=== PATIENT | male | born 1955 | race Caucasian/White ===

== ENCOUNTER → 2018-09-19 08:18 | Outpatient (POV) | payer BC, SELFPAY | PROVIDERS: Visit Provider Dermatology | DX: Z00.00 Encounter for general adult medical examination without abnormal findings (principal) ==

== ENCOUNTER 2019-04-10 13:00 | Outpatient (RCR) | payer MEDICARE, SELFPAY | END 2019-04-10 13:35 | disposition home or self-care (01) | LOC: OT 13:00 | PROVIDERS: Visit Provider Internal Medicine | DX: M25.512 Pain in left shoulder (principal) | CPT/HCPCS: 97014; 97110; 97165; G0283 ==

== ENCOUNTER 2020-01-17 08:00 | Outpatient (RCR) | payer MEDICARE, BC, SELFPAY | END 2020-01-17 08:05 | disposition home or self-care (01) | LOC: PT 08:00 | PROVIDERS: Visit Provider Orthopaedic Surgery Adult Reconstructive Orthopaedic Surgery | DX: M51.36 Other intervertebral disc degeneration, lumbar region (principal) | CPT/HCPCS: 97010; 97014; 97033; 97035; 97110; 97163; 97164; G0283 ==

== ENCOUNTER → 2020-04-01 10:57 | Outpatient (POV) | payer MEDICARE, BC, SELFPAY | PROVIDERS: Visit Provider Dermatology | DX: Z00.00 Encounter for general adult medical examination without abnormal findings (principal) ==

== ENCOUNTER → 2020-10-20 14:05 | Outpatient (CLI) | payer MEDICARE, BC, SELFPAY | PROVIDERS: PCP Family Medicine; Visit Provider Family Medicine | DX: I34.0 Nonrheumatic mitral (valve) insufficiency (principal) | CPT/HCPCS: 93306 ==

== ENCOUNTER → 2020-12-08 16:53 | Outpatient (CLI) | payer MEDICARE, BC, SELFPAY ==
--- NOTE | 2020-12-08 16:58 | XR_ITS ---
PROCEDURE: XR CHEST 2V CLINICAL HISTORY: COUGH COMPARISON: No exams were available for comparison FINDINGS: The cardiomediastinal silhouette and pulmonary vascularity are within normal limits. The lung apices are clipped on the exam. Suggest that the patient return at their lesion or and at no additional charge for repeat exam to include the lung apices. The remaining lungs are clear. No acute bony abnormalities. IMPRESSION: No acute finding. Lung apices are clipped on the PA view. Suggest patient return at no additional charge for repeat PA view to include the lung apices. Dictated by: Chandan Mohr MD 12/09/2020 13:05 Chandan Mohr MD in [place] 12/09/2020 13:05
== END ==
PROVIDERS: PCP Family Medicine; Visit Provider Family Medicine
DX: R05 Cough (principal)
CPT/HCPCS: 71046

== ENCOUNTER → 2020-12-22 10:08 | Outpatient (POV) | payer MEDICARE, BC, SELFPAY ==
[2020-12-22 10:25] VITALS: BP 137/80; PULSE 70; RESP 18; O2SAT 98; BMI 27.9
--- NOTE | 2020-12-22 11:40 | HMH.PMCON ---
Assessment and Plan (1) Right low back pain Status: Chronic Category: Medical Code(s): M54.5 - Low back pain (2) Lumbar radiculopathy Status: Chronic Category: Medical Code(s): M54.16 - Radiculopathy, lumbar region - Assessment and plan all Dx Assessment and Plan for all problems:: Patient has not had any recent imaging of his lumbar spine. He has tried and failed conservative therapies of injections along with continued home stretching. He is also tried physical therapy for greater than 6 weeks with no significant relief. He has tried anti-inflammatories with no relief. He has tried taking Flexeril which is caused him to have severe drowsiness. We will place him on Skelaxin 800 mg 1 tablet p.o. twice daily. MRI of his lumbar spine and see him back in the clinic after his imaging to discuss further plan of care and review the MRI results. Patient has been instructed to contact the clinic with any concerns before the next appointment. Dr. Luna has reviewed this note and agrees with this plan of care. This note was dictated using voice recognition software and make contain errors or omissions. HPI - Data of Consult Patient: new to practice Consult date: 12/22/20 Requesting Physician: Delicia Brunner APRN Primary Care Provider: Jose Rodriguez MD - Consult Narrative Reason for consult: Right low back pain, right buttock pain, right leg pain History of present illness: Mr. Awan is a 65 year old male presents today for consultation for chronic right low back and right buttock pain. The pain is radiating into his right leg. Patient reports his pain has been ongoing for years. He says the pain is progressively gotten worse to the point he is unable to lean forward without having significant pain. He says that any work outdoors causes him to have severe pain. His pain generally improves if he stands and walks, however, worsens when rising from a sitting position and with leaning forward to tie his shoes or when doing any outdoor work. He does rate his pain a 5 out of 10. He has tried injective therapy for which he thinks were lumbar epidural steroid injections in the past for which gave him no significant relief. He has tried physical therapy for greater than 6 weeks in the past and does continue with home stretching. He does not have any recent imaging. He does use ice and heat therapies and does take Flexeril, however, it causes severe drowsiness and he has not been taking it. He is interested in injective therapy. CC: Delicia Brunner APRN [facility] History I have reviewed the patient's past medical history: Yes *Have you ever received a pneumonia vaccine?: Yes *Have you received a flu vaccine this season?: Yes Other Surgeries: Yes: No Previous Surgery Amputation: No Fractures: No - *Social History Smoking Status: Never smoker Alcohol Intake: current Alcohol Intake Frequency:: holidays/special occasions only *Occupational Status:: unemployed *Travel in the last 8 weeks: None Family Hx:: No significant family history Review of Systems - Review of Systems Review of Systems General: No recent weight changes, no fever, no sleep disturbances Respiratory: No cough, no shortness of air, no recurring pulmonary infections Cardiovascular/peripheral vascular: No chest pain, no palpitations, no edema, no shortness of breath Gastrointestinal: No new onset incontinence, normal bowel movements reported Genitourinary: No new onset incontinence Musculoskeletal: Right low back pain, right buttock pain, right leg pain worse with leaning forward Psychiatric: Normal mood/affect Neurological: [Denies weakness in extremities], [denies balance issues] Meds Home Medications Medication Instructions Recorded Confirmed Type Aspirin [Aspirin 81mg EC Tab] 81 mg PO DAILY 12/22/20 12/22/20 History Metaxalone [Skelaxin 800mg Tablet] 800 mg PO BID 30 Days #60 tab 12/22/20 Rx Allergies Aller
== END ==
PROVIDERS: PCP Family Medicine; Visit Provider Clinical Nurse Specialist Family Health
DX: M54.5 Low back pain (principal); M54.16 Radiculopathy, lumbar region
CPT/HCPCS: 99202; G0463

== ENCOUNTER → 2020-12-25 14:58 | Outpatient (CLI) | payer MEDICARE, BC, SELFPAY ==
--- NOTE | 2020-12-25 | MR_ITS ---
PROCEDURE: MR LUMBAR SPINE WO CON CLINICAL INDICATION: BACK PAIN Low back pain when bending or sitting. No injury. Symptoms [id number]. Worsening in the last few years. No prior COMPARISON: No exams were available for comparison TECHNIQUE: Standard multiplanar multiecho sequences are performed without contrast. 3-D MIP and myelographic images are also rendered and reviewed FINDINGS: There is normal alignment. Spinal cord ends at the T12-L1 level. There is mild reversal of the lumbar lordosis. T12-L1: Mild degenerative disc disease L1-L2: Degenerative disc disease with anterior osteophytes. Facet and ligamentum hypertrophic change L2-L3: Mild facet and ligamentum hypertrophy L3-L4: Facet and ligamentum hypertrophy with mild bulging disc with a small right paracentral disc herniation with minimal inferior extrusion best detected on the sagittal images.. There is bilateral lateral recess narrowing right greater than left with some impingement upon the right L4 nerve root. Bilateral foraminal narrowing is present. There is transverse canal stenosis measuring 10 mm. L4-5: Degenerative disc disease with bulging disc with moderate facet and ligamentum hypertrophic change with bilateral lateral recess narrowing and moderate to severe bilateral foraminal narrowing left greater than right. L5-S1: Degenerative disc disease with mild concentric bulging disc along with facet and ligamentum hypertrophy. There is a small right foraminal disc osteophyte complex causing right-sided foraminal narrowing and causing some impingement upon the exiting L5 nerve root. 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 IMPRESSION: 1. L3-L4: Facet and ligamentum hypertrophy with mild bulging disc with a small right paracentral disc herniation with minimal inferior extrusion best detected on the sagittal images.. There is bilateral lateral recess narrowing right greater than left with some impingement upon the right L4 nerve root. Bilateral foraminal narrowing is present. There is transverse canal stenosis measuring 10 mm. 2. L4-5: Degenerative disc disease with bulging disc with moderate facet and ligamentum hypertrophic change with bilateral lateral recess narrowing and moderate to severe bilateral foraminal narrowing left greater than right. 3. L5-S1: Degenerative disc disease with mild concentric bulging disc along with facet and ligamentum hypertrophy. There is a small right foraminal disc osteophyte complex causing right-sided foraminal narrowing and causing some impingement upon the exiting L5 nerve root Dictated by: Chandan Mohr MD 12/26/2020 08:17 Chandan Mohr MD in [place] 12/26/2020 08:17
== END ==
PROVIDERS: PCP Family Medicine; Visit Provider Clinical Nurse Specialist Family Health
DX: M54.5 Low back pain (principal)
CPT/HCPCS: 72148; 76376

== ENCOUNTER → 2021-01-01 14:44 | Outpatient (POV) | payer MEDICARE, BC, SELFPAY ==
[2021-01-01 15:15] VITALS: BP 139/78; PULSE 61; RESP 18; O2SAT 96; BMI 27.9
--- NOTE | 2021-01-02 07:46 | HMH.PAINSOAP ---
[facility] Pain Management SOAP Note Subjective:: Patient is a 65-year-old white male who presents today for follow-up. He is being seen in our clinic for chronic right low back pain and right buttock pain. He also has pain in his left low back.. He is having radicular pain into the right leg. His pain has been ongoing for many years. Is progressively gotten worse. Patient is unable to move forward without having significant pain. He does work outdoors which causes him to have severe pain. He says it improves if he stands and walks, however, upon rising from a sitting position and leaning forward to tie his shoes his pain becomes a 10 out of 10. Patient has tried physical therapy in the past for greater than 6 weeks with no significant relief. He has also tried anti-inflammatories with no relief. He does use ice and heat therapy. He did undergo lumbar epidural steroid injection in the past with no relief as well. He has tried taking Flexeril, however overall may be causing the healthcare drowsiness. He is here today to review his imaging of his lumbar spine. His pain is a 7 out of 10 with leaning forward. Review of Systems General: No recent weight changes, no fever, no sleep disturbances Respiratory: No cough, no shortness of air, no recurring pulmonary infections Cardiovascular/peripheral vascular: No chest pain, no palpitations, no edema, no shortness of breath Gastrointestinal: No new onset incontinence, normal bowel movements reported Genitourinary: No new onset incontinence Musculoskeletal: Low back pain worse with leaning forward Psychiatric: Normal mood/affect Neurological: [Denies weakness in extremities], [denies balance issues] Objective:: Physical exam General: Alert and oriented x3, no acute distress, pleasant and cooperative, [on room air] Lungs: Respirations even and unlabored, symmetrical chest expansion Eyes: PERRL Musculoskeletal: Flexion and extension of [] lumbar spine somewhat guarded secondary to pain, deep tendon reflexes normal, strength in upper and lower extremities [5/5], normal gait noted, positive Kemps test Neurological: 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 Patient does have a small herniated disc. He has tried a lumbar epidural steroid injection in the past with no relief. He would like a neurosurgical referral. He is having pain with leaning forward. He has a positive Kemps test. We will schedule him for medial branch block 0.4 joint injection at L3-L4 L4-L5 bilaterally. The pain is on bilateral low back area, however, worse on the right side and into the left leg. He is not on anticoagulation therapy. We will see him back in clinic after his injection to reevaluate his symptoms and he will also undergo referral with Dr. Nick. Risks and benefits of the procedure have been explained to the patient. Patient would like to proceed with the procedure. Possible side effects of corticosteroids have been discussed with the patient. Patient has been instructed to contact the clinic with any concerns before the next appointment. Dr. Luna has reviewed this note and agrees with this plan of care. This note was dictated using voice recognition software and make contain errors or omissions. [facility] History I have reviewed the patient's past medical history: Yes *Have you ever received a pneumonia vaccine?: Yes *Have you received a flu vaccine this season?: Yes Other Surgeries: Yes: No Previous Surgery Amputation: No Fractures: No - *Social History Smoking Status: Never smoker Alcohol Intake: current Alcohol Intake Frequency:: holidays/special occasions only *Occupational Status:: other *Travel in the last 8 weeks: None Family Hx:: No significant family history
== END ==
PROVIDERS: PCP Family Medicine; Visit Provider Clinical Nurse Specialist Family Health
DX: M51.16 Intervertebral disc disorders with radiculopathy, lumbar region (principal); M54.06 Panniculitis affecting regions of neck and back, lumbar region; M47.896 Other spondylosis, lumbar region; M51.26 Other intervertebral disc displacement, lumbar region
CPT/HCPCS: 99212; G0463

== ENCOUNTER 2021-01-09 13:50 | Day surgery (SDC) | payer MEDICARE, BC, SELFPAY ==
[2021-01-09 14:47] VITALS: BP 142/72; PULSE 72; RESP 18; TEMP 37.1; O2SAT 98; BMI 27.1
[2021-01-09 16:45] VITALS: BP 133/76; PULSE 58; RESP 18; O2SAT 98
[2021-01-09 16:47] VITALS: BP 135/80; PULSE 67; RESP 18; O2SAT 98
--- NOTE | 2021-01-09 16:55 | HMH.PMPROC ---
- Procedure Date: 01/09/21 Time: 16:55 Anesthesiologist:: Loida Mary MD Complications:: None Pre-procedure Diagnosis:: Disc disease of the lumbar spine, lumbar facet arthropathy, lumbar spondylosis Post-procedure Diagnosis:: Same Indications for Procedure:: Patient is a very pleasant 65-year-old white male who presents today with chronic low back pain related to that diagnosis. He denies any radiation of pain down his legs. He has trialed and failed conservative treatment including oral pain medication and home stretching program. Has trialed lumbar epidural steroid injection in the past with very minimal pain pain relief. The plan for today for him to undergo diagnostic lumbar L3-L4 and L4-L5 medial branch block/facet joint injections #1 Procedure Details:: Lumbar medial branch block Informed consent was obtained and the risks and benefits of the procedure was explained to the patient. The back was prepped using ChloraPrep. The skin and subcutaneous tissues were anesthetized using lidocaine. I placed 22-gauge spinal needles into the facet joint/medial branches of L3-L4, L4-L5 bilaterally. Needle placement was confirmed with dye. After this we injected 3 mL bupivacaine 0.25% and Depo-Medrol 13 mg into each facet joint/medial branch of L3-L4, L4-5 bilaterally. We used a total of 80 mg Depo-Medrol for all 2 levels bilaterally. The patient tolerated the procedure well with no complications. Plan and Disposition:: Follow-up with the patient in 2 weeks. Will reevaluate pain symptoms at the time.
[2021-01-09 17:10] VITALS: BP 144/82; PULSE 59; RESP 20; O2SAT 98
== END 2021-01-09 17:10 | disposition home or self-care (01) ==
LOC: SC.PAINP 13:53
PROVIDERS: PCP Family Medicine; Visit Provider Anesthesiology Pain Medicine
DX: M51.36 Other intervertebral disc degeneration, lumbar region (principal); M54.06 Panniculitis affecting regions of neck and back, lumbar region; M47.816 Spondylosis without myelopathy or radiculopathy, lumbar region
CPT/HCPCS: 64493; 64494; J1030; Q9966

== ENCOUNTER → 2021-02-02 10:47 | Outpatient (POV) | payer MEDICARE, BC, SELFPAY ==
[2021-02-02 10:56] VITALS: BP 106/74; PULSE 68; RESP 18; O2SAT 95; BMI 27.1
--- NOTE | 2021-02-02 11:13 | HMH.PAINSOAP ---
[facility] Pain Management SOAP Note Subjective:: Patient is a 65-year-old white male who presents today for follow-up after # medial branch block/facet joint injection at L3-L4 L4-L5 bilaterally. He has been treated for degenerative disc disease lumbar spine with lumbar facet arthropathy and lumbar spondylosis. Patient says that he got approximately 60% relief for 6 to 8 hours after the injections. Unfortunately, he says his pain was severe immediately after. He says that during the injection, he had tremendous pain at the fourth injection. He does not want to proceed with further injections at this time. He is also having intermittent numbness into his right lower extremity. He is scheduled to see Dr. Morataya at [facility] on February 13. He would like to defer on any further injective therapy until he discusses a plan of care with Dr. Morataya. He has taken Flexeril which is given him some short-term relief, however, makes him very drowsy. He has tried Zanaflex in the past which is helped him as well. 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 His pain is a 5 out of 10 today. He has tried and failed conservative therapies of anti-inflammatories, physical therapy for more than 6 weeks and continued home stretching. Review of Systems General: No recent weight changes, no fever, no sleep disturbances Respiratory: No cough, no shortness of air, no recurring pulmonary infections Cardiovascular/peripheral vascular: No chest pain, no palpitations, no edema, no shortness of breath Gastrointestinal: No new onset incontinence, normal bowel movements reported Genitourinary: No new onset incontinence Musculoskeletal: Low back pain worse with bending forward and turning and twisting at his waist Psychiatric: Normal mood/affect Neurological: [Denies weakness in extremities], [denies balance issues] Objective:: Physical exam General: Alert and oriented x3, no acute distress, pleasant and cooperative, [on room air] Lungs: Respirations even and unlabored, symmetrical chest expansion Eyes: PERRL Musculoskeletal: Flexion and extension of [] lumbar spine somewhat guarded secondary to pain, deep tendon reflexes normal, strength in upper and lower extremities [5/5], [abnormal gait noted] Neurological: Speech clear, 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 Morataya at [facility] for neurosurgical evaluation. We will order the patient Zanaflex 2 mg 1 tablet p.o. 3 times daily as needed muscle spasms. We will see him back in mid February to reevaluate his symptoms. Patient has been instructed to contact the clinic with any concerns before the next appointment. Dr. Luna has reviewed this note and agrees with this plan of care. This note was dictated using voice recognition software and make contain errors or omissions. [facility] History I have reviewed the patient's past medical history: Yes Medical History: Reports:: Valvular Heart Disease (mitrial valve prolapse) Denies:: Cancer, Diabetes Mellitus Type 1, Diabetes Mellitus Type 2, MRSA, Seizures *Have you ever received a pneumonia vaccine?: Yes *Have you received a flu vaccine this season?: Yes Other Medical History: Denies: Blood Transfusion Reaction Laterality Cases: Left: Arthroscopy Knee, Bilateral: Tonsillectomy Other Surgeries: Yes: No Previous Surgery, Hernia Repair, Other (hand surgery) Amputation: No Fractures: No - *Social History Smoking Status: Never smoker Alcohol Intake: never Alcohol Intake Frequency:: holidays/special occasions only *Occupational Status:: retired Housing: house Household Members: spouse *Travel in the last 8 weeks: None Family Hx:: No significant family history
== END ==
PROVIDERS: PCP Family Medicine; Visit Provider Clinical Nurse Specialist Family Health
DX: M51.36 Other intervertebral disc degeneration, lumbar region (principal); M47.816 Spondylosis without myelopathy or radiculopathy, lumbar region; M54.06 Panniculitis affecting regions of neck and back, lumbar region
CPT/HCPCS: 99212; G0463

== ENCOUNTER → 2021-09-04 13:43 | Outpatient (CLI) | payer MEDICARE, BC, SELFPAY | PROVIDERS: PCP Family Medicine; Visit Provider Nurse Practitioner Family | DX: G47.00 Insomnia, unspecified (principal); G47.19 Other hypersomnia; G47.33 Obstructive sleep apnea (adult) (pediatric) | CPT/HCPCS: 94762 ==

== ENCOUNTER → 2021-11-19 14:11 | Outpatient (CLI) | payer MEDICARE, BC, SELFPAY ==
--- NOTE | 2021-11-19 14:15 | CA_ITS ---
FINAL REPORT TECHNIQUE: Color Doppler, duplex Doppler and lemon scale sonography of the bilateral neck arterial vasculature was performed. Velocities were measured in the carotid arteries. Stenosis evaluation based on the validated velocity criteria. CLINICAL HISTORY: BECCA FINDINGS: The peak systolic velocity of the right common carotid artery is 94 cm/s. The peak systolic velocity of the right internal carotid artery is 126 cm/s and end diastolic velocity 39 cm/s. The ICA/CCA ratio is 2.2. A mild amount of plaque is present. The right external carotid artery is patent. The right vertebral artery is patent with antegrade flow. The peak systolic velocity of the left common carotid artery is 103 cm/s. The peak systolic velocity of the left internal carotid artery is 89 cm/s and end diastolic velocity 29 cm/s. The ICA/CCA ratio is 1.2. A mild amount of plaque is present. The left external carotid artery is patent.The left vertebral artery is patent with antegrade flow. IMPRESSION: Less than 50% bilateral carotid stenoses. Bilateral patent vertebral arteries with antegrade flow. If indicated, CTA or MRA could further evaluate. Reviewed, Interpreted and Dictated by Naveen Wylie III, MD Transcribed by Andrew Marie Authenticated by Naveen Wylie III, MD on 11/19/2021 03:10:09 PM [facility]
== END ==
PROVIDERS: PCP Family Medicine; Visit Provider Family Medicine
DX: I65.23 Occlusion and stenosis of bilateral carotid arteries (principal)
CPT/HCPCS: 93880

== ENCOUNTER 2022-04-26 12:17 | Emergency (ER) | payer MEDICARE, BC, SELFPAY ==
[2022-04-26 12:20] VITALS: BP 136/88; PULSE 68; RESP 18; TEMP 36.6; O2SAT 98; BMI 26.6
--- NOTE | 2022-04-26 13:02 | XR_ITS ---
FINAL REPORT CLINICAL HISTORY: SMASHED INDEX FINGER IN CATTLE GATE FINDINGS: 3 views of the right hand were obtained. There is no acute fracture or dislocation. There are mild degenerative changes. There is no soft tissue abnormality. IMPRESSION: No acute process. Reviewed, Interpreted and Dictated by Naveen Wylie III, MD Transcribed by Andrew Marie Authenticated and [facility]
[2022-04-26 13:13] VITALS: BP 136/88; PULSE 68; RESP 18; TEMP 36.6; O2SAT 98; BMI 26.6
--- NOTE | 2022-04-26 13:40 | EXP.UTC ---
Discharge Plan Disposition Patient Disposition: Home, Self-Care Condition: Good Prescriptions Prescriptions: New amoxicillin-pot clavulanate 500-125 mg Tablet 1 tab PO TID 7 Days Qty: 21 0RF No Action rosuvastatin 20 mg tablet 20 mg PO DAILY montelukast 10 mg tablet 10 mg PO DAILY fexofenadine 180 mg tablet 180 mg PO DAILY Breo Ellipta 100-25 mcg/dose blister with device 1 inh INHALATION DAILY coenzyme Q10 400 mg capsule 400 mg PO DAILY valacyclovir 500 mg tablet 500 mg PO PRN aspirin 81 MG tablet,delayed release (DR/EC) 81 mg PO DAILY Referrals Follow up/Referrals: Jose Rodriguez MD [Primary Care Provider] - See instructions Activity Restrictions/Add. Instructions Additional Instructions/Restrictions: Suture instructions: ?You have required stitches today. Please read the following instructions so you know how to care for them: ?1. Keep wound area dry for the first 24 hours. 2?? May clean gently with mild soap and water, after 48 hours to prevent crusting over suture knots. 3. You may shower if your provider gives permission but do not take a bath until the skin is healed.. 4. Never leave a wet dressing or Band-Aid on your stitches as this allows bacteria to reach the area and may cause infection. Band-aids can cause the wound to sweat and not recommended to wear for long periods of time Watch for signs of infection: ? Increasing redness, tenderness or warmth around the suture site ? Unusual swelling around the site ? Appearance of pus around each suture or any red streaks ? Fever If you develop any of the above signs or symptoms of infection, Follow up with Family Physician immediately 5. Suture removal in _8-10___days 6. Return to [facility] or follow up with family doctor for removal. This can be done by any medical provider dur?ing regular hours on Tuesday through Tuesday, by appointment. Clinical Impressions Clinical Impression: Laceration Instructions Patient Instructions: DI for Laceration Repair, DI for Laceration Repair -- Finger Discharge ED Provider: Tasha Martini [facility] HPI General Stated complaint: Cut RT index finger Mode of Arrival: Ambulatory Source of Information: Patient Time Seen by Provider: 04/26/22 13:40 Description of Symptoms (Recalled from Triage Doc. by RN): Laceration to R index finger. Pt reports was using a cattle head gate and his finger got smashed by a lever on the gate. 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 right index finger causing laceration Related Data Home Medications Medication Instructions Recorded Confirmed aspirin 81 mg tablet,delayed 81 mg PO DAILY preventative 12/22/20 04/14/22 release coenzyme Q10 400 mg capsule 400 mg PO DAILY 08/12/21 04/14/22 fexofenadine 180 mg tablet 180 mg PO DAILY 08/12/21 04/14/22 fluticasone furoate 100 1 inh inhalation DAILY 08/12/21 04/14/22 mcg-vilanterol 25 mcg/dose inhalation powder (Breo Ellipta) montelukast 10 mg tablet 10 mg PO DAILY 08/12/21 04/14/22 rosuvastatin 20 mg tablet 20 mg PO DAILY 08/12/21 04/14/22 valacyclovir 500 mg tablet 500 mg PO PRN 04/14/22 04/14/22 Previous Rx's Medication Instructions Recorded amoxicillin 500 mg-potassium 1 tab PO TID 7 days #21 tabs 04/26/22 clavulanate 125 mg tablet Allergies Allergy/AdvReac Type Severity Reaction Status Date / Time morphine Allergy Mild rash Verified 04/14/22 08:01 codeine, Allergy Mild rash Uncoded 08/12/21 10:11 Worker's Comp Is this a Worker's Comp case?: No [facility] Medical History (Updated 04/26/22 @ 14:01 by Tasha Martini APRN) Hi
[2022-04-26 14:34] VITALS: BP 136/88; PULSE 68; RESP 18; TEMP 36.6; O2SAT 98
== END 2022-04-26 14:45 | disposition home or self-care (01) ==
PROVIDERS: Emergency Provider Nurse Practitioner; PCP Family Medicine
DX: S61.210A Laceration without foreign body of right index finger without damage to nail, initial encounter (principal); W23.0XXA Caught, crushed, jammed, or pinched between moving objects, initial encounter; Z23 Encounter for immunization; Z79.51 Long term (current) use of inhaled steroids; Z79.82 Long term (current) use of aspirin; Z79.899 Other long term (current) drug therapy; Z88.0 Allergy status to penicillin; Z88.5 Allergy status to narcotic agent; Z82.49 Family history of ischemic heart disease and other diseases of the circulatory system; Z83.3 Family history of diabetes mellitus; Z83.438 Family history of other disorder of lipoprotein metabolism and other lipidemia; I34.1 Nonrheumatic mitral (valve) prolapse
CPT/HCPCS: 12001; 73130; 90471; 90714; 99213; G0463

== ENCOUNTER → 2022-05-05 12:31 | Outpatient (CLI) | payer MEDICARE, BC, SELFPAY ==
--- NOTE | 2022-05-05 12:49 | XR_ITS ---
FINAL REPORT CLINICAL HISTORY: elbow pain FINDINGS: RIGHT ELBOW 3 views were obtained. There is no acute fracture or dislocation. There are mild degenerative changes. There are small calcifications posterior to the olecranon in the region of the distal triceps tendon. IMPRESSION: Mild degenerative changes with no acute bony abnormality. Reviewed, Interpreted and Dictated by Naveen Wylie III, MD Transcribed by Varsha Granados Authenticated and [facility]
--- NOTE | 2022-05-05 12:49 | XR_ITS ---
FINAL REPORT CLINICAL HISTORY: right hand pain COMPARISON: 04/26/2022 FINDINGS: RIGHT HAND Three views demonstrate no acute fracture. There is no dislocation. The visualized joint spaces are normally aligned. There are mild degenerative changes. The soft tissues are unremarkable. IMPRESSION: Mild degenerative changes with no acute bony abnormality. Reviewed, Interpreted and Dictated by Naveen Wylie III, MD Transcribed by Varsha Granados Authenticated and [facility]
--- NOTE | 2022-05-05 13:56 | XR_ITS ---
FINAL REPORT CLINICAL HISTORY: wrist pain FINDINGS: RIGHT WRIST Three views demonstrate no acute fracture or dislocation. The visualized joint spaces are normally aligned. There are mild degenerative changes. The soft tissues are unremarkable. IMPRESSION: Mild degenerative change with no acute bony abnormality. Reviewed, Interpreted and Dictated by Naveen Wylie III, MD Transcribed by Varsha Granados Authenticated and [facility]
== END ==
PROVIDERS: PCP Family Medicine; Visit Provider Orthopaedic Surgery
DX: M79.641 Pain in right hand (principal); M25.531 Pain in right wrist; M25.521 Pain in right elbow
CPT/HCPCS: 73080; 73110; 73130

== ENCOUNTER → 2022-05-31 20:11 | Outpatient (CLI) | payer MEDICARE, BC, SELFPAY | PROVIDERS: PCP Family Medicine; Visit Provider Nurse Practitioner Family | DX: G47.33 Obstructive sleep apnea (adult) (pediatric) (principal); G47.10 Hypersomnia, unspecified; I34.1 Nonrheumatic mitral (valve) prolapse | CPT/HCPCS: 95811 ==

== ENCOUNTER → 2022-06-02 11:00 | Outpatient (CLI) | payer MEDICARE, BC, SELFPAY ==
--- NOTE | 2022-06-02 11:05 | XR_ITS ---
FINAL REPORT CLINICAL HISTORY: SMASHED 2ND DIGIT X 1 MNTH AGO COMPARISON: 05/05/2022 FINDINGS: RIGHT HAND Three views demonstrate no acute fracture. There is no dislocation. The visualized joint spaces are normally aligned. There is mild narrowing of the 2nd metacarpophalangeal joint. The soft tissues are unremarkable. IMPRESSION: No acute bony abnormality. Mild narrowing of the 2nd MCP joint consistent with osteoarthritis. Reviewed, Interpreted and Dictated by Tim López MD Transcribed by Varsha Granados Authenticated and . [facility]
== END ==
PROVIDERS: PCP Physician Assistant; Visit Provider Physician Assistant
DX: M25.531 Pain in right wrist (principal); S69.91XD Unspecified injury of right wrist, hand and finger(s), subsequent encounter
CPT/HCPCS: 73130

== ENCOUNTER → 2022-11-22 08:31 | Outpatient (CLI) | payer MEDICARE, BC, SELFPAY ==
[2022-11-22 09:19] LABS: Blood Urea Nitrogen 15 mg/dl (9-20); Estimated Glomerular Filt Rate 74 ml/min (>60); GFR (African American) 90 ML/MIN (>60)
== END ==
PROVIDERS: PCP Family Medicine; Visit Provider Family Medicine
DX: I65.23 Occlusion and stenosis of bilateral carotid arteries (principal)
CPT/HCPCS: 36415; 82565; 84520

== ENCOUNTER → 2022-11-24 12:35 | Outpatient (CLI) | payer MEDICARE, BC, SELFPAY ==
--- NOTE | 2022-11-24 12:40 | CT_ITS ---
FINAL REPORT CLINICAL HISTORY: EMMY CAROTID ARTERY STENOSIS, dizziness FINDINGS: CT NECK ANGIO, WITHOUT AND WITH CONTRAST TECHNIQUE: Thin section axial CT with IV contrast supplemented with 3D MIP reconstruction NASCET criteria and technique was utilized during interpretation. FINDINGS: Aortic arch: Arch shows no significant narrowing. Great vessel origins are widely patent. Right carotid: No significant stenosis is seen of the cervical common or internal carotid artery. Left carotid: No significant stenosis is seen of the cervical common or internal carotid artery. Vertebrals: Vertebral arteries are codominant. No significant stenosis is present. IMPRESSION: No significant stenosis of the cervical carotid arteries This study was performed using automated techniques to achieve radiation exposure as low as reasonably Authenticated and [facility]
== END ==
PROVIDERS: PCP Family Medicine; Visit Provider Family Medicine
DX: I65.23 Occlusion and stenosis of bilateral carotid arteries (principal)
CPT/HCPCS: 70498; Q9967

== ENCOUNTER 2023-01-26 08:29 | Day surgery (SDC) | payer MEDICARE, BC, SELFPAY ==
[2023-01-17 09:49] VITALS: BMI 26.2
[2023-01-26 08:42] VITALS: BP 142/68; PULSE 68; RESP 18; TEMP 36.4; O2SAT 94
[2023-01-26 09:07] VITALS: O2SAT 98
--- NOTE | 2023-01-26 10:19 | HMH.SCOPE ---
Procedure: Date: 01/26/23 Patient Date of :: 1955 Procedure Performed:: Colonoscopy Indications:: Surveillance colonoscopy Performing Provider:: Nas Cantrell MD Referring Provider:: Ciro Rodriguez MD Sedation:: See RN records Procedure:: After placing the patient in the left lateral decubitus position, the colonoscopy was gently inserted into the rectum and under direct visualization advanced to the cecum which was identified by transillumination in the right lower quadrant, identification of the ileocecal valve, appendiceal orifice, and cecal strap. Color, texture, mucosa, and anatomy of the colon were carefully examined with the scope. Findings:: Anal canal: normal Rectum: hemorrhoids Sigmoid colon: diverticulosis Descending colon: diverticulosis Splenic flexure: normal Transverse colon: normal without polyps or inflammatory changes Hepatic flexure: diverticulosis Ascending colon: normal without polyps or inflammatory changes Cecum: normal Terminal ileum: not visualized Impression: diverticulosis fair bowel preparation Recommendations:: Higher fiber diet Repeat colonoscopy in 5 years Complications:: None Estimated blood obtained (mL): 0 Colonoscopy Component Colonoscopy Component Was a colonoscopy performed during today's procedure?: Yes Recommended follow up colonoscopy of at least 10 years?: Yes
[2023-01-26 10:21] VITALS: BP 79/51; PULSE 74; RESP 16; TEMP 36.4; O2SAT 94
[2023-01-26 10:31] VITALS: BP 89/50; PULSE 69; RESP 16; TEMP 36.4; O2SAT 93
[2023-01-26 10:41] VITALS: BP 101/65; PULSE 65; RESP 18; TEMP 36.4; O2SAT 98
[2023-01-26 10:51] VITALS: BP 115/79; PULSE 64; RESP 18; TEMP 36.4; O2SAT 100
--- NOTE | 2023-01-26 15:51 | P.PN_ITS ---
[facility] Disclaimer: The information contained in this section may have been updated after the patient was seen, as this information can be updated by other users. Medical History History of abdominal hernia Mild mitral valve prolapse BLANCA (obstructive sleep apnea) Surgical History History of colonoscopy History of inguinal hernia repair History of repair of anterior cruciate ligament of left knee History of tonsillectomy Hx of thumb surgery Family History Other Aneurysm Coronary artery disease Diabetes Hyperlipidemia Hypertension Social History Smoking Status: Never smoker alcohol intake: current substance use type: denies use current occupational status: retired Travel in the last 8 weeks: None household members: spouse housing: house lives independently: No marital status: education level: college service: No current occupational exposures/hazards: Yes caffeine: Yes do you feel safe at home: Yes victim of physical abuse: No victim of emotional abuse: No victim of sexual abuse: No would you like helpful sources: No [facility] Anesthesia Checklist Patient Identification Patient Identification: Arm Band and Family Structural Data Admitted From: Home Planned Operative Procedure/s: colooscopy Consent for Planned Operative Procedure(s) Verified: Yes Verified Documents: Surgical Consent and History and Physical NPO Status Verified Time NPO: 00:00 Additional verifications Patient : No Anesthesia Reactions: No Hx Blood Transfusions: No Blood Transfusion Reaction: No Cephalosporin Allergy: No Previous Colonoscopy: No Airway Assessment C-Spine Mobility Assessed: Yes TMJ Mobility Assessed: Yes Anesthesia Plan Anesthesia Type: MAC
== END 2023-01-26 10:51 | disposition home or self-care (01) ==
PROVIDERS: PCP Psychiatry & Neurology Sleep Medicine; Visit Provider Internal Medicine
PROC: 0DJD8ZZ Inspection of Lower Intestinal Tract, Via Natural or Artificial Opening Endoscopic (ICD-10-PCS; CPT 45378; principal; 2023-01-26 09:30)
DX: Z12.11 Encounter for screening for malignant neoplasm of colon (principal); K64.8 Other hemorrhoids; K57.30 Diverticulosis of large intestine without perforation or abscess without bleeding
CPT/HCPCS: G0121; J2704

== ENCOUNTER 2023-07-28 10:56 | Outpatient (CLI) | payer MEDICARE, BC, SELFPAY ==
--- NOTE | 2023-07-28 11:11 | XR_ITS ---
FINAL REPORT CLINICAL HISTORY: knee pain COMPARISON: None FINDINGS: Three views of the left knee reveal no evidence of fracture or dislocation. The patient has undergone a prior anterior cruciate ligament repair with screws in the proximal tibia and distal femur. The bony alignment is normal. Mild degenerative change is present. There is no evidence of joint effusion. No localized soft tissue abnormality is seen. IMPRESSION: Prior ACL repair. Mild degenerative change. Reviewed, Interpreted and Dictated by Naveen Wylie III, MD Transcribed by Inocencia Loja Authenticated and [facility]
--- NOTE | 2023-07-28 11:11 | XR_ITS ---
FINAL REPORT CLINICAL HISTORY: knee pain COMPARISON: None FINDINGS: Three views of the right knee reveal no evidence of fracture or dislocation. The bony alignment is normal. Mild degenerative changes present. There is no evidence of joint effusion. No localized soft tissue abnormality is identified. IMPRESSION: Mild degenerative change, no acute abnormality identified. Reviewed, Interpreted and Dictated by Naveen Wylie III, MD Transcribed by Inocencia Loja Authenticated and [facility]
== END 2023-07-28 23:59 ==
LOC: RAD 10:57
PROVIDERS: PCP Family Medicine; Visit Provider Orthopaedic Surgery
DX: M25.561 Pain in right knee (principal); M25.562 Pain in left knee
CPT/HCPCS: 73562

== ENCOUNTER 2024-01-17 16:17 | Outpatient (POV) | payer MEDICARE, BC, SELFPAY | END 2024-01-17 23:59 | disposition home or self-care (01) | LOC: SC 16:18 | PROVIDERS: PCP Family Medicine; Visit Provider Dermatology | DX: Z00.00 Encounter for general adult medical examination without abnormal findings (principal) ==

== ENCOUNTER 2024-02-07 11:45 | Outpatient (CLI) | payer MEDICARE, BC, SELFPAY ==
--- NOTE | 2024-02-07 | CA_ITS ---
APPROVED REPORT Exam: Exercise Treadmill Technologist: Louisa Hubbard Ht: 5 ft 9 in Wt: 180 lbs BSA: 1.98 m2 HR: 60 bpm BP: 122/68 mmHg Rhythm: NSR Indications: Dyspnea Medical History Medications: Aspirin,,,,, Albuterol,,,,, Montelukast,,,,, BREo,,,,, ValACYCLOVIR,,,,, RoSUVASTATIN,,,,, Fexofenadine,,,,, Co Q10,,,,, Stress Test Details Test: Alexys HR Resting HR: 67 bpm Max Heart Rate (APMHR): 150 bpm Max HR Achieved: 132 bpm Target HR (85% APMHR): 128 bpm % of APMHR: 88 Recovery HR: 82 bpm HR response to stress: Normal HR response to stress BP Resting BP: 122.0/68.0 mmHg Max BP: 168.0/80.0 mmHg Recovery BP: 148.0/82.0 mmHg BP response to stress: Normal blood pressure response to stress. ECG Resting ECG: Sinus rhythm Stress EC.[address] depression Arrhythmia: PACs, PVCs Recovery ECG: Return to baseline within 3 minutes of recovery Recovery Arrhythmia: PACs PVCs Clinical Exercise duration: 05:48 min Highest Stage Achieved: Exercise capacity: 7.0 METs Overall Exercise Capacity for Age: Average Stress ECG Conclusion The patient was able to exercise for a total of 5 minutes, 48 seconds. He achieved a total of 7 METS. He has average exercise capacity compared to age and sex matched peers. Symptoms: Dyspnea Arrhythmias/Ectopy: PAC, PVCs ST-T Changes: 0.[address] depression Conclusion: Average exercise capacity. No evidence of ischemia on ECG at peak stress. Myoview images reported separately. Test Summary REST . . . . . . . Sitting REST 03:03 0.0 0.0 67 . 122/ 68 . . Stage 1 01:00 10.0 1.7 90 . . . . Stage 1 02:00 10.0 1.7 104 . 126/ 70 . . Stage 1 03:00 10.0 1.7 109 . 126/ 70 . . Stage 2 01:00 12.0 2.5 121 . . . . Stage 2 02:00 12.0 2.5 129 . 154/ 82 . . Stage 2 02:48 12.0 2.5 132 . 154/ 82 . Stop exercise at 05:48 RECOVERY 01:00 0.0 0.0 104 . 168/ 80 . . RECOVERY 02:00 0.0 0.0 88 . 168/ 80 . . RECOVERY 03:00 0.0 0.0 79 . 154/ 85 . . RECOVERY 03:48 0.0 0.0 84 . 148/ 82 . . Electronically signed by : Maki Burrell MD 02/07/2024 23:54:18
--- NOTE | 2024-02-07 11:46 | NM_ITS ---
APPROVED REPORT Exam: Nuclear Stress Test Indication: soa Patient Location: Outpatient Stress Tech: Louisa Hubbard NM Tech:Shakila Mortensen, ARRT, RT (R)(N) Ht: 5 ft 9 in Wt: 180 lbs HR: 67 bpm BP: 122/68 mmHg BSA: 1.98 m2 Rhythm: NSR TID: 1.05 BMI: 26.5 History: soa Procedure: Patient exercised on Alexys protocol 5:48 minutes and sec, resting heart rate 67 bpm, resting blood pressure 122/68 mmHg, with exercise maximum heart rate achived was 132 bpm which is 88 % of the maximum predicted heart rate and blood pressure was 168/80 mmHg. Test was stopped due to fatigue. Patient denied any complaint of chest pain. Patient has exercise capacity, achieved 7.0 METs of workload on treadmill, the blood pressure response to exercise was . Cardiac Stress and Resting SPECT Images: Cardiac Stress and Resting SPECT images were obtained using technetium 99m Myoview 31.2 mCi stress and 10.43 mCi at rest. Resting and stress imaging in supine and prone positions demonstrate a medium sized, moderate, fixed perfusion defect in the basal to mid inferior LV wall. Gated imaging demonstrates severe LV dilation. There is mild hypokinesis of the basal inferior LV wall. LVEF is calculated at 55%. Conclusion: Medium sized, moderate, fixed perfusion defect in the basal to mid inferior LV wall. Gated imaging demonstrates severe LV dilation. There is mild hypokinesis of the basal inferior LV wall. LVEF is calculated at 55%. Of note, in the setting of known severe MR, the patient's LVEF of 55% is considered to be reduced LV systolic function (i.e. LVEF < 60% in the setting of severe MR) Electronically signed by : Maki Burrell MD 02/08/2024 00:02:57
--- NOTE | 2024-02-07 12:45 | CA_ITS ---
FINAL REPORT CLINICAL HISTORY: carotid bruit- bilateral COMPARISON: 11/19/2021 FINDINGS: RIGHT CAROTID: CCA PSV -78 cm/sec ICA PSV -120 cm/sec ICA/CCA PSV ratio - 2.46. Comments: Mild plaque disease is noted. LEFTCAROTID: CCA PSV -84. cm/sec ICA PSV -92. cm/sec ICA/CCA PSV ratio -1.6. Comments: Mild plaque disease is noted. Antegrade flow is seen within the vertebral arteries. IMPRESSION: Carotid stenosis classified less than 50%, with mild plaque bilaterally. Antegrade flow in the vertebral arteries. Reviewed, Interpreted and Dictated by Jose Panda MD Transcribed by Inocencia Loja Authenticated and [facility]
--- NOTE | 2024-02-07 12:45 | CA_ITS ---
APPROVED REPORT EXAM: Comprehensive 2D, Doppler, and color-flow Echocardiogram Skatesman: Valery Herron, RT(R) Ht: 5 ft 9 in Wt: 180lbs BSA: 1.98 BP: 126/70 mmHg Indications: dyspnea, murmur, fatigue, CHOW, hyperlipidemia, BLANCA, MVP, MR 2D Dimensions Left Atrium 5.07 cm M: 3.0 - 4.0 LA Volume 80.80 mL LVOT 1.94 cm (M/F) 1.5-2.5 LA Volume Index 40.81 mL/m2 (M/F) 16-34 EF AP4 55.60 % GL Strain -20.0 % M-Mode Dimensions RVDd 2.55 cm (0.9-2.6) LVDd 5.63 cm (3.5-5.7) Ao Diam 4.04 cm (2.0-3.7) LVDs 3.67 cm (3.5-5.7) IVSd 1.61 cm (0.6-1.1) PWd 1.21 cm (0.6-1.1) EF (Teich) 63.40% FS 34.80% EDV (Teich) 155.60 mL ESV (Teich) 57.00 mL LV Diastology E Decel Time 183 (160-240 msec) E/A Ratio 1.3 MED E' 6.3 (>= 7 cm/sec) E'/MED E' Ratio 18.87 (<= 14) LAT E' 9.9 (>= 10 cm/sec) E/LAT E' Ratio 12.01 (<= 14) Aortic Valve LVOT Max 145.0 (70-110 cm/s) NEGRITO Index 0.32 cm2/m2 LVOT VTI 24.52 cm AoV Peak Toby. 488.0 (50-130 cm/s) AI PHT 455.00 ms AO Mean GR. 47.40 (<5 mmHg) AO VTI 114.3 (18-25 cm) NEGRITO (VTI) 0.63 (2.5-4.5 cm2) Mitral Valve MV E Max Toby. 119.0 (40-130 cm/s) MV A Velocity 90.0 (40-130 cm/s) E/A Ratio 1.31 MV Decel. Time 183 (160-240 ms) MV PHT 78.0 ms Left Ventricle The left ventricle is normal size. The left ventricular systolic function is normal. The left ventricular ejection fraction is within the normal range. There is increased LV wall thickness. There is normal LV segmental wall motion. Grade 2 diastolic dysfunction is present. LVEF is 65%. Right Ventricle The right ventricle is normal size. The right ventricular systolic function is normal. Atria Left atrium is moderately dilated. The right atrium size is normal. There is no Doppler evidence of interatrial shunt. Aortic Valve The aortic valve is mildly thickened. There is no aortic valvular stenosis. Mild aortic regurgitation. Mitral Valve There is prolapse of the posterior mitral valve leaflet. Flail segment is also possibly present. No evidence of mitral valve stenosis. Severe mitral regurgitation is present. The MR jet is eccentric and anteriorly directed. The mechanism of mitral regurgitation is likely William class II due to severe posterior prolapse (with or without flail). Tricuspid Valve The tricuspid valve leaflets are thin and pliable. Trace tricuspid regurgitation. There is insufficient TR jet to estimate RVSP. Pulmonic Valve The pulmonary valve is normal in structure. Mild pulmonic regurgitation. Great Vessels The aortic root is normal in size. The ascending aorta is mildly dilated, measuring 4.0 cm in diameter. IVC is normal in size and collapses >50% with inspiration. Pericardium There is no pericardial effusion. Other Information Study Quality: Fair Conclusion Normal biventricular systolic function. Moderate LA dilation. MV posterior leaflet prolapse. Flail segment is also possibly present. Severe mitral regurgitation is present. The MR jet is eccentric and anteriorly directed. Mild AI, mild PI. In the setting of severe MR (William class II due to posterior MV leaflet prolapse with/without flail segment), further evaluation with SANTIAGO is recommended to conclusively evaluate the mechanism and severity of MR. Early referral to interventional cardiology + cardiothoracic surgery is also suggested. Electronically signed by : Maki Burrell MD 02/07/2024 23:38:30
== END 2024-02-07 23:59 | disposition home or self-care (01) ==
LOC: RAD 11:46
PROVIDERS: PCP Family Medicine; Visit Provider Nurse Practitioner Family
DX: R06.09 Other forms of dyspnea (principal); R01.1 Cardiac murmur, unspecified; R09.89 Other specified symptoms and signs involving the circulatory and respiratory systems; I34.1 Nonrheumatic mitral (valve) prolapse; I77.810 Thoracic aortic ectasia; I34.0 Nonrheumatic mitral (valve) insufficiency
CPT/HCPCS: 78452; 93017; 93018; 93306; 93880; A9502

== ENCOUNTER 2024-02-09 14:07 | Outpatient (CLI) | payer MEDICARE, BC, SELFPAY ==
--- NOTE | 2024-02-09 14:08 | CT_ITS ---
FINAL REPORT TECHNIQUE: Thin section axial CT with contrast with multiplanar reconstruction This study was performed with techniques to keep radiation doses as low as reasonably achievable, (ALARA). Individualized dose reduction techniques using automated exposure control or adjustment of mA and/or kV according to the patient''s size were employed. CLINICAL HISTORY: aortic root dilation COMPARISON: None FINDINGS: Pulmonary vessels enhance in normal fashion without evidence of embolism. There is no evidence of aortic dissection. Aortic sinus is enlarged measuring 44 mm. The mid ascending aorta measures 35 mm and is normal. The descending thoracic aorta measures 28 mm and normal. No pulmonary mass or infiltrate is present. There is no significant pleural effusion. There is no significant pericardial effusion. No mediastinal or hilar adenopathy is present. 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 Reviewed, Interpreted and Dictated by Jose Panda MD Transcribed by Bridget Baker Authenticated and [facility]
--- NOTE | 2024-02-09 14:08 | US_ITS ---
FINAL REPORT CLINICAL HISTORY: abdominal bruit COMPARISON: None FINDINGS: ULTRASOUND ABDOMINAL AORTA Findings: Sagittal and transverse images with Doppler exam was performed of the aorta. There is no evidence of abdominal aortic aneurysm. Aorta measures up to 2.1 cm. Mild plaque disease is noted. Proximal iliac vessels are normal in caliber. Aorta is patent by Doppler exam without gross stenosis. IMPRESSION: No evidence of aortic aneurysm Reviewed, Interpreted and Dictated by Jose Panda MD Transcribed by Bridget Baker Authenticated and [facility]
[2024-02-09 15:33] LABS: Blood Urea Nitrogen 17 mg/dl (9-20); Estimated Glomerular Filt Rate 83 ml/min (>60); GFR (African American) 101 ML/MIN (>60)
== END 2024-02-09 23:59 | disposition home or self-care (01) ==
LOC: RAD 14:08
PROVIDERS: PCP Nurse Practitioner Family; Visit Provider Nurse Practitioner Family
DX: I77.810 Thoracic aortic ectasia (principal); R09.89 Other specified symptoms and signs involving the circulatory and respiratory systems
CPT/HCPCS: 36415; 71275; 76705; 82565; 84520; Q9967

== ENCOUNTER 2024-02-15 06:17 | Day surgery (SDC) | payer MEDICARE, BC, SELFPAY ==
[2024-02-15] VITALS (7 sets, daily range): BP systolic 103–120; BP diastolic 66–78; PULSE 61–74; RESP 16–22; TEMP 36.2–36.8; O2SAT 93–96; BMI 25.8
--- NOTE | 2024-02-15 06:30 | ECG_ITS ---
APPROVED REPORT Exam: Resting ECG HR:61 bpm ECG Measurements Heart Rate 61 AXES AR 191 P 46 QRSd 144 QRS -20 QT 436 T -9 QTc 439 Conclusion SINUS RHYTHM WITH SINUS ARRHYTHMIA RIGHT BUNDLE BRANCH BLOCK [120+ ms QRS DURATION, UPRIGHT V1, 40+ ms S IN I/aVL/V4/V5/V6] ABNORMAL ECG UNCONFIRMED REPORT Electronically signed by : Riley Miguel MD 02/15/2024 17:24:37
[2024-02-15] MEDS: LACTATED RINGERS 1000ML 1,000 ML 25 ML IV (06:44)
[2024-02-15 07:04] LABS: Basophils # 0.1 K/mm3 (0-0.2); Basophils % 1.2 % (0.1-2.0); Eosinophils # 0.3 K/mm3 (0.0-0.4); Eosinophils % 6.2 % (0.1-12.0); Hematocrit 42.2 % (42.0-52.0); Hemoglobin 13.9 g/dL (14.1-18.0); Lymphocytes % 19.2 % (10-50); Mean Corpuscular Hemoglobin 30.3 pg (27.0-31.2); Mean Corpuscular Volume 91.7 fl (80-94); Mean Platelet Volume 8.6 fl (7.4-10.4); Monocytes # 0.3 K/mm3 (0.1-1.0); Neutrophils # 3.7 K/mm3 (1.8-7.8); Neutrophils % 67.4 % (37.0-80.0); Platelet Count 168 K/mm3 (142-424); Red Cell Distribution Width 14.2 % (11.5-17.5); White Blood Count 5.4 K/mm3 (4.8-10.8)
--- NOTE | 2024-02-15 07:08 | CA_ITS ---
APPROVED REPORT EXAM: Comprehensive 2D, Doppler, and color-flow Echocardiogram Geothermal Plant Manager: Vandana Obregon RVT Ht: 5 ft 9 in Wt: 180lbs BSA: 1.98 BP: 135/72 mmHg Indications: SEVERE MR,CHOW,ABN EKG,CAD,HLD,ADN EKG Procedure After obtaining informed consent, patient underwent transesophageal echo in the [facility]. Type of Sedation : MAC Sedation was administered by Yaya ShortN.AaRffaele Sedation start time: 8:25 Case end Time: 8:45 Sedation was achieved intravenously with: Versed () Transesophageal probe was inserted and advanced into esophagus without difficulty by Dr. Brandt Burrell. The SANTIAGO was performed without complications. Throughout the procedure, the blood pressure, pulse oximetry, cardiac rhythm, and rate were monitored. The patient tolerated the procedure without adverse effects. Recovery from conscious sedation was uneventful and vital signs were stable. Left Ventricle Left ventricle is severely dilated. The left ventricular systolic function is normal. The left ventricular ejection fraction is within the normal range. Proximal septal thickening is noted. There is normal LV segmental wall motion. LVEF is 60%. Right Ventricle Right ventricle is moderately dilated. Right ventricle is mildly hypokinetic. Atria Left atrium is severely dilated. No thrombus is visualized in the left atrium or appendage. Right atrium is mildly dilated. Interatrial septum is intact without evidence of ASD or PFO. Aortic Valve The aortic valve is normal in structure. The aortic valve is trileaflet. There is no aortic valvular stenosis. Mild aortic regurgitation. 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 There is severe bileaflet MV prolapse (posterior> anterior) with presence of a large coaptation gap. There is also flail A2 segment. No evidence of mitral valve stenosis. MVA by PHT method is 5.3 cm???. Severe degenerative mitral regurgitation (DMR). The MR jet is eccentric and multidirectional. The mechanism of severe MR is likely William class II in the setting of bileaflet MV prolapse and flail anterior segment. There is also pulmonary vein systolic flow reversal present, suggestive of significant MR. EROA by PISA method is 0.80 cm???. Regurgitant volume is 80 mL. Tricuspid Valve The tricuspid valve leaflets are thin and pliable. Trace tricuspid regurgitation. There is insufficient TR jet to estimate RVSP. Pulmonic Valve The pulmonary valve is normal in structure. Mild pulmonic regurgitation. Great Vessels The aortic root is normal in size. The ascending aorta is normal in size. Pericardium There is no pericardial effusion. Other Information Study Quality: Fair Conclusion Low-normal LV systolic function (LVEF 60%) in the setting of severe MR. Biatrial dilation. 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 There is severe bileaflet MV prolapse (posterior> anterior) with presence of a large coaptation gap. There is also flail A2 segment. Severe degenerative mitral regurgitation (DMR). The MR jet is eccentric and multidirectional. The mechanism of severe MR is likely William class II in the setting of bileaflet MV prolapse and flail anterior segment. There is also pulmonary vein systolic flow reversal present, suggestive of significant MR. EROA by PISA method is 0.80 cm???. Regurgitant volume is 80 mL. MVA by PHT method is 5.3 cm???. In the setting of persistent symptoms and severe degenerative MR (William class II), early referral for cardiothoracic surgical evaluation is recommended. Electronically signed by : Maki Burrell MD 02/15/2024 12:19:31
[2024-02-15 07:13] LABS: Blood Urea Nitrogen 17 mg/dl (9-20); Calcium 8.9 mg/dl (8.4-10.2); Carbon Dioxide 26 mmol/L (22.0-30.0); Chloride 109 mmol/L (98-107); Creatinine Clearance Estimated 79 mL/min (50-200); Estimated Glomerular Filt Rate 83 ml/min (>60); GFR (African American) 101 ML/MIN (>60); Glucose 106 mg/dl (74-100); Sodium 138 mmol/L (136-145)
[2024-02-15 07:18] LABS: INR 0.96 (0.9-1.1); Prothrombin Time 10.8 seconds (10.1-12.5)
--- NOTE | 2024-02-15 07:18 | P.PNANES_ITS ---
[facility] Disclaimer: The information contained in this section may have been updated after the patient was seen, as this information can be updated by other users. Medical History Atypical angina Carotid artery stenosis Ascending aorta dilation Severe mitral regurgitation Abnormal findings on diagnostic imaging of heart and coronary circulation Abnormal electrocardiogram [ECG] [EKG] Hyperlipidemia Fatigue Mitral regurgitation Abdominal bruit Aortic root dilatation Dyspnea on exertion Carotid bruit Cardiac murmur History of abdominal hernia Mild mitral valve prolapse BLANCA (obstructive sleep apnea) Surgical History Hx of thumb surgery History of colonoscopy History of tonsillectomy History of inguinal hernia repair History of repair of anterior cruciate ligament of left knee Family History Other Aneurysm Coronary artery disease Diabetes Hyperlipidemia Hypertension Social History Smoking Status: Never smoker alcohol intake: never substance use type: denies use current occupational status: employed Travel in the last 8 weeks: None household members: spouse housing: house lives independently: No marital status: education level: college service: No current occupational exposures/hazards: Yes caffeine: Yes do you feel safe at home: Yes victim of physical abuse: No victim of emotional abuse: No victim of sexual abuse: No would you like helpful sources: No [facility] Anesthesia Checklist Patient Identification Patient Identification: Arm Band and Verbal (Name & ) Structural Data Admitted From: Home Planned Operative Procedure/s: SANTIAGO Consent for Planned Operative Procedure(s) Verified: Yes Verified Documents: Surgical Consent and History and Physical NPO Status Verified Time NPO: 00:00 Additional verifications Anesthesia Reactions: No Hx Blood Transfusions: No Blood Transfusion Reaction: No Airway Assessment Mallampati Score:: Class II C-Spine Mobility Assessed: Yes TMJ Mobility Assessed: Yes Dentition: Good Dentition Neurological Assessment Level of Consciousness: Awake Hx Seizures: No Numbness or tingling in extremities: No Anesthesia Plan Anesthesia Risk discussed: Yes Anesthesia Plan: Verified ASA Class: III Anesthesia Type: MAC
== END 2024-02-15 09:27 | disposition home or self-care (01) ==
PROVIDERS: PCP Family Medicine; Visit Provider Internal Medicine
DX: I34.0 Nonrheumatic mitral (valve) insufficiency (principal); R53.83 Other fatigue; R06.09 Other forms of dyspnea
CPT/HCPCS: 80048; 85025; 85610; 85730; 93005; 93270; 93312; 93319; J2250; J7120

== ENCOUNTER 2024-02-20 09:37 | Day surgery (SDC) | payer MEDICARE, BC, SELFPAY ==
[2024-02-20] VITALS (7 sets, daily range): BP systolic 106–145; BP diastolic 37–87; PULSE 59–82; RESP 17–18; TEMP 36.6; O2SAT 95–98; BMI 26.6
--- NOTE | 2024-02-20 07:17 | IR_ITS ---
APPROVED REPORT Patient Location: Outpatient Player Development Executive: JANNET Samaniego RT (R) PROCEDURES Left heart catheterization Left ventriculogram Selective coronary angiogram INDICATION Preoperative evaluation for mitral valve repair Informed consent was obtained prior to the procedure. COMPLICATIONS NONE Estimated Blood Loss: LESS THAN 10 ML TECHNIQUE One percent lidocaine used to anesthetize the right anterior aspect of the wrist. The right radial artery was accessed via the Seldinger technique. A 6 Yakut sheath was placed in the right radial artery. 2.5 mg of Verapamil, 800 mcg of nitroglycerin, 1mg Lidocaine and 5000 U Heparin were given through the arterial sheath. The papa catheter was also used to perform left heart catheterization, left ventriculogram and selective coronary angiogram. At the end of the procedure the sheath was removed good hemostasis was achieved using Traclet band, patient was transferred to the postop holding area in stable condition. ANGIOGRAPHIC RESULTS The left main artery Normal The left anterior descending artery Normal The circumflex artery Dominant normal The right coronary artery Normal The BENAVIDES ventriculogram reveals Normal 65% The left ventricular end-diastolic pressure 15 mmHg IMPRESSION Normal coronary arteries Normal ejection fraction Borderline LVEDP PLAN 1. Proceed with surgical mitral valve repair Electronically signed by : Yuval Krause MD 02/20/2024 15:23:08
[2024-02-20 13:58] LABS: Basophils # 0.1 K/mm3 (0-0.2); Basophils % 0.7 % (0.1-2.0); Eosinophils # 0.3 K/mm3 (0.0-0.4); Eosinophils % 3.6 % (0.1-12.0); Hematocrit 47.2 % (42.0-52.0); Hemoglobin 15.5 g/dL (14.1-18.0); Lymphocytes # 1.2 K/mm3 (0.7-4.5); Lymphocytes % 15.1 % (10-50); Mean Corpuscular HGB Conc 32.9 g/dL (31.8-35.4); Mean Corpuscular Hemoglobin 30.3 pg (27.0-31.2); Mean Corpuscular Volume 92.1 fl (80-94); Mean Platelet Volume 8.6 fl (7.4-10.4); Monocytes # 0.5 K/mm3 (0.1-1.0); Monocytes % 5.8 % (1.7-9.3); Neutrophils # 6.1 K/mm3 (1.8-7.8); Neutrophils % 74.7 % (37.0-80.0); Platelet Count 189 K/mm3 (142-424); Red Blood Count 5.13 M/mm3 (4.60-6.20); White Blood Count 8.2 K/mm3 (4.8-10.8)
[2024-02-20 14:51] LABS: Chloride 105 mmol/L (98-107); Sodium 138 mmol/L (136-145)
[2024-02-20 14:54] LABS: Blood Urea Nitrogen 13 mg/dl (9-20); Carbon Dioxide 28 mmol/L (22.0-30.0); Creatinine Clearance Estimated 79 mL/min (50-200); Estimated Glomerular Filt Rate 74 ml/min (>60); GFR (African American) 89 ML/MIN (>60)
[2024-02-20 14:55] LABS: Calcium 8.7 mg/dl (8.4-10.2); Glucose 94 mg/dl (74-100)
[2024-02-20] MEDS: HEPARIN 1,000 UNITS/ML 10ML VIAL (CATH LAB) 10000 UNIT IV (15:00)
[2024-02-20] MEDS: VERAPAMIL 2.5MG/ML 2ML VIAL 2.5 MG IV (15:00)
[2024-02-20] MEDS: diphenhydrAMINE 50MG/ML VIAL 50 MG IV (15:00)
[2024-02-20] MEDS: 0.9 % SODIUM CHLORIDE 500 ML 25 ML IV (15:01)
[2024-02-20] MEDS: HEPARIN 1,000 UNITS/500ML NS (CATH LAB) 3000 UNIT IV (15:02)
[2024-02-20] MEDS: MIDAZOLAM HCL 1MG/1ML 5ML VIAL 1 MG IV (15:03)
[2024-02-20] MEDS: NITROGLYCERIN 800MCG/8ML SYR (CATH LAB) 800 MCG IA (15:23)
[2024-02-20] MEDS: IOPAMIDOL-370 (76%);100ML BOTTLE 80 ML IV (15:58)
--- NOTE | 2024-02-20 16:09 | SUR.PHASEII ---
sitting up in bed eating sandwich and chips.
== END 2024-02-20 16:52 | disposition home or self-care (01) ==
PROVIDERS: PCP Family Medicine; Visit Provider Internal Medicine
DX: R93.1 Abnormal findings on diagnostic imaging of heart and coronary circulation (principal); R53.83 Other fatigue; R06.02 Shortness of breath; Z79.899 Other long term (current) drug therapy; I20.89 Other forms of angina pectoris; I65.23 Occlusion and stenosis of bilateral carotid arteries; E78.5 Hyperlipidemia, unspecified; I34.0 Nonrheumatic mitral (valve) insufficiency
CPT/HCPCS: 80048; 85025; 93458; 99152; C1725; C1769; J1200; J1644; J2250; Q9967

== ENCOUNTER 2024-02-23 12:18 | Outpatient (CLI) | payer MEDICARE, BC, SELFPAY ==
--- NOTE | 2024-02-23 12:37 | CT_ITS ---
FINAL REPORT TECHNIQUE: Axial images through the abdomen and pelvis were performed without contrast. This study was performed with techniques to keep radiation doses as low as reasonably achievable, (ALARA). Individualized dose reduction techniques using automated exposure control or adjustment of mA and/or kV according to the patient's size were employed. CLINICAL HISTORY: MITRAL VALVE PROLAPSE FINDINGS: ABDOMEN: The lung bases are clear. The heart size is normal. Limited images of the liver are unremarkable. The spleen is normal. No adrenal mass is identified. The aorta is normal in caliber. There is no significant free fluid or adenopathy. There is no nephrolithiasis. There is no hydronephrosis. Mild vascular calcification is identified. PELVIS: The appendix is not identified. There are scattered colonic diverticula. There are small inguinal hernias containing fat. There is a small umbilical hernia containing fat. The urinary bladder is unremarkable. There is no significant free fluid or adenopathy. IMPRESSION: No acute intra-abdominal process. Reviewed, Interpreted and Dictated by Naveen Wylie III, MD Transcribed by Nelly Boykin Authenticated and [facility]
== END 2024-02-23 23:59 | disposition home or self-care (01) ==
PROVIDERS: PCP Family Medicine; Visit Provider Thoracic Surgery (Cardiothoracic Vascular Surgery)
DX: I34.1 Nonrheumatic mitral (valve) prolapse (principal); D68.9 Coagulation defect, unspecified; R73.03 Prediabetes
CPT/HCPCS: 74176

== ENCOUNTER 2024-02-24 07:34 | Outpatient (CLI) | payer MEDICARE, BC, SELFPAY ==
[2024-02-24] MEDS: ALBUTEROL 0.083% 2.5 MG/3 ML NEB IH (08:15)
== END 2024-02-24 23:59 | disposition home or self-care (01) ==
LOC: RT 07:35
PROVIDERS: PCP Family Medicine; Visit Provider Psychiatry & Neurology Sleep Medicine
DX: I34.1 Nonrheumatic mitral (valve) prolapse (principal); R73.03 Prediabetes; D68.9 Coagulation defect, unspecified
CPT/HCPCS: 94060; 94640; 94726; 94729; J7613

== ENCOUNTER 2024-03-14 15:09 | Outpatient (CLI) | payer MEDICARE, BC, SELFPAY ==
--- NOTE | 2024-03-14 15:15 | XR_ITS ---
FINAL REPORT TECHNIQUE: Chest PA & Lateral CLINICAL HISTORY: Acute cough, recent open heart surgery. FINDINGS: 2 views of the chest were performed. There is mild cardiomegaly. Sternotomy wires are noted. There is a small to moderate right pleural effusion with overlying atelectasis. IMPRESSION: Small to moderate pleural effusion with overlying atelectasis. Reviewed, Interpreted and Dictated by Tim López MD Transcribed by Bisi Reynolds Authenticated and [facility]
== END 2024-03-14 23:59 | disposition home or self-care (01) ==
LOC: RAD 15:11
PROVIDERS: PCP Family Medicine; Visit Provider Family Medicine
DX: R05.1 Acute cough (principal)
CPT/HCPCS: 71046

== ENCOUNTER 2024-04-02 10:50 | Outpatient (CLI) | payer MEDICARE, BC, SELFPAY ==
--- NOTE | 2024-04-02 10:51 | US_ITS ---
FINAL REPORT TECHNIQUE: Real-time grayscale and color ultrasound of the soft tissues of the neck was performed. CLINICAL HISTORY: left sided parotid gland swelling COMPARISON: None FINDINGS: Limited sonographic images were obtained of the soft tissues of the bilateral neck at the area of interest. On the right is a 7 mm anechoic parotid cyst which appears to be benign. There is a 1.3 cm parotid node on the left with preserved fatty hilum which also appears benign. No suspicious mass identified. IMPRESSION: Benign appearing parotid node on the left. Benign-appearing parotid cyst on the right. Reviewed, Interpreted and Dictated by Tim López MD Transcribed by Bridget Baker Authenticated and . [facility]
== END 2024-04-02 23:59 | disposition home or self-care (01) ==
LOC: RAD 10:51
PROVIDERS: PCP Family Medicine; Visit Provider Nurse Practitioner
DX: R60.0 Localized edema (principal)
CPT/HCPCS: 76536

== ENCOUNTER 2024-04-12 12:52 | Outpatient (RCR) | payer MEDICARE, BC, SELFPAY | END 2024-04-12 23:59 | disposition home or self-care (01) | LOC: PT 12:52 | PROVIDERS: Visit Provider Thoracic Surgery (Cardiothoracic Vascular Surgery) | DX: I25.10 Atherosclerotic heart disease of native coronary artery without angina pectoris (principal); Z95.2 Presence of prosthetic heart valve | CPT/HCPCS: 93798 ==

== ENCOUNTER 2024-04-23 09:57 | Outpatient (CLI) | payer MEDICARE, BC, SELFPAY ==
--- NOTE | 2024-04-23 10:02 | CA_ITS ---
APPROVED REPORT EXAM: Comprehensive 2D, Doppler, and color-flow Echocardiogram Oenologist: Valery Herron RT(R) Ht: 5 ft 9 in Wt: 190lbs BSA: 2.02 BP: 135/72 mmHg Indications: MR repair 02/2024, reassess MV, murmur, CHOW, hyperlipidemia. 2D Dimensions Aortic Root 2.13 cm M: 3.1 - 3.7 LVEF (Gibson's) 50.50 % M: 52 - 72 Left Atrium 4.92 cm M: 3.0 - 4.0 LV Volume 115.50 mL M: 62 - 150 LV Volume Index 57.2 mL/m2 M: 34 - 74 LA Volume 95.00 mL LA Volume Index 47.03 mL/m2 (M/F) 16-34 EF AP4 50.80 % EF AP2 47.8 % EF BP 50.5 % GL Strain -15.3 % M-Mode Dimensions RVDd 2.97 cm (0.9-2.6) LVDd 4.70 cm (3.5-5.7) Ao Diam 3.27 cm (2.0-3.7) LVDs 3.53 cm (3.5-5.7) IVSd 1.20 cm (0.6-1.1) PWd 1.08 cm (0.6-1.1) EF (Teich) 49.30% FS 24.90% EDV (Teich) 102.40 mL ESV (Teich) 51.90 mL LV Diastology E Decel Time 278 (160-240 msec) E/A Ratio 0.6 MED E' 5.2 (>= 7 cm/sec) E'/MED E' Ratio 19.60 (<= 14) LAT E' 7.9 (>= 10 cm/sec) E/LAT E' Ratio 12.90 (<= 14) Aortic Valve LVOT Max 101.0 (70-110 cm/s) LVOT VTI 19.57 cm AoV Peak Toby. 127.0 (50-130 cm/s) AO Mean GR. 3.20 (<5 mmHg) AO VTI 23.8 (18-25 cm) Mitral Valve MV E Max Toby. 102.0 (40-130 cm/s) MV A Velocity 165.0 (40-130 cm/s) E/A Ratio 0.62 MV Decel. Time 278 (160-240 ms) MV PHT 89.0 ms Left Ventricle The left ventricle is normal size. The left ventricular systolic function is normal. The left ventricular ejection fraction is within the normal range. There is increased LV wall thickness. There is normal LV segmental wall motion. Diastolic function is indeterminate. LVEF is 55%. Right Ventricle The right ventricle is moderately dilated. Right ventricle is mildly hypokinetic. Atria The left atrium is severely dilated. Right atrium is mildly dilated. There is no Doppler evidence of interatrial shunt. Aortic Valve Aortic valve is mildly thickened. There is no aortic valvular stenosis. Mild aortic regurgitation. Mitral Valve s/p MV repair with annuloplasty ring. The mitral valve leaflets are mildly thickened. Mild mitral stenosis. Mean MV gradient 7 mmHg (HR 73 bpm). Peak E velocity 110 cm/s. PHT is 98 ms. Trace mitral regurgitation. Tricuspid Valve The tricuspid valve leaflets are thin and pliable. Trace tricuspid regurgitation. There is insufficient TR jet to estimate RVSP. Pulmonic Valve The pulmonary valve is normal in structure. Trace pulmonic regurgitation. Great Vessels The aortic root is normal in size. The ascending aorta is not well-visualized. IVC is normal in size and collapses >50% with inspiration. Pericardium There is no pericardial effusion. Other Information Study Quality: Fair Conclusion Normal LV systolic function. Moderate RV dilation with mild reduction in RV function. s/p MV repair with annuloplasty ring (mean MV gradient 7 mmHg (HR 73 bpm). Peak E velocity 110 cm/s. PHT is 98 ms). Mild AI. Compared to prior study from 01/2024, the MV has been repaired with annuloplasty ring placement. Severe MR is no longer present. Mean MV gradient slightly elevated at 7 mmHg (HR 73 bpm). Clinical correlation and serial TTE evaluations are recommended. Electronically signed by : Maki Burrell MD 04/25/2024 00:32:45
== END 2024-04-23 23:59 | disposition home or self-care (01) ==
LOC: RT 09:58
PROVIDERS: PCP Family Medicine; Visit Provider Thoracic Surgery (Cardiothoracic Vascular Surgery)
DX: I34.1 Nonrheumatic mitral (valve) prolapse (principal)
CPT/HCPCS: 93306

== ENCOUNTER 2024-07-24 13:24 | Outpatient (POV) | payer MEDICARE, BC, SELFPAY ==
[2024-07-24 13:56] VITALS: BP 119/77; PULSE 84; RESP 16; TEMP 36.5; O2SAT 96; BMI 26.6
[2024-07-24 13:57] LABS: Blood Urea Nitrogen 18 mg/dl (9-20); Estimated Glomerular Filt Rate 83 ml/min (>60); GFR (African American) 101 ML/MIN (>60)
--- NOTE | 2024-07-24 14:37 | A.OFFVIS_ITS ---
HPI Data of Consult Patient: known to practice within the last 3 years Consult date: 07/24/24 Requesting Physician: Elizabeth Bustillo APRN Primary Care Provider: Jose Rodriguez MD Consult Narrative Reason for consult: Low back pain, right hip pain, right upper thigh pain History of present illness: Mr. Awan is a 69 year old male who presents today as a new patient. He is a referral from Dr. Rodriguez's office. Today he rates his pain a 8 out of 10. Patient does state the pain is all in his low back and right hip/buttocks area that does go into his upper thigh. Patient does make mention that this is been going on since around the time of his open heart surgery in February of this year. Patient states that he is unsure what exactly initially started those symptoms however that it is progressed since and the symptoms are constant and are interfering with his ability to perform activities of daily living such as cooking and cleaning or even sleeping. He states that he is having to change positions frequently and that increased activity just aggravates his overall symptoms. He states that he is not getting good sleep due to the worsening pain. Patient has tried [id number]-[id number] medications along with muscle relaxers, heat and ice and topicals with minimal relief. Patient has been through recent rehab with no additional improvements. He is also continued at home stretching exercise for longer than 12 weeks with no additional changes that was physician guided. Patient states he was a prior patient of ours back in 2020 and did have injection therapy that significantly helped with the last procedure being a lumbar ablation. He does state that that procedure significantly cause pain but did overall help. He states he is interested in additional injection therapy due to this worsening pain. His Damon has been reviewed and is appropriate. CC: Elizabeth Bustillo APRN [facility] Disclaimer: The information contained in this section may have been updated after the patient was seen, as this information can be updated by other users. Medical History PAF (paroxysmal atrial fibrillation) Swelling of left parotid gland Atypical angina Carotid artery stenosis Ascending aorta dilation Severe mitral regurgitation Abnormal findings on diagnostic imaging of heart and coronary circulation Abnormal electrocardiogram [ECG] [EKG] Hyperlipidemia Fatigue Mitral regurgitation Abdominal bruit Aortic root dilatation Dyspnea on exertion Carotid bruit Cardiac murmur History of abdominal hernia Mild mitral valve prolapse BLANCA (obstructive sleep apnea) Surgical History Status post mitral valve annuloplasty S/P left atrial appendage ligation History of adenoidectomy History of open heart surgery Hx of thumb surgery History of colonoscopy History of tonsillectomy History of inguinal hernia repair History of repair of anterior cruciate ligament of left knee Family History Other Aneurysm Coronary artery disease Diabetes Hyperlipidemia Hypertension Social History Smoking Status: Never smoker alcohol intake: never substance use type: denies use current occupational status: other Travel in the last 8 weeks: None household members: spouse housing: house lives independently: No marital status: education level: college service: No current occupational exposures/hazards: Yes caffeine: Yes do you feel safe at home: Yes victim of physical abuse: No victim of emotional abuse: No victim of sexual abuse: No would you like helpful sources: No Have you lived/traveled outside US in past 30 days?: No Contact w/someone who lives/traveled outside US past 30 days?: No Exposure to someone with infectious disease in past 14 days?: No Do you have a fever (greater than 100.4 F or 38 C)?: No Have you tested positive for COVID-19: No Exposed to someone with COVID-19 in past 14 days?: No Do you have a sore throat?: No Do you have a cough?: No Do you have any weakness?: No Do you have any diarrhea?: No Are you experiencing any unusual bleeding?: No Do you have any muscle aches/pain?: No Do you have any abdominal pain?: No Are you experiencing loss of taste or smell?: No Review of Systems Review of Systems Review of systems:: pertinent systems reviewed and negative unless documented below Review of systems (narrative): Review of Systems: General: No recent weight changes, no fever, no sleep disturbances Respiratory: No cough, no shortness of air, no recurring pulmonary infections Cardiovascular/peripheral vascular: No chest pain, no palpitations, no edema, no shortness of breath Gastrointestinal: No new onset incontinence, normal bowel movements reported Genitourinary: No new onset incontinence Musculoskeletal: Low back pain, right hip pain, right buttocks pain, right upper thigh/groin pain Psychiatric: [Normal mood/affect] Neurological: [Denies weakness in extremities], [denies balance issues] Meds Home Medications and Allergies Home Medications ?Medication ?Instructions ?Recorded ?Confirmed ?Type aspirin 81 mg tablet,delayed 81 mg PO DAILY preventative 12/22/20 07/24/24 Histo ry release coenzyme Q10 400 mg capsule 400 mg PO DAILY Supplement 08/12/21 07/24/24 History fexofenadine 180 mg tablet 180 mg PO DAILY . 08/12/21 07/24/24 History montelukast 10 mg tablet 10 mg PO DAILY allergies 08/12/21 07/24/24 History rosuvastatin 20 mg tablet 20 mg PO DAILY Cholesterol 08/12/21 07/24/24 History albuterol sulfate 90 mcg/actuation 1 puff inhalation ONCE 09/01/23 07/24/24 History aerosol inhaler fluticasone furoate 100 1 inh inhalation DAILY 01/06/24 07/24/24 History mcg-vilanterol 25 mcg/dose inhalation powder (Breo Ellipta) metoprolol tartrate 25 mg tablet 12.5 mg PO BID 04/02/24 07/24/24 History New Prescriptions to Start Prescriptions: Allergies Allergy/AdvReac Type Severity Reaction Status Date / Time morphine Allergy Mild rash Verified 06/07/24 14:17 codeine, Allergy Mild rash Uncoded 06/07/24 14:17 Objective Vital signs: Temp Pulse Resp BP Pulse Ox O2 Del Method 97.7 F 84 16 119/77 96 Room Air 07/24/24 13:56 07/24/24 13:56 07/24/24 13:56 07/24/24 13:56 07/24/24 13:56 07/24/24 13:56 Narrative: Physical Exam: General: Alert and oriented x3, no acute distress, pleasant and cooperative Lungs: Respirations even and unlabored, symmetrical chest expansion Eyes: PERRL Musculoskeletal: Flexion and extension of lumbar [spine] somewhat guarded secondary to pain, [antalgic gait noted] point tenderness along right SI with positive right Khushbu's, Tyler's, Gaenslen's, compression and distraction exam Neurological: Speech clear, no gross sensory deficit Assessment and Plan *Assessment and plan (1) Sacroiliitis: Status: Acute Category: Medical Code(s): M46.1 - Sacroiliitis, not elsewhere classified Plan Patient is experiencing significant pain throughout his low back and right hip with limited range of motion. Patient did have extreme point tenderness along his right SI with a positive right Khushbu's, Tyler's, Gaenslen's, compression and distraction exam during today's visit. Patient has been experiencing this worsening pain since February. Patient has tried and failed conservative measures including oral medication, heat and ice, topicals, at home stretching exercise for longer than 12 weeks with no additional improvement. Patient has also undergone physical therapy rehab during this timeframe with no additional changes. I will order the patient a compounded cream and also send in a prescription of baclofen 10 mg at bedtime with a 14-day supply. Patient will be scheduled for a right SI injection under fluoroscopy. Patient has been instructed to contact the clinic with any concerns before the next appointment. Dr. Luna has reviewed this note and agrees with this plan of care. This note was dictated using voice recognition software and make contain errors or omissions. All injections are used with Lidocaine, Bupivacaine and Depo Medrol. Occasionally urine drug screen is needed to verify patient's compliance with our office pain contract. This is ordered based off specific treatments related to chronic pain with the potential to abuse certain medications.
== END 2024-07-24 23:59 | disposition home or self-care (01) ==
PROVIDERS: PCP Family Medicine; Visit Provider Nurse Practitioner Family
DX: M46.1 Sacroiliitis, not elsewhere classified (principal); Z73.89 Other problems related to life management difficulty; I65.23 Occlusion and stenosis of bilateral carotid arteries; R53.83 Other fatigue
CPT/HCPCS: 36415; 82565; 84520; 99202; G0463

== ENCOUNTER 2024-07-26 07:48 | Outpatient (CLI) | payer MEDICARE, BC, SELFPAY ==
--- NOTE | 2024-07-26 07:49 | CT_ITS ---
FINAL REPORT TECHNIQUE: The patient was injected with IV contrast. Axial images were obtained through the chest in a PE protocol. 3-D reconstruction images were also performed. Individualized dose reduction techniques using automated exposure control or adjustment of the MA and/or KV according to patient's size were employed. CLINICAL HISTORY: aa COMPARISON: 02/09/2024 FINDINGS: Mediastinal vasculature is adequately opacified. No pulmonary artery filling defects are identified to suggest PE. There is no aortic dissection. The current examination demonstrates an ascending aorta measuring 3.5 cm in diameter, and a descending thoracic aorta measuring 3.0 cm in diameter. There is no axillary adenopathy. There is no hilar or mediastinal adenopathy. The heart size is normal. There is no pericardial or pleural effusion. Limited images of the upper abdomen are unremarkable. No suspicious infiltrate or nodule is identified. IMPRESSION: The current examination demonstrates an ascending aorta measuring 3.5 cm in diameter, and a descending thoracic aorta measuring 3.0 cm in diameter. Reviewed, Interpreted and Dictated by Tim López MD Transcribed by Inocencia Loja Authenticated and [facility]
[2024-07-26] MEDS: 0.9 % SODIUM CHLORIDE 50 ML VIAL IV (08:25)
[2024-07-26] MEDS: IOPAMIDOL-370 (76%);100ML BOTTLE 80 ML IV (08:25)
[2024-07-26] MEDS: SODIUM CHLORIDE 0.9% 10ML SYR (RAD ONLY) 10 ML IV (08:25)
== END 2024-07-26 23:59 | disposition home or self-care (01) ==
LOC: RAD 07:49
PROVIDERS: PCP Family Medicine; Visit Provider Internal Medicine
DX: I20.89 Other forms of angina pectoris (principal); I48.0 Paroxysmal atrial fibrillation; Z98.890 Other specified postprocedural states; I65.23 Occlusion and stenosis of bilateral carotid arteries; I77.810 Thoracic aortic ectasia
CPT/HCPCS: 71275; Q9967

== ENCOUNTER 2024-07-31 07:48 | Day surgery (SDC) | payer MEDICARE, BC, SELFPAY ==
[2024-07-31 08:22] VITALS: BP 129/91; PULSE 70; RESP 16; TEMP 36.4; O2SAT 98; BMI 26.6
[2024-07-31] MEDS: LIDOCAINE 1% 5ML PF VIAL 5 ML (08:49)
[2024-07-31] MEDS: BUPIVACAINE 0.25% 10ML INJ 25 MG IJ (08:49)
[2024-07-31] MEDS: methylPREDNISolone ACETATE 80MG/ML VIAL 80 MG (08:49)
[2024-07-31 08:52] VITALS: BP 139/70; PULSE 73; RESP 18; O2SAT 97
[2024-07-31 08:56] VITALS: BP 139/70; PULSE 73; RESP 18; O2SAT 97
[2024-07-31 09:03] VITALS: BP 143/80; PULSE 67; RESP 18; O2SAT 96
--- NOTE | 2024-07-31 10:49 | EXP.PAIN.PRO ---
Procedure Date: 07/31/24 Time: 08:40 Anesthesiologist:: Jhon De CRNA Complications:: None Pre-procedure Diagnosis:: Right sacroiliitis Post-procedure Diagnosis:: Same Indications for Procedure:: Patient is a very pleasant 69-year-old male who comes our clinic today for right sacroiliac joint injection of cortisone and local anesthetic. Patient describes right low lumbar back pain. Right posterior hip pain. Difficulty transitioning from sitting to standing. Difficulty with sitting. Difficulty with ambulation due to right posterior hip pain. He rates his pain 8/10. Procedure Details:: Procedure: Right sacroliliac joint injection under fluoroscopy Informed consent was obtained and the risk and benefits of the procedure were explained to the patient.~ The patient was taken to the procedure room and noninvasive monitors were placed including noninvasive blood pressure cuff and pulse oximeter.~ The patient was placed prone on the procedure table.~ The~ right hip was cleansed using Betadine as a cleansing solution.~ C-arm fluorosocpy was used to view the right SI joint.~ The skin and subcutaneous tissues were anesthetized using Lidocaine 1.5% and a 25-gauge needle.~ After this, a 22-gauge spinal needle was inserted under fluoroscopic guidance into the inferior aspect of the right SI joint.~ Omnipaque dye was injected and a good spread was seen throughout the joint.~ After this, approximately 5 mL of bupivacaine 0.25% and Depo-Medrol 40 mg was incrementally injected into the sacroiliac joint.~ The patient tolerated the procedure well with no complications.~ The patient was observed in the Pain Clinic, then discharged home neurologically intact.~ Plan and Disposition:: Patient was discharged without incident.
== END 2024-07-31 09:02 | disposition home or self-care (01) ==
LOC: SC.PAINP 07:50
PROVIDERS: PCP Family Medicine; Visit Provider Nurse Anesthetist, Certified Registered
DX: M46.1 Sacroiliitis, not elsewhere classified (principal)
CPT/HCPCS: 27096; G0260; J1010

== ENCOUNTER 2024-08-13 10:00 | Outpatient (POV) | payer MEDICARE, BC, SELFPAY ==
--- NOTE | 2024-08-13 10:40 | EXP.PAIN.SOA ---
[facility] Disclaimer: The information contained in this section may have been updated after the patient was seen, as this information can be updated by other users. Medical History PAF (paroxysmal atrial fibrillation) Swelling of left parotid gland Atypical angina Carotid artery stenosis Ascending aorta dilation Severe mitral regurgitation Abnormal findings on diagnostic imaging of heart and coronary circulation Abnormal electrocardiogram [ECG] [EKG] Hyperlipidemia Fatigue Mitral regurgitation Abdominal bruit Aortic root dilatation Dyspnea on exertion Carotid bruit Cardiac murmur History of abdominal hernia Mild mitral valve prolapse BLANCA (obstructive sleep apnea) Surgical History Status post mitral valve annuloplasty S/P left atrial appendage ligation History of adenoidectomy History of open heart surgery Hx of thumb surgery History of colonoscopy History of tonsillectomy History of inguinal hernia repair History of repair of anterior cruciate ligament of left knee Family History Other Aneurysm Coronary artery disease Diabetes Hyperlipidemia Hypertension Social History Smoking Status: Never smoker alcohol intake: never substance use type: denies use current occupational status: other Travel in the last 8 weeks: None household members: spouse housing: house lives independently: No marital status: education level: college service: No current occupational exposures/hazards: Yes caffeine: Yes do you feel safe at home: Yes victim of physical abuse: No victim of emotional abuse: No victim of sexual abuse: No would you like helpful sources: No PM Subjective & Objective Subjective Subjective:: Patient is a pleasant 69-year-old male who presents today for follow-up of his right SI injection on July 31, 2024. Today he rates his pain a 2 out of 10. Patient states he has had at least 80% improvement following this injection and feels like it still helping. He states the pain is definitely not as severe and that not as constant. He does state that he notices it still on a daily basis but he can do things now. He states he has been able to sleep and is actually gotten about 8 hours sleep on average the last week. He states that the compounded cream does seem to help along with the baclofen 10 mg at bedtime. He states that is doing well. He denies any side effects. His Damon has been reviewed and is appropriate. Review of Systems: General: No recent weight changes, no fever, no sleep disturbances Respiratory: No cough, no shortness of air, no recurring pulmonary infections Cardiovascular/peripheral vascular: No chest pain, no palpitations, no edema, no shortness of breath Gastrointestinal: No new onset incontinence, normal bowel movements reported Genitourinary: No new onset incontinence Musculoskeletal: Low back pain Psychiatric: [Normal mood/affect] Neurological: [Denies weakness in extremities], [denies balance issues] Pain at rest (0-10 scale): 2 Objective Objective:: Physical Exam: General: Alert and oriented x3, no acute distress, pleasant and cooperative Lungs: Respirations even and unlabored, symmetrical chest expansion Eyes: PERRL Musculoskeletal: Flexion and extension of lumbar [spine] somewhat guarded secondary to pain, [antalgic gait noted] Neurological: Speech clear, no gross sensory deficit Has patient had previous pain injection?: Yes Percent improvement in pain since last injection: 80% Conservative treatment options previously tried: Home exercise plan Length of treatment: Longer than 12 weeks Meds Home Medications and Allergies Home Medications ?Medication ?Instructions ?Recorded ?Confirmed ?Type aspirin 81 mg tablet,delayed 81 mg PO DAILY preventative 12/22/20 07/31/24 History release coenzyme Q10 400 mg capsule 400 mg PO DAILY Supplement 08/12/21 07/31/24 History fexofenadine 180 mg tablet 180 mg PO DAILY . 08/12/21 07/31/24 History montelukast 10 mg tablet 10 mg PO DAILY allergies 08/12/21 07/31/24 History rosuvastatin 20 mg tablet 20 mg PO DAILY Cholesterol 08/12/21 07/31/24 History albuterol sulfate 90 mcg/actuation 1 puff inhalation ONCE 09/01/23 07/31/24 History aerosol inhaler fluticasone furoate 100 1 inh inhalation DAILY 01/06/24 07/31/24 History mcg-vilanterol 25 mcg/dose inhalation powder (Breo Ellipta) metoprolol tartrate 25 mg tablet 12.5 mg PO BID 04/02/24 07/31/24 History baclofen 10 mg tablet 10 mg PO HS #14 tabs 07/24/24 07/31/24 Rx New Prescriptions to Start Prescriptions: Allergies Allergy/AdvReac Type Severity Reaction Status Date / Time morphine Allergy Mild rash Verified 06/07/24 14:17 codeine Allergy Vomiting Verified 07/31/24 08:24 Assessment and Plan *Assessment and plan (1) Sacroiliitis: Status: Acute Category: Medical Code(s): M46.1 - Sacroiliitis, not elsewhere classified Plan Patient has had significant improvement following his SI injection and does not require any additional injection therapy at this time. Patient ordered physical therapy for low back and leg symptoms due to him still having abnormal gait. I will also refill his baclofen. Patient will return to clinic in 6 weeks for reevaluation of symptoms and plan of care. Patient has been instructed to contact the clinic with any concerns before the next appointment. Dr. Luna has reviewed this note and agrees with this plan of care. This note was dictated using voice recognition software and make contain errors or omissions. All injections are used with Lidocaine, Bupivacaine and Depo Medrol. Occasionally urine drug screen is needed to verify patient's compliance with our office pain contract. This is ordered based off specific treatments related to chronic pain with the potential to abuse certain medications.
[2024-08-13 12:15] VITALS: BP 130/80; PULSE 76; RESP 18; O2SAT 95; BMI 26.6
== END 2024-08-13 23:59 | disposition home or self-care (01) ==
PROVIDERS: PCP Family Medicine; Visit Provider Nurse Practitioner Family
DX: M46.1 Sacroiliitis, not elsewhere classified (principal)
CPT/HCPCS: 99212; G0463

== ENCOUNTER 2024-08-16 12:41 | Outpatient (RCR) | payer MEDICARE, BC, SELFPAY ==
--- NOTE | 2024-08-16 14:43 | HMH.PTOPEV ---
PT Outpatient Evaluation Rehab PT Outpatient Evaluation Start: 08/16/24 13:15 Freq: Status: Active Protocol: Document 08/16/24 14:02 JAYLA (Rec: 08/16/24 14:42 JAYLA [id number]) E-signed By Reid Moreno, PT Outpatient Therapy Subjective History Subjective History Patient is a 69 year old male presenting to outpatient PT with reports of chronic LBP with RLE radicular symptoms. Most recent exacerbation started approx 3 months ago. Symptoms of insidious onset. SI special tests indicate R anterior rotation of the innominant. Comorbidities include hx of open heart surgery, R ACL repair and B inguinal hernia Sx. Relief noted with LS mech traction during previous episode of PT, as well as recent R SIJ injection. New diagnosis of cancer in past 12 No months? Chief Complaint Pain,Stiff,Paresthesia Symptom Type Throb Symptoms Relieved By Rest/Positioning,Heat,Ice, Prescription Meds Symptoms Aggravated By Sitting,Standing,Bending/ Stooping,Physical Activity, Lifting Prior Functional Limitations Standing,Walking Current Functional Limitations Lifting,Housework,Standing, Walking,Bending/Stooping Symptom Description Constant but Variable Level of pain today (0-10) 3 Pain scale - at its best (0-10) 2 Pain scale - at its worst (0-10) 9 Lumbopelvic Eval Posture Thoracic Spine Posture Standing Position Increased Kyphosis Lumbar Spine Posture Standing Position Decreased Lordosis Assistive device Assistive Devices None / NA Palapation tenderness right buttock tenderness Yes Lumbar/Sacral Palpation Findings Tenderness Lumbar/Sacral Palpation Overall Comment R SIJ 3/4 Accessory Movement S1 bilateral Range of Motion Lumbar Spine Active Flexion Range of 68 Motion (degrees) Lumbar Spine Active Extension Range of 14 Motion (degrees) Left Lumbar Spine Lateral Flexion Active 22 Range of Motion (degrees) Right Lumbar Spine Lateral Flexion 16 Active Range of Motion (degrees) Lumbar Spine ROM Limitations Soft Tissue Tightness,Bony Restriction Manual Muscle Test Right Knee Extension Strength Grade 4- Good- Knee Flexion Strength Grade 4 Good Hip Flexion Strength Grade 3+ Fair+ Extensor Hallucis Longus Strength Grade 4 Good Ankle Dorsiflexion Strength Grade 4- Good- Gastronemius/Soleus Strength Grade 5 Normal Altered Sensation LE Dermatome Level L4,L5 Comment throb Special Tests Hip Jhon (AMOR) Test Positive Left,Positive Right Hip Estiven Test Positive Left,Positive Right Hip Piriformis Test Positive Left,Positive Right Sacroiliac Joint Compression Test Negative Left,Negative Right Sacroiliac Joint Distraction Test Negative Left,Negative Right Lumbar Long [place] Distraction Test/Manual Positive Traction Oswestry Index Section 1 Pain Intensity The pain comes and goes and is moderate Section 2 Personal Care (Washing,Dresing) my way of washing or dressing even though it causes some pain Section 3 Lifting I can lift heavy weights, but it gives me extra pain Section 4 Walking I cannot walk more than one mile wihtout increasing pain Section 5 Sitting Pain prevents me from sitting for more than one hour Section 6 Standing I cannot stand more than 1 hour without increasing pain Section 7 Sleeping I get pain in bed, but it does not prevent me from sleeping well Section 8 Social Life Pain has restricted my social life and I do not go out often Section 9 Traveling I get extra pain while traveling, but it does not compel me to seek al Section 10 Changing Degreee of Pain My pain is neither getting better or worse Score and Risk Level Oswestry Sc 19 Oswestry Risk Level Moderate Disability Outpatient Therapy Assessment Prognosis Rehab Potential Good Clinical Impression Consistent with Diagnosis Yes Short Term Goals Number of Weeks 2 Decrease Subjective C/O Pain Yes: 5/10 at worst Patient to be Ind w/ HEP Yes Halfway Goals Number of Weeks 4-6 Decreased Palpation Tenderness Yes: 1/4 Increase Range of Motion Yes: WNL Increase Strength Yes: BLE 5/5 Increase Ability to Walk Yes: 30 min without difficulty Increase Ability to Stand Yes Increase Ability to Sit Yes Improve Ability For Household Care Yes Improve Oswestry Score Yes: mild disability Decrease Subjective C/O Pain Yes: 2/10 Outpatient Therapy Plan of Care Treatment Plan May Include Therapeutic Exercise Including Home Yes Exercise Program Manual Therapy Techniques Yes Neuromuscular Re-education Yes Therapeutic Activities to Return to Yes Previous Functional/Work Level Gait Training Yes ADL/Self Care Education Yes Mechanical Traction Yes Dry Needling Yes Thermal Modalities Yes Electrical Stimulation Yes Ultrasound/Phonophoresis Yes Iontophoresis Yes Orthotics/Bracing/Splinting Yes Massage Yes Eval/Re-Eval Yes Frequency Times per week 2-3 Duration Number of Weeks 4-6 Addendums This patient is a candidate for social No or vocational rehab? Patient/Guardian verbally acknowledges Yes understanding of treatment program and consents to further treatment? Patient/Guardian verbally acknowledges Yes understanding of diagnosis, prognosis and goals for treatment? Eval Complexity PT Charges 31912 - Moderate Complexity Shoulder/Elbow Eval Shoulder Objective Measurements Elbow Objective Measurements PHYSICIAN CERTIFICATION: I certify the specified therapy services for Nabor Awan are required, authorized, and reviewed every 30 days.
== END 2024-08-16 23:59 | disposition home or self-care (01) ==
LOC: PT 12:41
PROVIDERS: PCP Family Medicine; Visit Provider Nurse Practitioner Family
DX: M46.1 Sacroiliitis, not elsewhere classified (principal); M54.16 Radiculopathy, lumbar region; M54.50 Low back pain, unspecified
CPT/HCPCS: 97110; 97163

== ENCOUNTER 2024-08-30 09:00 | Outpatient (RCR) | payer MEDICARE, BC, SELFPAY | END 2024-08-30 23:59 | disposition home or self-care (01) | LOC: PT 09:00 | PROVIDERS: PCP Family Medicine; Visit Provider Nurse Practitioner Family | DX: M46.1 Sacroiliitis, not elsewhere classified (principal); M54.16 Radiculopathy, lumbar region; M54.50 Low back pain, unspecified | CPT/HCPCS: 97110; 97530 ==

== ENCOUNTER 2024-09-24 09:16 | Outpatient (POV) | payer MEDICARE, BC, SELFPAY ==
--- NOTE | 2024-09-24 09:38 | A.OFFVIS_ITS ---
[facility] Disclaimer: The information contained in this section may have been updated after the patient was seen, as this information can be updated by other users. Medical History PAF (paroxysmal atrial fibrillation) Swelling of left parotid gland Atypical angina Carotid artery stenosis Ascending aorta dilation Severe mitral regurgitation Abnormal findings on diagnostic imaging of heart and coronary circulation Abnormal electrocardiogram [ECG] [EKG] Hyperlipidemia Fatigue Mitral regurgitation Abdominal bruit Aortic root dilatation Dyspnea on exertion Carotid bruit Cardiac murmur History of abdominal hernia Mild mitral valve prolapse BLANCA (obstructive sleep apnea) Surgical History Status post mitral valve annuloplasty S/P left atrial appendage ligation History of adenoidectomy History of open heart surgery Hx of thumb surgery History of colonoscopy History of tonsillectomy History of inguinal hernia repair History of repair of anterior cruciate ligament of left knee Family History Other Aneurysm Coronary artery disease Diabetes Hyperlipidemia Hypertension Social History Smoking Status: Never smoker alcohol intake: never substance use type: denies use current occupational status: other Travel in the last 8 weeks: None household members: spouse housing: house lives independently: No marital status: education level: college service: No current occupational exposures/hazards: Yes caffeine: Yes do you feel safe at home: Yes victim of physical abuse: No victim of emotional abuse: No victim of sexual abuse: No would you like helpful sources: No Have you lived/traveled outside [place] in past 30 days?: No Contact w/someone who lives/traveled outside US past 30 days?: No Exposure to someone with infectious disease in past 14 days?: No Do you have a fever (greater than 100.4 F or 38 C)?: No Have you tested positive for COVID-19: No Exposed to someone with COVID-19 in past 14 days?: No Do you have a sore throat?: No Do you have a cough?: No Do you have any weakness?: No Do you have any diarrhea?: No Are you experiencing any unusual bleeding?: No Do you have any muscle aches/pain?: No Do you have any abdominal pain?: No Are you experiencing loss of taste or smell?: No PM Subjective & Objective Subjective Subjective:: Patient is a pleasant 69-year-old male who presents today for worsening pain. He denies any new trauma or injury. He does rate his pain a 5 out of 10. He states that he does feel like he is pain has started to increase from our last appointment. Patient does state that it does feel like it is going more into his right hip and describes it as a aching, throbbing sensation that does interfere with his ability perform activities of daily living such as cooking and cleaning. Patient does state that it is definitely not as severe as when he initially started to come to's. He does state that he is just noticing more trouble with certain positions. 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 He states he is also still having a little bit more of the same pain there in his low back that we treated with the last SI injection. Patient had that in July with 80% relief and states that it is just now starting to worsen. Patient was prescribed compounded cream and baclofen 10 mg at bedtime. He states that he has not had to use those medications as it is just now starting to increase. He is interested in additional injections. His Damon has been reviewed and is appropriate. Review of Systems: General: No recent weight changes, no fever, no sleep disturbances Respiratory: No cough, no shortness of air, no recurring pulmonary infections Cardiovascular/peripheral vascular: No chest pain, no palpitations, no edema, no shortness of breath Gastrointestinal: No new onset incontinence, normal bowel movements reported Genitourinary: No new onset incontinence Musculoskeletal: Low back pain, right hip pain Psychiatric: [Normal mood/affect] Neurological: [Denies weakness in extremities], [denies balance issues] Pain at rest (0-10 scale): 5 Objective Objective:: Physical Exam: General: Alert and oriented x3, no acute distress, pleasant and cooperative Lungs: Respirations even and unlabored, symmetrical chest expansion Eyes: PERRL Musculoskeletal: Flexion and extension of lumbar [spine] somewhat guarded secondary to pain, [antalgic gait noted] point tenderness along right SI with positive right Khushbu's, Tyler's, Gaenslen's, compression and distraction exam, point tenderness along right greater trochanteric bursa Neurological: Speech clear, no gross sensory deficit Has patient had previous pain injection?: No Conservative treatment options previously tried: Home exercise plan Length of treatment: Longer than 12 weeks Meds Home Medications and Allergies Home Medications ?Medication ?Instructions ?Recorded ?Confirmed ?Type aspirin 81 mg tablet,delayed 81 mg PO DAILY preventative 12/22/20 08/13/24 History release coenzyme Q10 400 mg capsule 400 mg PO DAILY Supplement 08/12/21 08/13/24 History fexofenadine 180 mg tablet 180 mg PO DAILY . 08/12/21 08/13/24 History montelukast 10 mg tablet 10 mg PO DAILY allergies 08/12/21 08/13/24 History rosuvastatin 20 mg tablet 20 mg PO DAILY Cholesterol 08/12/21 08/13/24 History albuterol sulfate 90 mcg/actuation 1 puff inhalation ONCE 09/01/23 08/13/24 History aerosol inhaler fluticasone furoate 100 1 inh inhalation DAILY 01/06/24 08/13/24 History mcg-vilanterol 25 mcg/dose inhalation powder (Breo Ellipta) metoprolol tartrate 25 mg tablet 12.5 mg PO BID 04/02/24 08/13/24 History baclofen 10 mg tablet 10 mg PO HS #30 tabs 08/13/24 Rx New Prescriptions to Start Prescriptions: Allergies Allergy/AdvReac Type Severity Reaction Status Date / Time morphine Allergy Mild rash Verified 06/07/24 14:17 codeine Allergy Vomiting Verified 07/31/24 08:24 Assessment and Plan *Assessment and plan (1) Sacroiliitis: Status: Acute Category: Medical Code(s): M46.1 - Sacroiliitis, not elsewhere classified (2) Greater trochanteric bursitis of right hip: Status: Acute Category: Medical Code(s): M70.61 - Trochanteric bursitis, right hip Plan Patient is experiencing worsening pain along the low back and right hip. They did have limited range of motion of the lumbar spine along with point tenderness along right SI joint and right greater trochanteric bursa and a positive right l Khushbu's, Tyler's, Gaenslen's, compression and distraction exam. I did discuss with the patient that I do believe they would benefit from right SI injection and right greater trochanteric bursa injection. Risk and benefits were discussed with the patient and they would like to proceed forward with this option. Patient has tried and failed conservative therapy including continued at home stretching exercise for longer than 12 weeks. Patient has continued this conservative treatments between injections. He had his last SI injections in July that did provide 80% relief and it worked well up until now. Patient states that the pain is still not as severe as what it was initially from that injection. Patient will be scheduled for right SI and right greater trochanteric bursa injection under fluoroscopy. Patient has been instructed to contact the clinic with any concerns before the next appointment. Dr. Luna has reviewed this note and agrees with this plan of care. This note was dictated using voice recognition software and make contain errors or omissions. All injections are used with Lidocaine or Bupivacaine and Depo Medrol.
[2024-09-24 10:06] VITALS: BP 122/74; PULSE 83; RESP 18; O2SAT 95; BMI 26.6
== END 2024-09-24 23:59 | disposition home or self-care (01) ==
LOC: SC.PAIN 09:18
PROVIDERS: PCP Family Medicine; Visit Provider Nurse Practitioner Family
DX: M46.1 Sacroiliitis, not elsewhere classified (principal); M70.61 Trochanteric bursitis, right hip; Z73.89 Other problems related to life management difficulty
CPT/HCPCS: 99212; G0463

== ENCOUNTER 2024-10-05 11:04 | Outpatient (CLI) | payer MEDICARE, BC, SELFPAY ==
--- NOTE | 2024-10-05 11:08 | XR_ITS ---
FINAL REPORT CLINICAL HISTORY: lbp worsening x3 weeks FINDINGS: No fracture is identified. There is moderate to severe diffuse degenerative disc disease. Moderate facet arthropathy is identified. Alignment is normal. IMPRESSION: Advanced degenerative changes. Reviewed, Interpreted and Dictated by Jose Panda MD Transcribed by Nelly Boykin Authenticated and . [facility]
== END 2024-10-05 23:59 | disposition home or self-care (01) ==
LOC: RAD 11:06
PROVIDERS: PCP Family Medicine; Visit Provider Nurse Practitioner Family
DX: M54.16 Radiculopathy, lumbar region (principal); M54.50 Low back pain, unspecified
CPT/HCPCS: 72100

== ENCOUNTER 2024-10-15 16:55 | Outpatient (CLI) | payer MEDICARE, BC, SELFPAY ==
--- NOTE | 2024-10-15 17:01 | MR_ITS ---
PROCEDURE INFORMATION: Exam: MR Lumbar Spine Without Contrast Exam date and time: 10/15/2024 5:11 PM Age: 69 years old Clinical indication: Low back pain; Additional info: Lbp TECHNIQUE: Imaging protocol: Magnetic resonance imaging of the lumbar spine without contrast. COMPARISON: MR LUMBAR SPINE WO CON 04/22/2021 15:07 FINDINGS: Bones/joints: Modic type degenerative changes of the endplates of L1 and L2. Spinal cord: Visualized cord, conus medullaris and cauda equina are unremarkable without compression. L1-L2: Chronic disc bulge producing mild spinal stenosis. L2-L3: Chronic disc bulge combining with ligamentum flavum and facet hypertrophy to produce mild spinal stenosis, mildly worse than prior study. L3-L4: Disc bulge combining with ligamentum flavum and facet hypertrophy to produce moderate spinal stenosis, moderate right and severe left subarticular recess stenosis, and [id number] bilateral neural foraminal stenosis. L4-L5: Disc bulge combines with ligamentum flavum and facet hypertrophy to produce moderate spinal stenosis and moderate bilateral subarticular recess stenosis. L5-S1: No significant disc bulge or herniation. No severe spinal canal stenosis. No significant neural foraminal narrowing. Soft tissues: Unremarkable. IMPRESSION: No acute findings. Multilevel degenerative changes as detailed above. There is no level of severe spinal stenosis.
== END 2024-10-15 23:59 | disposition home or self-care (01) ==
LOC: RAD 16:57
PROVIDERS: PCP Family Medicine; Visit Provider Nurse Practitioner Family
DX: M54.50 Low back pain, unspecified (principal)
CPT/HCPCS: 72148

== ENCOUNTER 2024-10-18 08:35 | Outpatient (POV) | payer MEDICARE, BC, SELFPAY ==
[2024-10-18 08:49] VITALS: BP 112/76; PULSE 81; RESP 16; O2SAT 97; BMI 26.6
--- NOTE | 2024-10-18 10:51 | EXP.PAIN.SOA ---
[facility] Disclaimer: The information contained in this section may have been updated after the patient was seen, as this information can be updated by other users. Medical History PAF (paroxysmal atrial fibrillation) Swelling of left parotid gland Atypical angina Carotid artery stenosis Ascending aorta dilation Severe mitral regurgitation Abnormal findings on diagnostic imaging of heart and coronary circulation Abnormal electrocardiogram [ECG] [EKG] Hyperlipidemia Fatigue Mitral regurgitation Abdominal bruit Aortic root dilatation Dyspnea on exertion Carotid bruit Cardiac murmur History of abdominal hernia Mild mitral valve prolapse BLANCA (obstructive sleep apnea) Surgical History Status post mitral valve annuloplasty S/P left atrial appendage ligation History of adenoidectomy History of open heart surgery Hx of thumb surgery History of colonoscopy History of tonsillectomy History of inguinal hernia repair History of repair of anterior cruciate ligament of left knee Family History Other Aneurysm Coronary artery disease Diabetes Hyperlipidemia Hypertension Social History Smoking Status: Never smoker alcohol intake: never substance use type: denies use current occupational status: other Travel in the last 8 weeks: None household members: spouse housing: house lives independently: No marital status: education level: college service: No current occupational exposures/hazards: Yes caffeine: Yes do you feel safe at home: Yes victim of physical abuse: No victim of emotional abuse: No victim of sexual abuse: No would you like helpful sources: No Have you lived/traveled outside [place] in past 30 days?: No Contact w/someone who lives/traveled outside US past 30 days?: No Exposure to someone with infectious disease in past 14 days?: No Do you have a fever (greater than 100.4 F or 38 C)?: No Have you tested positive for COVID-19: No Exposed to someone with COVID-19 in past 14 days?: No Do you have a sore throat?: No Do you have a cough?: No Do you have any weakness?: No Do you have any diarrhea?: No Are you experiencing any unusual bleeding?: No Do you have any muscle aches/pain?: No Do you have any abdominal pain?: No Are you experiencing loss of taste or smell?: No PM Subjective & Objective Subjective Subjective:: Patient is a pleasant 69-year-old male who presents today for worsening pain in his low back with also a change of some of his pain symptoms that are radiating down the entire right leg. Patient does still have the same tenderness along his low back at his SI joint and his hip that we saw him for last. Patient is scheduled for a right SI and a right bursa injection coming up on Tuesday. He states that pain is still present and that he cannot sit for prolonged periods or lay on his right side. Patient does state that he does believe that those symptoms are still all present but he has concerns with the worsening symptoms down into his leg. He states he has never had it like this before. Patient did get an updated MRI that we will also review over at today's visit. He has tried and failed conservative therapy including doing the muscle relaxers and steroids. Patient states that the pain is just unbearable. He states it is interfering with every aspect of his life and he cannot do the simplest things such as cooking and cleaning or other ADLs. His Damon has been reviewed and is appropriate. Review of Systems: General: No recent weight changes, no fever, no sleep disturbances Respiratory: No cough, no shortness of air, no recurring pulmonary infections Cardiovascular/peripheral vascular: No chest pain, no palpitations, no edema, no shortness of breath Gastrointestinal: No new onset incontinence, normal bowel movements reported Genitourinary: No new onset incontinence Musculoskeletal: Low back pain, right leg pain Psychiatric: [Normal mood/affect] Neurological: [Denies weakness in extremities], [denies balance issues] Pain at rest (0-10 scale): 10 Objective Objective:: Physical Exam: General: Alert and oriented x3, no acute distress, pleasant and cooperative Lungs: Respirations even and unlabored, symmetrical chest expansion Eyes: PERRL Musculoskeletal: Flexion and extension of lumbar [spine] somewhat guarded secondary to pain, [antalgic gait noted] positive right leg raise with decreased sensation to light touch and decreased reflexes Neurological: Speech clear, no gross sensory deficit Has patient had previous pain injection?: No Conservative treatment options previously tried: Home exercise plan Length of treatment: Longer than 12 weeks Meds Home Medications and Allergies Home Medications ?Medication ?Instructions ?Recorded ?Confirmed ?Type aspirin 81 mg tablet,delayed 81 mg PO DAILY preventative 12/22/20 10/18/24 History release coenzyme Q10 400 mg capsule 400 mg PO DAILY Supplement 08/12/21 10/18/24 History fexofenadine 180 mg tablet 180 mg PO DAILY . 08/12/21 10/18/24 History montelukast 10 mg tablet 10 mg PO DAILY allergies 08/12/21 10/18/24 History rosuvastatin 20 mg tablet 20 mg PO DAILY Cholesterol 08/12/21 10/18/24 History albuterol sulfate 90 mcg/actuation 1 puff inhalation ONCE 09/01/23 10/18/24 History aerosol inhaler fluticasone furoate 100 1 inh inhalation DAILY 01/06/24 10/18/24 History mcg-vilanterol 25 mcg/dose inhalation powder (Breo Ellipta) metoprolol tartrate 25 mg tablet 12.5 mg PO BID 04/02/24 10/18/24 History baclofen 10 mg tablet 10 mg PO HS #30 tabs 08/13/24 10/18/24 Rx prednisone 20 mg tablet 20 mg PO BID #10 tabs 10/05/24 10/18/24 Rx tramadol 50 mg tablet 50 mg PO BID PRN pain #28 tabs 10/18/24 Rx New Prescriptions to Start Prescriptions: tramadol Elizabeth Bustillo Allergies Allergy/AdvReac Type Severity Reaction Status Date / Time morphine Allergy Mild rash Verified 06/07/24 14:17 codeine Allergy Vomiting Verified 07/31/24 08:24 Assessment and Plan *Assessment and plan (1) Spinal stenosis of lumbar region with neurogenic claudication: Status: Acute Category: Medical Code(s): M48.062 - Spinal stenosis, lumbar region with neurogenic claudication (2) Degenerative disc disease: Status: Acute Category: Medical (3) Low back pain: Status: Acute Category: Medical Code(s): M54.50 - Low back pain, unspecified Plan Patient is experiencing worsening pain in his low back with numbness and tingling into her lower extremities. Patient did have limited range of motion of his lumbar spine with a right positive leg raise. I did discuss with patient that I do believe they would benefit from a right transforaminal epidural steroid injection. Risk and benefits were discussed with patient and the patient would like to proceed forward with this plan of care. I did review over his last updated MRI imaging that did show significant ligamentum flavum hypertrophy and narrowing. Patient does have symptoms consistent with spinal stenosis with neurogenic claudication symptoms. I did review with the patient due to these findings and his symptoms that he may be a beneficial candidate of a minimally invasive lumbar decompression procedure. Risk and benefits were discussed with the patient. Patient is interested in this option. Patient is is not on any blood thinners. Patient has tried and failed conservative therapy including continued at home stretching exercise for longer than 12 weeks between injections. Patient was counseled that I will plan on having him do a epidural with epidurogram to evaluate if he is a candidate of the lumbar decompression. Patient agrees with this plan of care. We will schedule the patient for an right transforaminal L3-L4 and L4-L5 with epidurogram under fluoroscopy. I will also send in a 2-week dose of tramadol 50 mg twice daily. Patient has been instructed to contact the clinic with any concerns before the next appointment. Dr. Luna has reviewed this note and agrees with this plan of care. This note was dictated using voice recognition software and make contain errors or omissions. All injections are used with Lidocaine, Bupivacaine and Depo Medrol. Occasionally urine drug screen is needed to verify patient's compliance with our office pain contract. This is ordered based off specific treatments related to chronic pain with the potential to abuse certain medications.
== END 2024-10-18 23:59 | disposition home or self-care (01) ==
PROVIDERS: PCP Family Medicine; Visit Provider Nurse Practitioner Family
DX: M48.062 Spinal stenosis, lumbar region with neurogenic claudication (principal); M54.50 Low back pain, unspecified; M51.369 Other intervertebral disc degeneration, lumbar region without mention of lumbar back pain or lower extremity pain; Z73.89 Other problems related to life management difficulty
CPT/HCPCS: 99212; G0463

== ENCOUNTER 2024-10-23 11:05 | Day surgery (SDC) | payer MEDICARE, BC, SELFPAY ==
[2024-10-23 11:09] VITALS: BP 119/76; PULSE 75; RESP 17; TEMP 37.1; O2SAT 97; BMI 26.6
[2024-10-23] MEDS: methylPREDNISolone ACETATE 80MG/ML VIAL 80 MG (11:33)
[2024-10-23] MEDS: BUPIVACAINE 0.25% 10ML INJ 25 MG IJ (11:33)
[2024-10-23] MEDS: LIDOCAINE 1% 5ML PF VIAL 5 ML (11:33)
[2024-10-23 11:34] VITALS: BP 118/70; PULSE 81; RESP 18; O2SAT 97
[2024-10-23 11:35] VITALS: BP 118/70; PULSE 81; RESP 18; O2SAT 97
[2024-10-23 11:40] VITALS: BP 114/77; PULSE 80; RESP 18; O2SAT 94
--- NOTE | 2024-10-23 12:31 | P.PCN_ITS ---
Procedure Date: 10/23/24 Time: 11:00 Anesthesiologist:: Jhon De CRNA Complications:: None Pre-procedure Diagnosis:: Right sacroiliitis. Right trochanteric bursitis. Post-procedure Diagnosis:: Same. Indications for Procedure:: Patient very pleasant 69-year-old male who comes our clinic today for right sacroiliac joint injection as well as right trochanteric bursa injection. Patient describes right low lumbar back pain as constant, dull, aching. Patient also reports right lateral hip pain is constant, dull, sharp, stabbing. He rates his pain 7/10. Procedure Details:: Procedure: Right trochanteric bursa injection under fluoroscopy We then moved to the right trochanteric bursa.~ C-arm fluoroscopy was used to view the left greater trochanter.~ The skin and subcutaneous tissues overlying the right greater trochanter were anesthetized using lidocaine, 1.5% and a 25- gauge needle.~ After this, a 22-gauge spinal needle was inserted and advanced until it contacted the right greater trochanter.~ Dye was injected and good spread was seen throughout the right trochanteric bursa. After this, approximately 5 mL of bupivacaine, 0.25% and Depo-Medrol, 40 mg was incrementally injected into the right right trochanteric bursa.~ The patient tolerated the procedure well with no complications. Procedure: Right sacroliliac joint injection under fluoroscopy Informed consent was obtained and the risk and benefits of the procedure were explained to the patient.~ The patient was taken to the procedure room and noninvasive monitors were placed including noninvasive blood pressure cuff and pulse oximeter.~ The patient was placed prone on the procedure table.~ The~ right hip was cleansed using Betadine as a cleansing solution.~ C-arm fluorosocpy was used to view the right SI joint.~ The skin and subcutaneous tissues were anesthetized using Lidocaine 1.5% and a 25-gauge needle.~ After this, a 22-gauge spinal needle was inserted under fluoroscopic guidance into the inferior aspect of the right SI joint.~ Omnipaque dye was injected and a good spread was seen throughout the joint.~ After this, approximately 5 mL of bupivacaine 0.25% and Depo-Medrol 40 mg was incrementally injected into the sacroiliac joint.~ The patient tolerated the procedure well with no complications.~ The patient was observed in the Pain Clinic, then discharged home neurologically intact.~ Plan and Disposition:: Patient was discharged without incident.
== END 2024-10-23 11:40 | disposition home or self-care (01) ==
LOC: SC.PAINP 11:07
PROVIDERS: PCP Family Medicine; Visit Provider Nurse Anesthetist, Certified Registered
DX: M46.1 Sacroiliitis, not elsewhere classified (principal); M70.61 Trochanteric bursitis, right hip
CPT/HCPCS: 20610; 27096; 77002; G0260; J1010

== ENCOUNTER 2024-11-02 14:24 | Day surgery (SDC) | payer MEDICARE, BC, SELFPAY ==
[2024-11-02 14:40] VITALS: BP 109/67; PULSE 74; RESP 16; TEMP 36.9; O2SAT 97; BMI 26.6
[2024-11-02] MEDS: LIDOCAINE 1% 30ML PF VIAL 30 ML (15:12)
[2024-11-02 15:13] VITALS: BP 122/71; PULSE 72; RESP 18; O2SAT 97
[2024-11-02] MEDS: methylPREDNISolone ACETATE 80MG/ML VIAL 80 MG (15:13)
[2024-11-02 15:23] VITALS: BP 122/71; PULSE 72; RESP 18; O2SAT 97
[2024-11-02] MEDS: IOPAMIDOL-200 (41%);10ML VIAL 10 ML IV (15:26)
[2024-11-02 15:37] VITALS: BP 131/75; PULSE 75; RESP 16; O2SAT 98
== END 2024-11-02 15:37 | disposition home or self-care (01) ==
LOC: SC.PAINP 14:25
PROVIDERS: PCP Family Medicine; Visit Provider Anesthesiology
DX: M51.369 Other intervertebral disc degeneration, lumbar region without mention of lumbar back pain or lower extremity pain (principal); M48.062 Spinal stenosis, lumbar region with neurogenic claudication
CPT/HCPCS: 62323; J1010; Q9966

== ENCOUNTER 2024-11-16 13:46 | Outpatient (POV) | payer MEDICARE, BC, SELFPAY ==
[2024-11-16 13:58] VITALS: BP 117/73; PULSE 85; RESP 14; O2SAT 96; BMI 26.6
--- NOTE | 2024-11-16 14:23 | EXP.PAIN.SOA ---
[facility] Disclaimer: The information contained in this section may have been updated after the patient was seen, as this information can be updated by other users. Medical History PAF (paroxysmal atrial fibrillation) Swelling of left parotid gland Atypical angina Carotid artery stenosis Ascending aorta dilation Severe mitral regurgitation Abnormal findings on diagnostic imaging of heart and coronary circulation Abnormal electrocardiogram [ECG] [EKG] Hyperlipidemia Fatigue Mitral regurgitation Abdominal bruit Aortic root dilatation Dyspnea on exertion Carotid bruit Cardiac murmur History of abdominal hernia Mild mitral valve prolapse BLANCA (obstructive sleep apnea) Surgical History Status post mitral valve annuloplasty S/P left atrial appendage ligation History of adenoidectomy History of open heart surgery Hx of thumb surgery History of colonoscopy History of tonsillectomy History of inguinal hernia repair History of repair of anterior cruciate ligament of left knee Family History Other Aneurysm Coronary artery disease Diabetes Hyperlipidemia Hypertension Social History Smoking Status: Never smoker alcohol intake: never substance use type: denies use current occupational status: other Travel in the last 8 weeks?: None household members: spouse housing: house lives independently: No marital status: education level: college service: No current occupational exposures/hazards: Yes caffeine: Yes do you feel safe at home: Yes victim of physical abuse: No victim of emotional abuse: No victim of sexual abuse: No would you like helpful sources: No PM Subjective & Objective Subjective Subjective:: Patient is a pleasant 69-year-old male who presents today for follow-up of his lumbar epidural steroid injection with epidurogram on 11/02/2024. Today he rates his pain a 4 out of 10. He does state that this injection did help both his back and his hip and rated about 90% improvement. Patient was counseled with Dr. Luna that he was a good candidate for the minimally invasive lumbar decompression. Today he does state that he would really like to proceed forward with this option. Patient has had chronic back pain for years that has progressively worsened. He does state the pain does interfere with his ability perform activities of daily living such as cooking and cleaning. Patient does state that he cannot walk very far without having to stop and take multiple breaks. Patient does also make mention that he has been experiencing worsening leg cramps. His Damon has been reviewed and is appropriate. Review of Systems: General: No recent weight changes, no fever, no sleep disturbances Respiratory: No cough, no shortness of air, no recurring pulmonary infections Cardiovascular/peripheral vascular: No chest pain, no palpitations, no edema, no shortness of breath Gastrointestinal: No new onset incontinence, normal bowel movements reported Genitourinary: No new onset incontinence Musculoskeletal: Low back pain Psychiatric: [Normal mood/affect] Neurological: [Denies weakness in extremities], [denies balance issues] Pain at rest (0-10 scale): 4 Objective Objective:: Physical Exam: General: Alert and oriented x3, no acute distress, pleasant and cooperative Lungs: Respirations even and unlabored, symmetrical chest expansion Eyes: PERRL Musculoskeletal: Flexion and extension of lumbar [spine] somewhat guarded secondary to pain, [antalgic gait noted] Neurological: Speech clear, no gross sensory deficit Has patient had previous pain injection?: Yes Percent improvement in pain since last injection: 90% Conservative treatment options previously tried: Home exercise plan Length of treatment: Longer than 12 weeks Meds Home Medications and Allergies Home Medications ?Medication ?Instructions ?Recorded ?Confirmed ?Type aspirin 81 mg tablet,delayed 81 mg PO DAILY preventative 12/22/20 11/16/24 History release coenzyme Q10 400 mg capsule 400 mg PO DAILY Supplement 08/12/21 11/16/24 History fexofenadine 180 mg tablet 180 mg PO DAILY . 08/12/21 11/16/24 History montelukast 10 mg tablet 10 mg PO DAILY allergies 08/12/21 11/16/24 History rosuvastatin 20 mg tablet 20 mg PO DAILY Cholesterol 08/12/21 11/16/24 History albuterol sulfate 90 mcg/actuation 1 puff inhalation ONCE 09/01/23 11/16/24 History aerosol inhaler fluticasone furoate 100 1 inh inhalation DAILY 01/06/24 11/16/24 History mcg-vilanterol 25 mcg/dose inhalation powder (Breo Ellipta) metoprolol tartrate 25 mg tablet 12.5 mg PO BID 04/02/24 11/16/24 History baclofen 10 mg tablet 10 mg PO HS #30 tabs 08/13/24 11/16/24 Rx prednisone 20 mg tablet 20 mg PO BID #10 tabs 10/05/24 11/16/24 Rx tramadol 50 mg tablet 50 mg PO BID PRN pain #28 tabs 10/18/24 11/16/24 Rx New Prescriptions to Start Prescriptions: Allergies Allergy/AdvReac Type Severity Reaction Status Date / Time morphine Allergy Mild rash Verified 10/23/24 11:11 codeine Allergy Vomiting Verified 10/23/24 11:11 Assessment and Plan *Assessment and plan (1) Spinal stenosis of lumbar region with neurogenic claudication: Status: Acute Category: Medical Code(s): M48.062 - Spinal stenosis, lumbar region with neurogenic claudication (2) Degenerative disc disease: Status: Acute Category: Medical (3) Low back pain: Status: Acute Category: Medical Code(s): M54.50 - Low back pain, unspecified (4) Greater trochanteric bursitis of right hip: Status: Acute Category: Medical Code(s): M70.61 - Trochanteric bursitis, right hip Plan Patient has had a successful lumbar epidural with epidurogram showing that he was a good candidate for the minimally invasive lumbar decompression procedure. I did review over the risk and benefits of this procedure and he would like to proceed forward with this plan of care. Patient has tried and failed conservative therapy including oral medications, heat and ice, topicals, physical therapy and at home exercising and stretching for longer than 12 weeks. We will submit to insurance for the minimally invasive lumbar decompression bilaterally L3-L4 and L4-L5 under fluoroscopy. I will also send in a 2-week dose of ropinirole 0.25 mg at bedtime. Minimally invasive lumbar decompression has ongoing clinical trials to confirm efficacy and improvement of spinal stenosis symptoms. # [id number] Patient has been instructed to contact the clinic with any concerns before the next appointment. Dr. Luna has reviewed this note and agrees with this plan of care. This note was dictated using voice recognition software and make contain errors or omissions. All injections are used with Lidocaine, Bupivacaine and dexamethasone. Occasionally urine drug screen is needed to verify patient's compliance with our office pain contract. This is ordered based off specific treatments related to chronic pain with the potential to abuse certain medications.
== END 2024-11-16 23:59 | disposition home or self-care (01) ==
PROVIDERS: PCP Family Medicine; Visit Provider Nurse Practitioner Family
DX: M48.062 Spinal stenosis, lumbar region with neurogenic claudication (principal); M54.50 Low back pain, unspecified; M70.61 Trochanteric bursitis, right hip; Z73.89 Other problems related to life management difficulty
CPT/HCPCS: 99212; G0463

== ENCOUNTER 2024-12-03 09:39 | Outpatient (POV) | payer MEDICARE, BC, SELFPAY ==
[2024-12-03 10:05] VITALS: BP 108/75; PULSE 77; RESP 18; O2SAT 96; BMI 26.6
--- NOTE | 2024-12-03 10:20 | EXP.PAIN.SOA ---
[facility] Disclaimer: The information contained in this section may have been updated after the patient was seen, as this information can be updated by other users. Medical History PAF (paroxysmal atrial fibrillation) Swelling of left parotid gland Atypical angina Carotid artery stenosis Ascending aorta dilation Severe mitral regurgitation Abnormal findings on diagnostic imaging of heart and coronary circulation Abnormal electrocardiogram [ECG] [EKG] Hyperlipidemia Fatigue Mitral regurgitation Abdominal bruit Aortic root dilatation Dyspnea on exertion Carotid bruit Cardiac murmur History of abdominal hernia Mild mitral valve prolapse BLANCA (obstructive sleep apnea) Surgical History Status post mitral valve annuloplasty S/P left atrial appendage ligation History of adenoidectomy History of open heart surgery Hx of thumb surgery History of colonoscopy History of tonsillectomy History of inguinal hernia repair History of repair of anterior cruciate ligament of left knee Family History Other Aneurysm Coronary artery disease Diabetes Hyperlipidemia Hypertension Social History Smoking Status: Never smoker alcohol intake: never substance use type: denies use current occupational status: other Travel in the last 8 weeks?: None household members: spouse housing: house lives independently: No marital status: education level: college service: No current occupational exposures/hazards: Yes caffeine: Yes do you feel safe at home: Yes victim of physical abuse: No victim of emotional abuse: No victim of sexual abuse: No would you like helpful sources: No Have you lived/traveled outside [place] in past 30 days?: No Contact w/someone who lives/traveled outside [place] past 30 days?: No Exposure to someone with infectious disease in past 14 days?: No Do you have a fever (greater than 100.4 F or 38 C)?: No Have you tested positive for COVID-19?: No Exposed to someone with COVID-19 in past 14 days?: No Do you have a sore throat?: No Do you have a cough?: No Do you have any weakness?: No Do you have any diarrhea?: No Are you experiencing any unusual bleeding?: No Do you have any muscle aches/pain?: No Do you have any abdominal pain?: No Are you experiencing loss of taste or smell?: No PM Subjective & Objective Subjective Subjective:: Patient is a pleasant 69-year-old male who presents today for follow-up. Today he rates his pain at 3 out of 10 currently. He states overall he is having a good day today. He denies any new falls or injuries. He does state that the ropinirole that we initially gave him with a 2-week dose of 0.25 mg at bedtime seem to help a little however overall he felt like it was not beneficial and has not continued to take this. Patient is still wanting to proceed forward with the minimally invasive lumbar decompression. Patient denies any new questions regarding this procedure. We are currently just waiting on insurance approval. His Damon has been reviewed and is appropriate. Review of Systems: General: No recent weight changes, no fever, no sleep disturbances Respiratory: No cough, no shortness of air, no recurring pulmonary infections Cardiovascular/peripheral vascular: No chest pain, no palpitations, no edema, no shortness of breath Gastrointestinal: No new onset incontinence, normal bowel movements reported Genitourinary: No new onset incontinence Musculoskeletal: Low back pain, leg pain Psychiatric: [Normal mood/affect] Neurological: [Denies weakness in extremities], [denies balance issues] Pain at rest (0-10 scale): 3 Objective Objective:: Physical Exam: General: Alert and oriented x3, no acute distress, pleasant and cooperative Lungs: Respirations even and unlabored, symmetrical chest expansion Eyes: PERRL Musculoskeletal: Flexion and extension of lumbar [spine] somewhat guarded secondary to pain, [antalgic gait noted] Neurological: Speech clear, no gross sensory deficit Has patient had previous pain injection?: No Conservative treatment options previously tried: Home exercise plan Length of treatment: Longer than 12 weeks Meds Home Medications and Allergies Home Medications ?Medication ?Instructions ?Recorded ?Confirmed ?Type aspirin 81 mg tablet,delayed 81 mg PO DAILY preventative 12/22/20 12/03/24 History release coenzyme Q10 400 mg capsule 400 mg PO DAILY Supplement 08/12/21 12/03/24 History fexofenadine 180 mg tablet 180 mg PO DAILY . 08/12/21 12/03/24 History montelukast 10 mg tablet 10 mg PO DAILY allergies 08/12/21 12/03/24 History rosuvastatin 20 mg tablet 20 mg PO DAILY Cholesterol 08/12/21 12/03/24 History albuterol sulfate 90 mcg/actuation 1 puff inhalation ONCE 09/01/23 12/03/24 History aerosol inhaler fluticasone furoate 100 1 inh inhalation DAILY 01/06/24 12/03/24 History mcg-vilanterol 25 mcg/dose inhalation powder (Breo Ellipta) metoprolol tartrate 25 mg tablet 12.5 mg PO BID 04/02/24 12/03/24 History baclofen 10 mg tablet 10 mg PO HS #30 tabs 08/13/24 12/03/24 Rx prednisone 20 mg tablet 20 mg PO BID #10 tabs 10/05/24 12/03/24 Rx tramadol 50 mg tablet 50 mg PO BID PRN pain #28 tabs 10/18/24 12/03/24 Rx ropinirole 0.25 mg tablet 0.25 mg PO HS #14 tabs 11/16/24 12/03/24 Rx New Prescriptions to Start Prescriptions: Allergies Allergy/AdvReac Type Severity Reaction Status Date / Time morphine Allergy Mild rash Verified 10/23/24 11:11 codeine Allergy Vomiting Verified 10/23/24 11:11 Assessment and Plan *Assessment and plan (1) Spinal stenosis of lumbar region with neurogenic claudication: Status: Acute Category: Medical Code(s): M48.062 - Spinal stenosis, lumbar region with neurogenic claudication (2) Degenerative disc disease: Status: Acute Category: Medical (3) Low back pain: Status: Acute Category: Medical Code(s): M54.50 - Low back pain, unspecified Plan I did addiction counselor the patient that we are still waiting for insurance approval and it is still currently pending. We will contact the patient once we have approval. Patient agrees with this plan of care. Patient has been instructed to contact the clinic with any concerns before the next appointment. Dr. Luna has reviewed this note and agrees with this plan of care. This note was dictated using voice recognition software and make contain errors or omissions. All injections are used with Lidocaine, Bupivacaine and dexamethasone. Occasionally urine drug screen is needed to verify patient's compliance with our office pain contract. This is ordered based off specific treatments related to chronic pain with the potential to abuse certain medications.
== END 2024-12-03 23:59 | disposition home or self-care (01) ==
LOC: SC.PAIN 09:41
PROVIDERS: PCP Family Medicine; Visit Provider Nurse Practitioner Family
DX: M48.062 Spinal stenosis, lumbar region with neurogenic claudication (principal); M54.50 Low back pain, unspecified
CPT/HCPCS: 99212; G0463

== ENCOUNTER 2024-12-18 13:26 | Outpatient (POV) | payer MEDICARE, BC, SELFPAY ==
[2024-12-18 13:49] VITALS: BP 112/71; PULSE 80; RESP 12; O2SAT 96; BMI 26.4
--- NOTE | 2024-12-18 15:49 | EXP.PAIN.SOA ---
[facility] Disclaimer: The information contained in this section may have been updated after the patient was seen, as this information can be updated by other users. Medical History PAF (paroxysmal atrial fibrillation) Swelling of left parotid gland Atypical angina Carotid artery stenosis Ascending aorta dilation Severe mitral regurgitation Abnormal findings on diagnostic imaging of heart and coronary circulation Abnormal electrocardiogram [ECG] [EKG] Hyperlipidemia Fatigue Mitral regurgitation Abdominal bruit Aortic root dilatation Dyspnea on exertion Carotid bruit Cardiac murmur History of abdominal hernia Mild mitral valve prolapse BLANCA (obstructive sleep apnea) Surgical History Status post mitral valve annuloplasty S/P left atrial appendage ligation History of adenoidectomy History of open heart surgery Hx of thumb surgery History of colonoscopy History of tonsillectomy History of inguinal hernia repair History of repair of anterior cruciate ligament of left knee Family History Other Aneurysm Coronary artery disease Diabetes Hyperlipidemia Hypertension Social History Smoking Status: Never smoker alcohol intake: never substance use type: denies use current occupational status: other Travel in the last 8 weeks?: None household members: spouse housing: house lives independently: No marital status: education level: college service: No current occupational exposures/hazards: Yes caffeine: Yes do you feel safe at home: Yes victim of physical abuse: No victim of emotional abuse: No victim of sexual abuse: No would you like helpful sources: No PM Subjective & Objective Subjective Subjective:: Scarlett is a pleasant 69-year-old male who presents today for worsening pain and insurance denial of the minimally invasive lumbar decompression procedure. He rates his pain today a 6 out of 10. He denies any new trauma or injury. He does state that he still has the chronic pain throughout his low back that does radiate down into his bilateral lower extremities with numbness and tingling. Patient does state that all of his pain is more related to when he is up walking or standing. He states overall when he sitting he is not really having the issues like what he is when he is ambulating. Patient does state the pain interferes with his ability perform activities of daily living such as cooking and cleaning. Patient states that it is going from his low back down into his hips and down his legs. Patient does state he still would like to proceed forward with the lumbar decompression procedure as well as possibly getting scheduled for injections if he can due to the worsening pain symptoms. Patient's Damon been reviewed and is appropriate. Review of Systems: General: No recent weight changes, no fever, no sleep disturbances Respiratory: No cough, no shortness of air, no recurring pulmonary infections Cardiovascular/peripheral vascular: No chest pain, no palpitations, no edema, no shortness of breath Gastrointestinal: No new onset incontinence, normal bowel movements reported Genitourinary: No new onset incontinence Musculoskeletal: Low back pain, bilateral leg pain, bilateral hip pain Psychiatric: [Normal mood/affect] Neurological: [Denies weakness in extremities], [denies balance issues] Pain at rest (0-10 scale): 6 Objective Objective:: Physical Exam: General: Alert and oriented x3, no acute distress, pleasant and cooperative Lungs: Respirations even and unlabored, symmetrical chest expansion Eyes: PERRL Musculoskeletal: Flexion and extension of lumbar [spine] somewhat guarded secondary to pain, [antalgic gait noted] point tenderness along bilateral greater trochanteric bursa, positive shopping cart sign Neurological: Speech clear, no gross sensory deficit Has patient had previous pain injection?: No Conservative treatment options previously tried: Home exercise plan Length of treatment: Longer than 12 weeks Meds Home Medications and Allergies Home Medications ?Medication ?Instructions ?Recorded ?Confirmed ?Type aspirin 81 mg tablet,delayed 81 mg PO DAILY preventative 12/22/20 12/18/24 History release coenzyme Q10 400 mg capsule 400 mg PO DAILY Supplement 08/12/21 12/18/24 History fexofenadine 180 mg tablet 180 mg PO DAILY . 08/12/21 12/18/24 History montelukast 10 mg tablet 10 mg PO DAILY allergies 08/12/21 12/18/24 History rosuvastatin 20 mg tablet 20 mg PO DAILY Cholesterol 08/12/21 12/18/24 History albuterol sulfate 90 mcg/actuation 1 puff inhalation ONCE 09/01/23 12/18/24 History aerosol inhaler fluticasone furoate 100 1 inh inhalation DAILY 01/06/24 12/18/24 History mcg-vilanterol 25 mcg/dose inhalation powder (Breo Ellipta) metoprolol tartrate 25 mg tablet 12.5 mg PO BID 04/02/24 12/18/24 History baclofen 10 mg tablet 10 mg PO HS #30 tabs 08/13/24 12/18/24 Rx New Prescriptions to Start Prescriptions: Allergies Allergy/AdvReac Type Severity Reaction Status Date / Time morphine Allergy Mild rash Verified 12/05/24 13:28 codeine Allergy Vomiting Verified 12/05/24 13:28 Assessment and Plan *Assessment and plan (1) Low back pain: Status: Acute Category: Medical Code(s): M54.50 - Low back pain, unspecified (2) Greater trochanteric bursitis of right hip: Status: Acute Category: Medical Code(s): M70.61 - Trochanteric bursitis, right hip (3) Degenerative disc disease: Status: Acute Category: Medical (4) Spinal stenosis of lumbar region with neurogenic claudication: Status: Acute Category: Medical Code(s): M48.062 - Spinal stenosis, lumbar region with neurogenic claudication Plan I did review over with the patient regarding his insurance denial stating that he did not meet medical necessity. We did review over the risk and benefits of the lumbar decompression and he still would like to proceed forward with this plan of care. Patient does have symptoms consistent with lumbar spinal stenosis with neurogenic claudication symptoms. Patient has had a lumbar epidural with epidural gradient that did show that he was a candidate for the lumbar decompression of L3-L4 L4-L5 bilaterally. Patient has tried and failed conservative therapy including oral medication, heat and ice, topicals, physical therapy and at home stretching exercise for longer than 12 weeks. Patient has also had injection therapy which has helped but has been frequently very temporary. We will resubmit for the lumbar decompression bilaterally L3-L4 L4-L5 under fluoroscopy. Patient does have the symptoms consistent for the minimally invasive lumbar decompression as well as findings on his latest MRI with multilevel ligamentum flavum hypertrophy and spinal stenosis. FINDINGS: Bones/joints: Modic type degenerative changes of the endplates of L1 and L2. Spinal cord: Visualized cord, conus medullaris and cauda equina are unremarkable without compression. L1-L2: Chronic disc bulge producing mild spinal stenosis. L2-L3: Chronic disc bulge combining with ligamentum flavum and facet hypertrophy to produce mild spinal stenosis, mildly worse than prior study. L3-L4: Disc bulge combining with ligamentum flavum and facet hypertrophy to produce moderate spinal stenosis, moderate right and severe left subarticular recess stenosis, and [id number] bilateral neural foraminal stenosis. L4-L5: Disc bulge combines with ligamentum flavum and facet hypertrophy to produce moderate spinal stenosis and moderate bilateral subarticular recess stenosis. L5-S1: No significant disc bulge or herniation. No severe spinal canal stenosis. No significant neural foraminal narrowing. Soft tissues: Unremarkable. IMPRESSION: No acute findings. Multilevel degenerative changes as detailed above. There is no level of severe spinal stenosis. I did also review with the patient today that he did have more tenderness around his bilateral bursa's and that we can see about getting him scheduled for a injection while we are waiting to hear back from insurance on the minimally invasive lumbar decompression. Patient does state he would like to proceed forward with this option. We did review over the risk and benefits of those injections. Patient will be scheduled for bilateral greater trochanteric bursa injections under fluoroscopy. Patient has been instructed to contact the clinic with any concerns before the next appointment. Dr. Luna has reviewed this note and agrees with this plan of care. This note was dictated using voice recognition software and make contain errors or omissions. All injections are used with Lidocaine, Bupivacaine and dexamethasone. Occasionally urine drug screen is needed to verify patient's compliance with our office pain contract. This is ordered based off specific treatments related to chronic pain with the potential to abuse certain medications.
== END 2024-12-18 23:59 | disposition home or self-care (01) ==
LOC: SC.PAIN 13:27
PROVIDERS: PCP Family Medicine; Visit Provider Nurse Practitioner Family
DX: M70.61 Trochanteric bursitis, right hip (principal); M48.062 Spinal stenosis, lumbar region with neurogenic claudication
CPT/HCPCS: 99212; G0463

== ENCOUNTER 2024-12-20 13:32 | Outpatient (CLI) | payer MEDICARE, BC, SELFPAY ==
--- NOTE | 2024-12-20 13:35 | XR_ITS ---
FINAL REPORT CLINICAL HISTORY: left wrist pain FINDINGS: AP, oblique, and lateral views of the left wrist were obtained. There is no prior exam for comparison. There is no acute fracture or dislocation. There is widening of the scapholunate distance which is consistent with scapholunate ligament tear. Degenerative joint disease is most pronounced at the STT joint. Soft tissues otherwise without acute abnormality. IMPRESSION: No acute osseous abnormality. Findings consistent with scapholunate ligament tear. Reviewed, Interpreted and Dictated by April Franklin MD Transcribed by Bridget Baker Authenticated and [facility]
--- NOTE | 2024-12-20 13:35 | XR_ITS ---
FINAL REPORT CLINICAL HISTORY: right wrist pain, checking for nerve damage FINDINGS: AP, oblique, and lateral views of the right wrist were obtained. There is no prior exam for comparison. There is no acute fracture or dislocation. There is mild multi joint degenerative disease which is most pronounced at the 1st CMC joint. No acute soft tissue abnormality. IMPRESSION: Mild degenerative change without acute osseous abnormality of the right wrist. Reviewed, Interpreted and Dictated by April Franklin MD Transcribed by Bridget Baker Authenticated and [facility]
== END 2024-12-20 23:59 | disposition home or self-care (01) ==
LOC: RAD 13:33
PROVIDERS: PCP Family Medicine; Visit Provider Physician Assistant Surgical
DX: M19.031 Primary osteoarthritis, right wrist (principal); S63.592A Other specified sprain of left wrist, initial encounter
CPT/HCPCS: 73110

== ENCOUNTER 2025-01-08 09:08 | Day surgery (SDC) | payer MEDICARE, BC, SELFPAY ==
[2025-01-08 09:27] VITALS: BP 131/77; PULSE 68; RESP 18; O2SAT 97; BMI 26.6
[2025-01-08] MEDS: LIDOCAINE 1% 5ML PF VIAL 5 ML (09:37)
[2025-01-08] MEDS: DEXAMETHASONE 10MG/ML 1ML VIAL 10 MG (09:37)
[2025-01-08] MEDS: BUPIVACAINE 0.25% 10ML INJ 25 MG IJ (09:37)
[2025-01-08 09:38] VITALS: BP 127/73; PULSE 68; RESP 18; O2SAT 97
--- NOTE | 2025-01-08 09:38 | P.PCN_ITS ---
Procedure Date: 01/08/25 Time: 09:40 Anesthesiologist:: Jhon De CRNA Complications:: None Pre-procedure Diagnosis:: Bilateral trochanteric bursitis Post-procedure Diagnosis:: Same Indications for Procedure:: Patient is a pleasant 69-year-old male who comes our clinic today for bilateral trochanteric bursa injections of cortisone local anesthetic. Patient describes bilateral lateral hip pain as constant, dull, sharp, stabbing. He rates his pain 7/10. Procedure Details:: Procedure: Bilateral trochanteric bursa joint injections under fluoroscopy Informed consent was obtained and the risks and benefits of the procedure were explained to the patient.~ The patient was taken to the procedure room and noninvasive monitors were placed including a noninvasive blood pressure cuff and pulse oximeter.~ The patient was placed prone on the procedure table. Both hips were cleansed using Betadine as a cleansing solution. C-arm fluoroscopy was used to view the right trochanteric bursa joint.~ The skin and subcutaneous tissues were anesthetized using lidocaine 1.5% and a 25-gauge needle.~ After this, a 22- gauge spinal needle was inserted under fluoroscopic guidance into the inferior aspect of the right trochanteric bursa.~ Omnipaque dye was injected and good spread was seen throughout the joint.~ After this, approximately 5 mL of bupivacaine, 0.25% and dexamethasone 5 mg was incrementally injected into the right sacroiliac joint. We then moved to the left trochanteric bursa joint.~ The skin and subcutaneous tissues were anesthetized using lidocaine 1.5% and a 25-gauge needle.~ After this, a 22-gauge spinal needle was inserted under fluoroscopic guidance into the inferior aspect of the left trochanteric bursa joint.~ Omnipaque dye was injected and good spread was seen throughout the joint. After this, approximately 5 mL of bupivacaine, 0.25% and dexamethasone 5 mg was incrementally injected into the left sacroiliac joint.~ The patient tolerated the procedure well with no complications. The patient was observed in the Pain Clinic and then was discharged home neurologically intact. Plan and Disposition:: Patient was discharged without incident.
[2025-01-08 09:39] VITALS: BP 127/73; PULSE 68; RESP 18; O2SAT 97
[2025-01-08 09:45] VITALS: BP 129/81; PULSE 73; RESP 18; O2SAT 96
== END 2025-01-08 09:45 | disposition home or self-care (01) ==
PROVIDERS: PCP Family Medicine; Visit Provider Nurse Anesthetist, Certified Registered
DX: M70.62 Trochanteric bursitis, left hip (principal); M70.61 Trochanteric bursitis, right hip; I77.819 Aortic ectasia, unspecified site; E78.5 Hyperlipidemia, unspecified; I34.1 Nonrheumatic mitral (valve) prolapse; I34.0 Nonrheumatic mitral (valve) insufficiency; G47.33 Obstructive sleep apnea (adult) (pediatric); I48.0 Paroxysmal atrial fibrillation; Z88.5 Allergy status to narcotic agent; Z79.82 Long term (current) use of aspirin; Z79.899 Other long term (current) drug therapy
CPT/HCPCS: 20610; 77002; J0665; J1100; J2003

== ENCOUNTER 2025-01-30 08:44 | Outpatient (POV) | payer MEDICARE, BC, SELFPAY ==
--- OUTSIDE RECORDS SUMMARY | 2024-07-07 05:30 | XMS_ITS ---
[facility] Address [facility] [address] [id number] Care Team Providers Care Facility Service Associate Name Role Phone Lane Rodriguez Primary Care Provider Humberto Enamorado Unavailable [phone] Allergies Allergen (clinical drug ingredient) Drug/Non Drug Allergy documented on EMR Reaction Allergy Type Onset Date Status ibuprofen Advil excessive bleeding Drug Allergy Active Reason For Referral Reason Please use [facility] Diagnosis 1 Lumbago with sciatic a, right side (M54.41) [facility] Referring Provider First Name Humberto Referring Provider Last Name Kelsea Referring Provider Speciality Family Pra ctice Referred Provider Physical Therapy, . Referred Provider Specialty Physical The rapist General Notes Crista Burrell 024 9:11:45 AM > faxed to [facility] PT Referral Priority Routine REASON FOR [...] Status W/U Status Risk Notes Problem Sciatica (88801912) Lumbago with sciatica, right side (M54.41) Active confirmed Problem Chronic pain (27359734) Other chronic pain (G89.29) Active confirmed Problem Degenerative lumbar spinal stenosis (244990035) Degenerative lumbar spinal stenosis (M48.061) Active confirmed Problem Arthropathy of lumbar facet joint (504597879) Lumbar facet arthropathy (M47.816) Active confirmed Vital Signs Blood pressure systolic 116 mm Hg 07/07/20 24 Blood pressure diastolic 78 mm Hg 024 Heart Rate 78 /min 07/07/2024 Height 69 in 07/07/2024 Weight 181.4 lbs 07/07/2024 BMI 26.79 kg/m2 07/07/2024 Encounters Encounter Location Date Provider Diagnosis [facility] [address] [place], [place] [id number] 07/07/2024 Humberto [place] Lumbago with sciatic a, right side M54.41 [...] Date Details 07/07/2024 07/07/2024, Please u se [facility], . Physical Therapy Next Appt Details Follow Up: via phone to repo rt progress, Reason: Provider Name:Lane Motley er, 05/20/2025 10:15:00 AM, [address] [place] [facility] 36 [facility], [address] , [place], [place], [id number], Progress Notes * JORGE ALBERTO WHITE DDOB: [birth year] (69 yo M)Acc No.[id number]:07/07/2024 Progress Notes Patient: JORGE ALBERTO BISHOP Denice Provider: Tiffany Enamorado M.D. :1955 A ge:69 Y S ex:Male Date:07/07/2024 Address:[address] [place] [address], [place] [address] Pcp:Lane Rodriguez Subjective: * Chief Complaints: * [...] * Images: Billing Information: * Visit Code: 39638 Office Visit, Est Pt., Level 3. * Procedure Codes: G2211 Complex e/m visit add on. * Electronic signature of Millicent Enamorado MD on 01/30/2025 at 08:50 AM EDT Sign off status: Pending * Provider: Tiffany Enamorado M.D. Date: 1 09/07/2023 Generated for Juan calire/Olga/Aleshiaitting on: 0 01/30/2025 08:50 AM EDT History and Physical Notes * [...] Humberto Enamorado Physical Therapy, . Zahida hyde [facility]
--- OUTSIDE RECORDS SUMMARY | 2024-07-26 11:45 | XMS_ITS ---
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 Name Role Phone Lane Rodriguez Primary Care [...] Interpretation:Normal Performing Lab: Notes/Report: Test performed by [facility], [facility]0 [facility] , [address], [place] [address] Louie Cagle MD, Industrial Controller CLIA: [id number] Sodium 136 135-145 mmol/L Potassium 4.5 3.5-5.3 [...] Interpretation:Normal Performing Lab: Notes/Report: Test performed by [facility], [address] , [place] [address] Louie Cagle MD, Industrial Controller CLIA: [id number] Cholesterol 150 <200 mg/dL Triglycerides 84 <150 [...] Encounter Location Date Provider Diagnosis [facility]10 [facility] 36 [facility] [address] [place] [id number] 07/26/2024 Lane Rodriguez Pure hypercholestero lemia E78.00 [...] Name:Lane Motley er, 05/20/2025 10:15:00 AM, 1210 [facility] 36 [facility], [address], [place], [id number], Progress Notes * JORGE ALBERTO WHITE DDOB: [birth year] (69 yo M)Acc No.[id number]:07/26/2024 Progress Notes Patient: JORGE ALBERTO BISHOP Provider: Lane Rodriguez M.D. :1955 A ge:69 Y S ex:Male Date:07/26/2024 Address:[address] [place] [address], [place] [address] Subjective: * Chief Complaints: * 1 . [...] G 2211 Complex e/[place], [address] CBC WITH AUTO DIFF, 17046 VENIPUNCT, ROUTINE* * Follow Up: 3 Months * Images: Billing Information: * Visit Code: 33114 Office Visit, Est Pt., Level 4. * Procedure Codes: G2211 Complex e/[place]. [address] CBC WITH AUTO DIFF. 94499 VENIPUNCT, ROUTINE*. * Electronic signature of Lane Rodriguez MD on 01/30/2025 at 08:50 AM EDT Sign off status: Pending * Provider: Lane Rodriguez M.D. Date: 0 07/26/2024 Generated for Jaxoni dakotah/Olga/eTransmitting on: 0 01/30/2025 08:50 AM EDT History [...]
--- OUTSIDE RECORDS SUMMARY | 2024-11-19 07:30 | XMS_ITS ---
Author Organization [facility] Address [address] [phone] Care Team Providers Care Manager Of Recruiting Name Role Phone Lane Rodriguez Primary Care Provider Allergies Allergen (clinical drug ingredient) Drug/Non Drug Allergy documented on EMR Reaction Allergy Type Onset Date Status ibuprofen Advil excessive bleeding Drug Allergy Active Results Component Value Reference Range Notes P-Comprehensive Metabolic Pa fadia (CMP) Reviewed date:11/22/2024 11:43:52 AM Interpretation:Normal Performing Lab: Notes/Report: Test performed by [facility] [address] [place] [address] , [address], [place] [address] Louie Cagle MD, Design Maker CLIA: [id number] Sodium 140 135-145 mmol/L Potassium 5.1 3.5-5.3 [...] Status Risk Notes Problem Paroxysmal atrial fibrillation (171652399) Paroxysmal atrial fibrillation (I48.0) Active confirmed Vital Signs Blood pressure systolic 114 mm Hg 11/20/19 25 Blood pressure diastolic 80 mm Hg 025 Heart Rate 79 /min 11/19/2024 Height 69 in 11/19/2024 Weight 180.8 lbs 11/19/2024 BMI 26.7 kg/m2 11/19/2024 Encounters Encounter Location Date Provider Diagnosis [facility] [address] [place] [phone] 11/19/2024 Lane Rodriguez Status post mitral valve [...] Motley , 05/20/2025 10:15:00 AM, [address], [address] , [place], [place], [phone], Progress Notes * JORGE ALBERTO WHITE DDOB: [birth year] (69 yo M)Acc No.[id number]:11/19/2024 Progress Notes Patient: JORGE ALBERTO BISHOP Provider: Lane Rodriguez M.D. :1955 A ge:69 Y S ex:Male Date:11/19/2024 Address:[address] [place] [address], [place] [address] Subjective: * Chief Complaints: * 1 . [...] * Images: Billing Information: * Visit Code: 88549 Office Visit, Est Pt., Level 4. * [...] 11/19/2024 Generated for Printi ng/Faemeraldg/eTransmitting on: 0 01/30/2025 08:50 AM EDT History [...]
--- OUTSIDE RECORDS SUMMARY | 2025-01-30 08:50 | XMS_ITS | Clinical Summary ---
Author Organization [facility] Address [address] [place] [address] Care Team Providers Care Cafe Or Restaurant Manager Name Role Phone Jamil Rodriguez MD Unavailable [phone] Jamil Rodriguez MD Primary Care Provider [phone] Brandt Burrell MD Unavailable [phone] Allergies Active Allergy Reactions Criticality Noted Date Comments Codeine Rash Low 06/01/2022 Morphine Rash Low 06/08/2022 Medications albuterol 108 (90 Base) MCG/ACT inhaler Inhale 1 puff 1 (one) time if needed for wheezing. Active aspirin 81 MG EC tablet Take 1 tablet (81 mg) by mouth 1 (one) time each day. Active coenzyme Q-10 200 MG tablet Take 2 tablets (400 mg) by mouth 1 (one) time each day. Active fexofenadine (Vandana) 180 MG tablet Take 1 tablet (180 mg) by mouth 1 (one) time each day. Active Fluticasone Furoate-Vilante rol 100-25 MCG/ACT aerosol powder Inhale 25 mcg 1 (one) time each day. Active montelukast (Singulair) 10 MG tablet Take 1 tablet (10 mg) by mouth every night. Active rosuvastatin (Crestor) 20 MG tablet Take 1 tablet (20 mg) by mouth every night. Active acetaminophen (Tylenol) 325 MG tablet Take 2 tablets (650 mg) by mouth every 4 (four) hours if needed for pain. Active amiodarone (Pacerone) 400 MG tablet Take 1 tablet (400 mg) by mouth 2 (two) times a day for 11 doses. 11 tablet 4 Active Additional Information Patient taking differently: 200 mgOralDaily, Reported on 03/28/2024 amiodarone (Pacerone) 200 MG tablet Take 1 tablet (200 mg) by mouth 1 (one) time each day. 30 tablet 4 Active furosemide (Lasix) 40 MG tablet Take 1 tablet (40 mg) by mouth 1 (one) time each day for 3 days. 3 tablet 4 Active naloxone (Narcan) 4 mg/0.1 mL nasal spray 1. Give 1 spray in nostril for no/slow breathing or cannot wake after opioid use 2. Call 911 3. Repeat in other nostril if symptoms continue 1 each 4 Active methocarbamol (Robaxin) 500 MG tablet Take 1 tablet (500 mg) by mouth 4 (four) times a day for 10 days. 40 tablet 4 Active metoprolol tartrate (Lopressor) 25 MG tablet Take 0.5 tablets (12.5 mg) by mouth 2 (two) times a day. 30 tablet 3 4 Active cefdinir (Omnicef) 300 MG capsule Take 1 capsule (300 mg) by mouth 2 (two) times a day. 4 Active mupirocin (Bactroban) 2 % ointment Apply 1 Application topically 3 (three) times a day. 4 Active furosemide (Lasix) 40 MG tablet Take 1 tablet (40 mg) by mouth 1 (one) time each day for 7 days. 7 tablet 4 Active Active Problems Problem Noted Date Diagnosed Date Mild pulmonary valve regurgitation 03/05/2024 Grade II diastolic dysfunction 03/05/2024 Left atrial dilation 03/05/2024 S/P left atrial appendage ligation 03/05/2024 Cardiac volume overload 03/05/2024 Acute blood loss anemia 03/05/2024 RBBB 03/05/2024 Overweight 03/05/2024 Hypocalcemia 03/05/2024 Atrial fibrillation 03/01/2024 Overview (03/01/2024): New episode 03/01 post op. Atrial fibrillation without RVR, HR <120 and hemodynamically stable Received IV metoprolol pushes (5 mg x2) - Started on metoprolol BID Asthma 02/29/2024 Overview (02/29/2024): Allergy-induced No recent exacerbations Restarted home medications on 02/28. Severe mitral regurgitation 02/28/2024 Obstructive sleep apnea 02/28/2024 Overview (02/29/2024): On CPAP at home - Encouraged to use home CPAP at night while inpatient Mild aortic insufficiency 02/28/2024 Ascending aorta dilatation 02/28/2024 Other hyperlipidemia 02/28/2024 Overview (02/28/2024): 02/27 - plan to resume tomorrow S/P MVR (mitral valve repair) 02/28/2024 Overview (03/01/2024): 02/27 - s/p MV repair (using radical reconstruction and using a physio flex partial semi rigid ring size 40 mm), LEORA surgically excluded 02/28/[address] Ruggiero - Regular cardiac diet with advancement as tolerated - Multi-modal analgesia with IV dilaudid, PO oxy - Holding DVT ppx with enoxaparin 40 mg subQ in the setting of thrombocytopenia - Wean vasopressors/inotropes as tolerated - Line de-escalation as appropriate - Has scheduled bowel regimen - Will assess need post op for diuresis, based on daily CXRs and volume status - Mobilization with PT/OT as appropriate BMI 25.0-25.9,adult 02/22/2024 Overview (02/28/2024): Complicates all aspects of care Mitral valve prolapse 02/22/2024 Resolved Problems Problem Noted Date Diagnosed Date Resolved Date Hypokalemia 03/06/2024 03/07/2024 Dyspnea 03/05/2024 03/07/2024 Fatigue 03/05/2024 03/07/2024 Hypermagnesemia 03/05/2024 03/07/2024 Hyponatremia 03/05/2024 03/07/2024 Transient hyperglycemia post procedure 03/05/2024 03/07/2024 Leukocytosis 03/01/2024 03/07/2024 Overview (03/01/2024): - Will trend WBC - Will monitor fever curve and developing signs of infection. CKD (chronic kidney disease) 03/01/2024 03/07/2024 Respiratory insufficiency 02/29/2024 Overview (03/01/2024): Extubated on 02/27 to HFNC and then weaned to NC. - Wean NC to RA, maintaining Sp02>/= 92% Thrombocytopenia 02/29/2024 03/07/2024 Overview (02/29/2024): Expected post op, given requirement intra-op with CPB - Continue to monitor for signs of bleeding including development of new petechiae or oropharngeal/gum bleeding. Will transfuse as needed. Sinus bradycardia 02/28/2024 03/07/2024 Overview (02/29/2024): 02/27 - sinus sotero in the OR. Not requiring pacing at this time (settings: DDD, rate 58, V 15mA, A 6 mA, AV interval 240, sensitivity 0.5) 02/28- No pacing requirements currently. (DDD at 58) Post-operative pain 02/28/2024 02/29/20 Overview (02/28/2024): 02/27 - on multi modal pain control Chest tube in place 02/28/2024 03/07/20 Overview (02/29/2024): 02/27 - two mediastinal chest tubes, one pleural drain 02/[address] output Acute hypoxemic respiratory failure 02/28/2024 02/29/2024 Overview (02/28/2024): 02/27 - sedated on precedex and intubated post-op Hyperkalemia 02/28/2024 03/01/2024 Overview (02/28/2024): 02/27 - monitor K+ post bypass (5.2 --> 4.6) Family History Medical History Relation Name Comments Aneurysm Mother Coronary artery disease Mother Diabetes Mother Hyperlipidemia Mother Hypertension Mother Anesthesia problems Neg Hx Malig Hyperthermia Neg Hx Relation Name Status Comments Mother Social History Tobacco Use Types Packs/Day Years Used Date Smoking Tobacco: Never Passive Smoke Exposure: Past Smokeless Tobacco: Never Tobacco Cessation:Counseling Given: Not Answered Alcohol Use Standard Drinks/Week Comments Yes 5 (1 standard drink = 0.6 oz pur e alcohol) Social Connection and Isolation Panel Answer Date Recorded Frequency of Communication with Friends and Fami ly Not on file 03/01/2024 Frequency of Social Gatherings with Friends and Family Not on file 03/01/2024 Attends Scientologist Services Not on file 03/01 Active Member of Clubs or Organizations Not on f ile 03/01/2024 Attends Club or Organization Meetings Not on aleks e 03/01/2024 Are you , , di vorced, , never , or living with a partner? 03/01/2024 Hunger Vital Sign Answer Date Recorded Within the past 12 months, y ou worried that your food would run out before you got the money to buy more. Never true 03/01/20 24 Within the past 12 months, t he food you bought just didn't last and you didn't have money to get more. Never true 03/01/2024 PRAPARE - Transportation Answer Date Re corded In the past 12 months, has l ack of transportation kept you from medical appointments or from getting medications? No 02/15 In the past 12 months, has l ack of transportation kept you from meetings, work, or from getting things needed for daily living? No 03/01/2024 Housing Stability Vital Sign Answer Armando e Recorded In the last 12 months, was t here a time when you were not able to pay the mortgage or rent on time? No 03/01/2024 In the last 12 months, how many places have you lived? 1 03/01/2024 In the last 12 months, was t here a time when you did not have a steady place to sleep or slept in a longterm (including now)? No 03/01/2024 Utilities Answer Date Recorded In the past 12 months has th e electric, gas, oil, or water company threatened to shut off services in your home? No 03/01/2024 Sex and Gender Information Value Date Recorded Sex Assigned at Not on file Legal Sex Male 8:00 PM EDT Gender Identity Not on file Sexual Orientation Not on file Occupation Industry Job Start Date Job End Date retired Not on file Not on file Not on file Last Filed Vital Signs Vital Sign Reading Time Taken Comments Blood Pressure 113/75 05/09/2024 10:12 AM EDT Pulse 85 05/09/2024 10:12 AM EDT Temperature 36.7 C (98.1 F) 03/07/2024 10:00 AM EDT Respiratory Rate 22 03/07/2024 10:00 AM EDT Oxygen Saturation 97% 05/09/2024 10:12 AM EDT Inhaled Oxygen Concentration - - Weight 81.4 kg (179 lb 9 oz) 05/09/2024 10:12 AM EDT Height 175.3 cm (5' 9 ) 05/09/2024 10:12 AM EDT Body Mass Index 26.52 05/09/2024 10:12 AM EDT Plan of Treatment Upcoming Encounters Date Type Department Care Team (Late st Contact Info) Description 05/08/2025 11:15 AM EDT [facility] Visit [facility] [address], [facility] [address] [place] [address] Buddy Ruggiero MD [address] [place] [address] Health Maintenance Due Date Last Done Comments [facility]-Depression Screening 1955 [facility]-Hepatitis C Screening 1955 [facility]Medicare Annual Wellness (AWV) 1955 [facility]-Infant/Child/Adol SDOH Screenings 1955 [facility]- SDOH Screenings 1971 [facility]-Adult SDOH Screenings 1971 CT Colonography 1998 Colonoscopy 1998 FIT-DNA 1998 FIT 1998 FOBT 1998 Sigmoidoscopy 1998 [facility]-Colorectal Cancer Screening 1998 [facility]-RSV Vaccine: 60+ Years or (1 - Risk 60-74 years 1-dose series) 2013 [facility]-Zoster Vaccines (2 of 2) 07/10/2020 05/15/2020 [facility]-DTaP,Tdap,and Td Vaccines (1 - Tdap) 04/27/2022 04/26/2022 [id number] Vaccine (9 - 2023-25 season) 2024 04/28/2024, 12/06/2023, 04/15/2023, Additional history exists [facility]-Influenza Vaccine (#1) 03/18/202504/28, 05/05/2022, 2021, Additional history exists [facility]-Pneumococcal Vaccine: 50+ Years Completed 11/17/2022 [facility]-Obesity Intervention Completed 024, 03/28/2024, 02/22/2024, Additional history exists HPV Vaccines Aged Out No longer eligi ble based on patient's age to complete this topic [facility]-HIB Vaccines Aged Out No longer e ligible based on patient's age to complete this topic [facility]-Hepatitis A Vaccines Aged Out No longer eligible based on patient's age to complete this topic [facility]-IPV Vaccines Aged Out No longer e ligible based on patient's age to complete this topic [facility]-Rotavirus Vaccines Aged Out No lo nger eligible based on patient's age to complete this topic Medical Devices Implanted Type Area Watershed Program Manager Device Identifier Shelf Expiration Date Model / Serial / Lot Ring Mitral Annuloplasty Physioflex 40mm - [id number] - [id number] Implanted:Qty: 1 on 02/28/2024 by Buddy Ruggiero MD at [facility]-[id number] 12/18/2024 [id number] / [id number] / [id number] [place] [address] ANTHEM Advance Directives Documents on File Type Date Recorded Patient Clinical Rehabilitation Coordinator Expl anation Advance Directives and Living Will 02/28/2024 Power of Roof Cement And Paint Maker Helper 02/28/2024 * Full Code (Latest Code Status on File) Date Activated Date Inactivated Comments 02/28/2024 2:51 PM 03/07/2024 2:05 PM Question Answer Comments Patient has decision-making capacity? Yes Care Teams Cafe Or Restaurant Manager Relationship Specialty Start Date End Date Jamil Rodriguez MD [address] [facility] [address] [place] [address] PCP - General 02/20/24 Jamil Rodriguez MD [address] [place] [address] Referring Physician 02/20/24 Brandt Burrell MD [address] [facility] [address] [place] [address] Referring Physician Cardiology 03/06/24
--- OUTSIDE RECORDS SUMMARY | 2025-01-30 08:50 | XMS_ITS | Patient Health Record ---
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5 3.5-5.3 [...] Interpretation:Normal Performing Lab: Notes/Report: Test performed by [facility] [address] [place] [address] , [address], [place] [address] Louie Cagle MD, Legislative Aide CLIA: [id number] Cholesterol 150 <200 mg/dL Triglycerides 84 <150 [...] Results: 75 Units: mg/dL % Change: -15% CBC Fingerstick (in house) Reviewed date:03/22/2024 12:13:30 [...] - 38 plat 216 100 - 400 CBC Fingerstick (in house) Reviewed date:03/29/2024 01:40:16 [...] - 38 plat 194 100 - 400 P-Comprehensive Metabolic Pa fadia (CMP) Reviewed date:11/22/2024 11:43:52 AM Interpretation:Normal Performing Lab: Notes/Report: Test performed by [facility] [address] [place] [address] , [address], [place] [address] Louie Cagle MD, Legislative Aide CLIA: [id number] Sodium 140 135-145 mmol/L Potassium 5.1 3.5-5.3 [...] 0.8 <0.2-1.2 mg/dL A/G Ratio 1.9 1.1-2.5 Reason For Referral Diagnosis 1 Parotid swelling (R6 0.9) Referral Organization Susie Referring Provider First Name Marsha Referring Provider Last Name Norberto Referring Provider Speciality Physician Leisure Studies Professor Referred Provider ENT, . Referred Provider Specialty ENT General Notes Marsha Thornton 03/29 10:06:45 AM > Needs to see ENT Gilda KUMAR Shelia 03/29/2024 10:46:37 AM > referral faxed to ENT at [facility] Referral Priority Routine Diagnosis 1 Degenerative disc di sease, cervical (M50.30) Referral Organization [facility] Referring Provider First Name Lane Tanner Referring Provider Last Name Michael Referring Provider Speciality Family Pra ctice Referred Provider Specialty Pain Managem ent General Notes Crista Burrell 024 12:25:45 PM > faxed to [facility] Pain Management, Crista Burrell 07/06/2024 9:14:47 AM > confirmed with office they received referral; calling today to set up appt Referral Priority Routine Reason Please use [facility] Diagnosis 1 Lumbago with sciatic a, right side (M54.41) Referral Organization Stacie Referring Provider First Name Humberto Referring Provider Last Name Kelsea Referring Provider Speciality Family Pra ctice Referred Provider Physical Therapy, . Referred Provider Specialty Physical The rapist General Notes Crista Burrell 024 9:11:45 AM > faxed to [facility] PT Referral Priority Routine Medications Medication SIG (Take, Route, Frequency, Duration) Notes Start Date End Date Status valACYclovir HCl 500 MG TAKE 1 TABLET BY MOUTH THREE TIMES A DAY; Duration: 5 Active Rosuvastatin Calcium 20 MG TAKE 1 TABLET BY MOUTH EVERY NIGHT AT BEDTIME; Duration: 90 Active CPAP SUPPLIES DIRECTED 09/16/2020 Act hayley Mupirocin 2 % 1 application Externally Twice a day Not-Takin g CoQ10 200 MG as directed orally o nce a day; Duration: 30 day(s) 05/11/2021 Active Acetaminophen 325 MG 1 tablet as needed Orally every 6 hrs Active Methocarbamol 500 MG 1 tablet Orally thr ee times a day as needed; Duration: 30 day(s) Not-Taking Aspirin 81 MG 1 tab(s) orally once a day; Duration: 30 day(s) 05/14/2020 Active Amiodarone HCl 200 MG 1 tablet Orally On ce a day; Duration: 30 day(s) Not-Taking Fexofenadine HCl 180 MG TAKE 1 TABLET BY MOUTH EVERY DAY; Duration: 90 Active Albuterol Sulfate HFA 108 (90 Base) MCG/ACT 2 inhalations Inhalation four times a day as needed 07/28/2023 Active Metoprolol Tartrate 25 MG TAKE 1 TABLET BY MOUTH TWICE A DAY WITH FOOD FOR 90 DAYS; Duration: 90 Active rOPINIRole HCl 0.25 MG 1 tablet 1 to 3 h ours before bedtime Orally Once a day Active Breo Ellipta 100-25 MCG/ACT INHALE 1 PUFF ONCE A DAY; Duration: 30 days Active Montelukast Sodium 10 MG TAKE 1 TABLET B Y MOUTH EVERY NIGHT AT BEDTIME; Duration: 90 Active Immunizations Vaccine Route Administration Date Status Comme nts COVID 19 Moderna Unknown 10/19/2021 Administered COVID 19 Pfizer IM Intramuscular 09/10/2020 Administered COVID 19 Pfizer IM Intramuscular 10/04/2020 Administered COVID 19 Pfizer Unknown 04/20/2021 Administered Fluzone High Dose (65yr and older) Unknown 04/09/2020 Administered Fluzone High Dose (65yr and older) IM Intramuscular 2021 Administered Fluzone High Dose (65yr and older) IM Intramuscular 05/05/2022 Administered Fluzone High Dose (65yr and older) IM Intramuscular 05/03/2023 Administered Fluzone PF Quad (6-35 months) Unknown 04/15/2017 Administered Prevnar (PCV20) IM Intramuscular 11/17/2022 Administered Shingrix Unknown 05/15/2020 Administered xFluzone High Dose-private (65yr&older) Unknown 04/28/2024 Administered Problems Problem Type SNOMED Code ICD Code Onset Dates Problem Status W/U Status Risk Notes Problem Arthropathy of lumba r facet joint (089366396) Lumbar facet arthropathy (M47.816) Active confirmed Problem Obstructive sleep apnea (53331815) Obstructive sleep apnea (G47.33) Active confirmed Problem Paroxysmal atrial fibrillation (508186367) Paroxysmal atrial fibrillation (I48.0) Active confirmed Problem Memory loss (49715642) Memory loss (R41.3) Active confirmed Problem Sciatica (88274369) Lumbago with sciatica, right side (M54.41) Active confirmed Problem Chronic pain (14464894) Other chronic pain (G89.29) Active confirmed Problem Degeneration of cervical intervertebral disc (49041149) Degenerative disc disease, cervical (M50.30) Active confirmed Problem Chronic pain (01786016) Other chronic pain (G89.29) Active confirmed Problem Obstructive sleep apnea syndrome (76183425) Obstructive sleep apnea syndrome (G47.33) Active confirmed Problem Carpal tunnel syndrome of right wrist (056582156228993) Carpal tunnel syndrome of right wrist (G56.01) Active confirmed Problem Uncomplicated mild persistent asthma (596455721) Mild persistent asthma without complication (J45.30) Active confirmed Problem Exacerbation of moderate persistent asthma (disorder) (615472762) Moderate persistent asthma with acute exacerbation (J45.41) Active confirmed Problem Mitral valve disorde r (32343173) Mitral valve insufficiency, unspecified etiology (I34.0) Active confirmed Problem Occlusion and stenosis of multiple and bilateral cerebral arteries (992005946) Bilateral carotid artery stenosis (I65.23) Active confirmed Problem Allergic rhinitis (14911162) Seasonal allergic rhinitis due to other allergic trigger (J30.89) Active confirmed Problem Aortic valve sclerosis (68689287) Aortic valve sclerosis (I35.8) Active confirmed Problem Pure hypercholesterolemia (334008246) Pure hypercholesterolemia (E78.00) Active confirmed Problem Benign prostatic hypertrophy without outflow obstruction (459465512) Benign prostatic hyperplasia without lower urinary tract symptoms (N40.0) Active confirmed Problem Right inguinal pain (92869650942498077) Right inguinal pain (R10.31) Active confirmed Problem Seasonal allergic rhinitis (951623249) Seasonal allergic rhinitis, unspecified trigger (J30.2) Active confirmed Problem Degenerative lumbar spinal stenosis (554178868) Degenerative lumbar spinal stenosis (M48.061) Active confirmed Vital Signs Heart Rate 79 /min 11/19/2024 Blood pressure diastolic 80 mm Hg 11/19/2024 Height 69 in 11/19/2024 Blood pressure systolic 114 mm Hg 11/19/2024 Weight 180.8 lbs 11/19/2024 BMI 26.7 kg/m2 11/19/2024 Encounters Encounter Location Date Provider Diagnosis [facility] [facility] [address] [place], [place] [id number] 03/14/2024 Humberto [place] Acute cough R05.1 [facility] [facility] [address] [place], [place] [id number] 03/22/2024 Marsha Crowdy Nasal sore J34.89 ; Nasal bleeding R04.0 and Parotid swelling R60.9 [facility] [facility] [address] [place], [place] [id number] 03/29/2024 Marsha Crowdy Nasal sore J34.89 ; Nasal bleeding R04.0 ; Parotid swelling R60.9 and Nasal swelling R22.0 [facility] [facility] [address] [place], [place] [id number] 06/22/2024 Marsha Crowdy Neck muscle spasm M6 2.838 [facility] [address] [place] [id number] 07/07/2024 Humberto [place] Lumbago with sciatic a, right side M54.41 ; Other chronic pain G89.29 ; Degenerative lumbar spinal stenosis M48.061 ; Lumbar facet arthropathy M47.816 and Degeneration of intervertebral disc of lumbar region with discogenic back pain and lower extremity pain M51.362 [facility] [address] [place] [id number] 07/26/2024 Lane Rodriguez Pure hypercholestero lemia E78.00 and Status post mitral valve repair Z98.890 [facility] [address] [place] [id number] 11/19/2024 Lane Rodriguez Status post mitral v alve repair Z98.890 ; Lumbago with sciatica, right side M54.41 ; Memory loss R41.3 ; Other chronic pain G89.29 ; Seasonal allergic rhinitis, unspecified trigger J30.2 ; Obstructive sleep apnea syndrome G47.33 ; Paroxysmal atrial fibrillation I48.0 and BMI 26.0-26.9,adult Z68.26 [facility] [address] [place] [id number] 07/02/2024 Lane Rodriguez Degenerative disc di sease, cervical M50.30 [facility] [address] [place] [address] [place] [id number] 10/12/2024 Lane Rodriguez Assessments Encounter Date Diagnosis (ICD Code) Assessment Notes Treatment Notes Treatment Clinical Notes Section Notes 03/14/2024 Acute cough (ICD-10 - R05.1) 03/22/2024 Nasal sore (ICD-10 - J34.89) 03/22/2024 Nasal bleeding (ICD- 10 - R04.0) Will use nasal saline and apply the mupirocin to get the sore/scab to heal. Likely from having oxygen while in the hospital. 03/29/2024 Nasal sore (ICD-10 - J34.89) 03/29/2024 Nasal bleeding (ICD- 10 - R04.0) Has improved. Has not had a bleed in 2 days. left naris still swollen. 06/22/2024 Neck muscle spasm (ICD-10 - M62.838) Patient was on muscle relaxants after his heart surgery but has not been on any since that time. Will refill the methocarbamol and start on a steroid dosepack. 07/02/2024 Degenerative disc disease, cervical (ICD-10 - M50.30) 07/07/2024 Lumbago with sciatic a, right side (ICD-10 - M54.41) 07/07/2024 Other chronic pain (ICD-10 - G89.29) 07/26/2024 Pure hypercholesterolemia (ICD-10 - E78.00) 07/26/2024 Status post mitral valve repair (ICD-10 - Z98.890) 11/19/2024 Lumbago with sciatic a, right side (ICD-10 - M54.41) 11/19/2024 Status post mitral valve repair (ICD-10 - Z98.890) 11/19/2024 Memory loss (ICD-10 - R41.3) 07/07/2024 Degenerative lumbar spinal stenosis (ICD-10 - M48.061) 03/29/2024 Parotid swelling (ICD-10 - R60.9) 03/22/2024 Parotid swelling (ICD-10 - R60.9) 03/29/2024 Nasal swelling (ICD- 10 - R22.0) 07/07/2024 Lumbar facet arthropathy (ICD-10 - M47.816) 11/19/2024 Other chronic pain (ICD-10 - G89.29) 11/19/2024 Seasonal allergic rhinitis, unspecified trigger (ICD-10 - J30.2) 07/07/2024 Degeneration of intervertebral disc of lumbar region with discogenic back pain and lower extremity pain (ICD-10 - M51.362) 11/19/2024 Obstructive sleep ap derek syndrome (ICD-10 - G47.33) 11/19/2024 Paroxysmal atrial fibrillation (ICD-10 - I48.0) 11/19/2024 BMI 26.0-26.9,adult (ICD-10 - Z68.26) Plan Of Treatment Next Appt Details Provider Name:Lane stack, 05/20/2025 10:15:00 AM, [address], [place], [id number], Insurance Providers Payer Name Payer Address Payer Phone Subscriber Number Group Number Insured Name Patient Relationship to Insured Coverage Start Date Coverage End Date MEDICARE PART B [address] [address] [place] [id number] JORGE ALBERTO WHITE Self - patient is the insured [facility] [address] [place] [address] [id number] JORGE ALBERTO WHITE Self - patient is the insured Medical (General) History Medical History History ICD Code Sleep Apnea Mitral Valve Prolapse - Dr. Law Fx Ribs, Collar Bone Injury Thrown by Co w Back Pain- Dr. Cat Arthritis LT Torn Rotator Cuff Allergies Asthma low back pain, MRI 2020 Lumbar Disc Disease Lumbar facet arthropathy Spinal Stenosis Surgical History Surgery Date(Month/Year) Hernia Repair 1985 Open Heart Surgery, Mitral Valve Repair 02/28/2024
[2025-01-30 09:31] VITALS: BP 113/68; PULSE 73; RESP 12; O2SAT 96; BMI 25.8
--- NOTE | 2025-01-30 09:34 | EXP.PAIN.SOA ---
[facility] Disclaimer: The information contained in this section may have been updated after the patient was seen, as this information can be updated by other users. Medical History PAF (paroxysmal atrial fibrillation) Swelling of left parotid gland Atypical angina Carotid artery stenosis Ascending aorta dilation Severe mitral regurgitation Abnormal findings on diagnostic imaging of heart and coronary circulation Abnormal electrocardiogram [ECG] [EKG] Hyperlipidemia Fatigue Mitral regurgitation Abdominal bruit Aortic root dilatation Dyspnea on exertion Carotid bruit Cardiac murmur History of abdominal hernia Mild mitral valve prolapse BLANCA (obstructive sleep apnea) Surgical History Status post mitral valve annuloplasty S/P left atrial appendage ligation History of adenoidectomy History of open heart surgery Hx of thumb surgery History of colonoscopy History of tonsillectomy History of inguinal hernia repair History of repair of anterior cruciate ligament of left knee Family History Other Aneurysm Coronary artery disease Diabetes Hyperlipidemia Hypertension Social History Smoking Status: Never smoker alcohol intake: never substance use type: denies use current occupational status: other Travel in the last 8 weeks?: None household members: spouse housing: house lives independently: No marital status: education level: college service: No current occupational exposures/hazards: Yes caffeine: Yes do you feel safe at home: Yes victim of physical abuse: No victim of emotional abuse: No victim of sexual abuse: No would you like helpful sources: No Have you lived/traveled outside US in past 30 days?: No Contact w/someone who lives/traveled outside US past 30 days?: No Exposure to someone with infectious disease in past 14 days?: No Do you have a fever (greater than 100.4 F or 38 C)?: No Have you tested positive for COVID-19?: No Exposed to someone with COVID-19 in past 14 days?: No Do you have a sore throat?: No Do you have a cough?: No Do you have any weakness?: No Do you have any diarrhea?: No Are you experiencing any unusual bleeding?: No Do you have any muscle aches/pain?: No Do you have any abdominal pain?: No Are you experiencing loss of taste or smell?: No PM Subjective & Objective Subjective Subjective:: Patient is a pleasant 69-year-old male who presents today for follow-up of bilateral bursa injections on 01/08/2025. Patient rates his pain today at a 5 out of 10. He does state that the injections he believes were helpful however it does still vary day-to-day. He states certain days he notices significant improvement and then other days it still hard for him to get up and move due to the worsening pains. Patient is still complaining of increased issues into his legs when he has been up walking for longer periods and does have to stop and take a break. Patient was still in the process of getting approved for the minimally invasive lumbar decompression procedure. Patient does state that he has not heard any updates on this. His Damon has been reviewed and is appropriate. Review of Systems: General: No recent weight changes, no fever, no sleep disturbances Respiratory: No cough, no shortness of air, no recurring pulmonary infections Cardiovascular/peripheral vascular: No chest pain, no palpitations, no edema, no shortness of breath Gastrointestinal: No new onset incontinence, normal bowel movements reported Genitourinary: No new onset incontinence Musculoskeletal: Low back pain, bilateral hip pain, leg pain Psychiatric: [Normal mood/affect] Neurological: [Denies weakness in extremities], [denies balance issues] Pain at rest (0-10 scale): 5 Objective Objective:: Physical Exam: General: Alert and oriented x3, no acute distress, pleasant and cooperative Lungs: Respirations even and unlabored, symmetrical chest expansion Eyes: PERRL Musculoskeletal: Flexion and extension of lumbar [spine] somewhat guarded secondary to pain, [antalgic gait noted] Neurological: Speech clear, no gross sensory deficit Has patient had previous pain injection?: Yes Percent improvement in pain since last injection: Moderate Conservative treatment options previously tried: Home exercise plan Length of treatment: Longer than 12 weeks Meds Home Medications and Allergies Home Medications ?Medication ?Instructions ?Recorded ?Confirmed ?Type aspirin 81 mg tablet,delayed 81 mg PO DAILY preventative 12/22/20 01/30/25 History release coenzyme Q10 400 mg capsule 400 mg PO DAILY Supplement 08/12/21 01/30/25 History fexofenadine 180 mg tablet 180 mg PO DAILY . 08/12/21 01/30/25 History montelukast 10 mg tablet 10 mg PO DAILY allergies 08/12/21 01/30/25 History rosuvastatin 20 mg tablet 20 mg PO DAILY Cholesterol 08/12/21 01/30/25 History fluticasone furoate 100 1 inh inhalation DAILY 01/06/24 01/30/25 History mcg-vilanterol 25 mcg/dose inhalation powder (Breo Ellipta) metoprolol tartrate 25 mg tablet 12.5 mg PO BID 04/02/24 01/30/25 History albuterol sulfate 90 mcg/actuation 1 puff inhalation ONCE PRN . 12/20/24 01/30/25 History aerosol inhaler New Prescriptions to Start Prescriptions: Allergies Allergy/AdvReac Type Severity Reaction Status Date / Time morphine Allergy Mild rash Verified 01/03/25 11:23 codeine Allergy Vomiting Verified 01/03/25 11:23 Assessment and Plan *Assessment and plan (1) Spinal stenosis of lumbar region with neurogenic claudication: Status: Chronic Category: Medical Code(s): M48.062 - Spinal stenosis, lumbar region with neurogenic claudication (2) Degenerative disc disease: Status: Acute Category: Medical (3) Low back pain: Status: Acute Category: Medical Code(s): M54.50 - Low back pain, unspecified Plan We did discuss at length multiple symptoms he has been experiencing and it all does relate to the spinal stenosis with neurogenic claudication symptoms. I do believe he is still a very beneficial candidate of the lumbar decompression. Patient did have a epidural with epidurogram that did also show he would be a very beneficial candidate of this surgical procedure. Patient was counseled that I will reach out to our furniture manager here at this office and see if we can get an update where we are at with the approval for the lumbar decompression of L3-L4, L4-L5. Patient agrees with this plan of care. We did staff genetic counselor him that we will call him with an update. patient has been instructed to contact the clinic with any concerns before the next appointment. Dr. Luna has reviewed this note and agrees with this plan of care. This note was dictated using voice recognition software and make contain errors or omissions. All injections are used with Lidocaine, Bupivacaine and dexamethasone. Occasionally urine drug screen is needed to verify patient's compliance with our office pain contract. This is ordered based off specific treatments related to chronic pain with the potential to abuse certain medications.
== END 2025-01-30 23:59 | disposition home or self-care (01) ==
LOC: SC.PAIN 08:46
PROVIDERS: PCP Family Medicine; Visit Provider Nurse Practitioner Family
DX: M54.50 Low back pain, unspecified (principal); M48.062 Spinal stenosis, lumbar region with neurogenic claudication
CPT/HCPCS: 99212; G0463

== ENCOUNTER 2025-03-04 09:17 | Outpatient (POV) | payer MEDICARE, BC, SELFPAY ==
--- OUTSIDE RECORDS SUMMARY | 2024-07-07 05:30 | XMS_ITS ---
[facility] Address [facility] [address] [id number] Care Team Providers Care Fur Liner Name Role Phone Lane Rodriguez Primary Care Provider [phone] Humberto Enamorado Unavailable [phone] Allergies Allergen (clinical drug ingredient) Drug/Non Drug Allergy documented on EMR Reaction Allergy Type Onset Date Status ibuprofen Advil excessive bleeding Drug Allergy Active Reason For Referral Reason Please use [facility] Diagnosis 1 Lumbago with sciatic a, right side (M54.41) [facility] Referring Provider First Name Humberto Referring Provider Last Name Kelsea Referring Provider Speciality Family Pra ctice Referred Provider Physical Therapy, . Referred Provider Specialty Physical The rapist General Notes Crista Burrell 024 9:11:45 AM > faxed to [facility] PT Referral Priority Routine REASON FOR VISIT hip and back pain Medications Medication SIG (Take, Route, Frequency, Duration) Notes Start Date End Date Status Metoprolol Tartrate 25 MG 1 tablet with food Orally Twice a day; Duration: 90 days Active Mupirocin 2 % 1 application Externally Twice a day Not-Takin g Amiodarone HCl 200 MG 1 tablet Orally On ce a day; Duration: 30 day(s) Not-Taking Methocarbamol 500 MG 1 tablet Orally thr ee times a day as needed; Duration: 30 day(s) Active Fexofenadine HCl 180 MG TAKE 1 TABLET BY MOUTH EVERY DAY; Duration: 90 Active Albuterol Sulfate HFA 108 (90 Base) MCG/ACT 2 inhalations Inhalation four times a day as needed 07/28/2023 Active Montelukast Sodium 10 MG TAKE 1 TABLET B Y MOUTH EVERY NIGHT AT BEDTIME; Duration: 90 Active Breo Ellipta 100-25 MCG/ACT INHALE 1 PUFF ONCE A DAY; Duration: 30 Active Rosuvastatin Calcium 20 MG TAKE 1 TABLET BY MOUTH EVERY NIGHT AT BEDTIME; Duration: 90 Active valACYclovir HCl 500 MG 1 tab(s) orally Three times a day Active Aspirin 81 MG 1 tab(s) orally once a day; Duration: 30 day(s) 05/14/2020 Active Acetaminophen 325 MG 1 tablet as needed Orally every 6 hrs Active CoQ10 200 MG as directed orally o nce a day; Duration: 30 day(s) 05/11/2021 Active CPAP SUPPLIES DIRECTED 09/16/2020 Act hayley Problems Problem Type SNOMED Code ICD Code Onset Dates Problem Status W/U Status Risk Notes Problem Sciatica (82121119) Lumbago with sciatica, right side (M54.41) Active confirmed Problem Chronic pain (08260590) Other chronic pain (G89.29) Active confirmed Problem Degenerative lumbar spinal stenosis (181609252) Degenerative lumbar spinal stenosis (M48.061) Active confirmed Problem Arthropathy of lumbar facet joint (534475511) Lumbar facet arthropathy (M47.816) Active confirmed Vital Signs Blood pressure systolic 116 mm Hg 07/07/20 24 Blood pressure diastolic 78 mm Hg 024 Heart Rate 78 /min 07/07/2024 Height 69 in 07/07/2024 Weight 181.4 lbs 07/07/2024 BMI 26.79 kg/m2 07/07/2024 Encounters Encounter Location Date Provider Diagnosis [facility] [address] [place], [place] [id number] 07/07/2024 Humberto [place] Lumbago with sciatic a, right side M54.41 ; Other chronic pain G89.29 ; Degenerative lumbar spinal stenosis M48.061 ; Lumbar facet arthropathy M47.816 and Degeneration of intervertebral disc of lumbar region with discogenic back pain and lower extremity pain M51.362 Assessments Encounter Date Diagnosis (ICD Code) Assessment Notes Treatment Notes Treatment Clinical Notes Section Notes 07/07/2024 Lumbago with sciatica, right side (ICD-10 - M54.41) 07/07/2024 Other chronic pain (ICD-10 - G89.29) 07/07/2024 Degenerative lumbar spinal stenosis (ICD-10 - M48.061) 07/07/2024 Lumbar facet arthropathy (ICD-10 - M47.816) 07/07/2024 Degeneration of intervertebral disc of lumbar region with discogenic back pain and lower extremity pain (ICD-10 - M51.362) Plan Of Treatment Referrals Referral Date Details 07/07/2024 07/07/2024, Please u se [facility], . Physical Therapy Next Appt Details Follow Up: via phone to repo rt progress, Reason: Provider Name:Lane Motley er, 05/20/2025 10:15:00 AM, [address] [place] [facility] 36 [facility], [address] , [place], [place], [id number], Progress Notes * JORGE ALBERTO WHITE DDOB: [birth year] (69 yo M)Acc No.[id number]:07/07/2024 Progress Notes Patient: JORGE ALBERTO BISHOP Denice Provider: Tiffany Enamorado M.D. :1955 A ge:69 Y S ex:Male Date:07/07/2024 Address:[address] [place] [address], [place] [address] Pcp:Lane Rodriguez Subjective: * Chief Complaints: * 1 . Hip and back pain. * HPI: H ip/Thigh: 69 year old male presents with c/o hip pain r ight sided, with pain down the right leg. N ramirez: c/o pain P t presents today with c/o pain that had started in the neck about 6 weeks ago. Pt sts that the pain has gone down his back and now c/o pain in the lower back and right hip. Pt sts that the pain in the hip runs down into the right leg and sts that he has noticed that his right foot wants to slap down onto the floor instead of easily going down as his left foot does. * ROS: D ERMATOLOGY: no R maggy. n o H bryan. G ASTROENTEROLOGY: no N ausea. n o V omiting. U ROLOGY: no D ifficulty urinating. n o B lood in urine. * Medical History: S leep Apnea, Mitral Valve Prolapse - Dr. Law, Fx Ribs, Collar Bone Injury Thrown by Cow, Back Pain- Dr. Cat, Arthritis, LT Torn Rotator Cuff, Allergies, Asthma, low back pain, MRI 2020, Lumbar Disc Disease, Lumbar facet arthropathy, Spinal Stenosis. * Surgical History: H ernia Repair 1985, Open Heart Surgery, Mitral Valve Repair 02/28/2024. * Family History: F ather: , diagnosed with Mental Illness, Diabetes, Hypertension, Heart Disease. M other: . M aternal aunt: diagnosed with Mental Illness. 1 brother(s) , 1 sister(s) - healthy. 1 son(s) , 1 daughter(s) - healthy. . Pt father had dementia and Pt maternal aunt from Alzheimer's. * Social History: C URRENT TOBACCO USE: No . M arital Status: . * Medications: T aking Acetaminophen 325 MG Tablet 1 tablet as [...] TABLET BY MOUTH EVERY DAY , Taking Breo Ellipta 100-25 MCG/ACT Aerosol Powder Breath Activated INHALE 1 PUFF ONCE A DAY , Taking Montelukast Sodium 10 MG Tablet TAKE 1 TABLET BY MOUTH EVERY NIGHT AT BEDTIME , Taking Rosuvastatin Calcium 20 MG Tablet TAKE 1 TABLET BY MOUTH EVERY NIGHT AT BEDTIME , Taking Methocarbamol 500 MG Tablet 1 tablet Orally three times a day as needed , Taking Metoprolol Tartrate 25 MG Tablet 1 tablet with food Orally Twice a day , Not-Taking Amiodarone HCl 200 MG Tablet 1 tablet Orally Once a day , Not-Taking Mupirocin 2 % Ointment 1 application Externally Twice a day , Discontinued Medrol 4 MG Tablet Therapy Pack as directed orally daily , Medication List reviewed and reconciled with the patient * Allergies: A dvil: excessive bleeding . Objective: * Vitals: W t:181.4, Temp:97.4, BP:116/78, HR:78, Nurse:DOMINGA, Ht: 69, BMI:26.79. * Examination: G eneral Examination: General Appearance: N AD. L ower back: Straight leg raising test: n egative bilaterally. G ait: n ormal. Assessment: * Assessment: 1. L umbago with sciatica, right side - M54.41 (Primary) 2 . O ther chronic pain - G89.29 3 . D egenerative lumbar spinal stenosis - M48.061 ?4. L umbar facet arthropathy - M47.816 5 . D egeneration of intervertebral disc of lumbar region with discogenic back pain and lower extremity pain - M51.362 ? Plan: * Treatment: * Procedure Codes: G 2211 Complex e/m visit add on * Follow Up: v ia phone to report progress * Images: Billing Information: * Visit Code: 44922 Office Visit, Est Pt., Level 3. * Procedure Codes: G2211 Complex e/m visit add on. * Electronic signature of Millicent Enamorado MD on 03/04/2025 at 09:21 AM EDT Sign off status: Pending * Provider: Tiffany Enamorado M.D. Date: 1 09/07/2023 Generated for Juan claire/Olga/Aleshiaitting on: 0 03/04/2025 09:21 AM EDT History and Physical Notes * HPI (History of Present Illness) Category Sub-Category Detail Notes Category Not es Neck pain Pt presents toda y with c/o pain that had started in the neck about 6 weeks ago. Pt sts that the pain has gone down his back and now c/o pain in the lower back and right hip. Pt sts that the pain in the hip runs down into the right leg and sts that he has noticed that his right foot wants to slap down onto the floor instead of easily going down as his left foot does Hip/Thigh hip pain right sided, with pain down the right leg Examination Category Sub-Category Detail Notes Category Not es General Examination General Appearance: NAD Lower back Straight leg raising test: negative bilaterally Gait: normal Consultation Request Notes Referral Date Referring Provider Referred Provider Not es 07/07/2024 Humberto Enamorado Physical Therapy, . Zahida hyde [facility]
--- OUTSIDE RECORDS SUMMARY | 2024-07-26 11:45 | XMS_ITS ---
Author Organization 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 Name Role Phone Lane Rodriguez Primary Care Provider [phone] Allergies Allergen (clinical drug ingredient) Drug/Non Drug Allergy documented on EMR Reaction Allergy Type Onset Date Status ibuprofen Advil excessive bleeding Drug Allergy Active Results Component Value Reference Range Notes CBC Venipuncture (in house) Reviewed date:07/27/2024 10:07:45 AM Interpretation:Normal Performing Lab: Notes/Report: Normal wbc 4.6 3.5 - 10 lymph 17.7 15 - 50 mid 5.9 2 - 15 gran 76.4 35 - 80 rbc 5.22 3.5 - 5.5 hgb 14.6 11.5 - 16.5 hct 44.9 35 - 55 mcv 86.1 75 - 100 mch 28.0 25 - 35 mchc 32.6 31 - 38 platlet 211 100 - 400 P-Comprehensive Metabolic Pa fadia (CMP) Reviewed date:07/27/2024 10:07:45 AM Interpretation:Normal Performing Lab: Notes/Report: Test performed by [facility], [address] [facility] , [address], [place] [address] Louie Cagle MD, Crystal Report Developer CLIA: [id number] Sodium 136 135-145 mmol/L Potassium 4.5 3.5-5.3 mmol/L Chloride 103 97-108 mmol/L CO2 25 22-32 mmol/L Glucose 91 65-99 mg/dL BUN 12 8-23 mg/dL Creatinine 0.99 0.70-1.30 mg/dL Calcium 8.6 8.6-10.4 mg/dL eGFR by Creatinine 81 >59 mL/min/1.73m2 Protein 6.2 6.0-8.3 g/dL Albumin 4.1 3.5-5.3 g/dL Alkaline Phosphatase 66 40-129 IU/L ALT (SGPT) 18 <5-55 IU/L AST (SGOT) 17 <5-46 IU/L Bilirubin, Total 0.8 <0.2-1.2 mg/dL A/G Ratio 2.0 1.1-2.5 P-Lipid Panel Reviewed date:07/27/2024 10:07:45 AM Interpretation:Normal Performing Lab: Notes/Report: Test performed by [facility], [address] , [place] [address] Louie Cagle MD, Crystal Report Developer CLIA: [id number] Cholesterol 150 <200 mg/dL Triglycerides 84 <150 mg/dL HDL Cholesterol 58 >39 mg/dL Cholesterol / HDL Ratio 2.59 0.00-4.99 Ratio Non-HDL Cholesterol 92 <130 mg/dL LDL Cholesterol (Calculation) 75 <130 mg/dL LDL Cholesterol Levels* Less than [...] Results: 89 Units: mg/dL % Change: - Test Date: 07/26/2024 LDL Results: 75 Units: mg/dL % Change: -15% REASON FOR VISIT 6 month check needs labs for CT scan BUN,Creatnine & DFR, Needs flu vaccine Medications Medication SIG (Take, Route, Frequency, Duration) Notes Start Date End Date Status Breo Ellipta 100-25 MCG/ACT INHALE 1 PUFF ONCE A DAY; Duration: 30 Active Fexofenadine HCl 180 MG TAKE 1 TABLET BY MOUTH EVERY DAY; Duration: 90 Active Albuterol Sulfate HFA 108 (90 Base) MCG/ACT 2 inhalations Inhalation four times a day as needed 07/28/2023 Active valACYclovir HCl 500 MG 1 tab(s) orally Three times a day Active Montelukast Sodium 10 MG TAKE 1 TABLET B Y MOUTH EVERY NIGHT AT BEDTIME; Duration: 90 Active Aspirin 81 MG 1 tab(s) orally once a day; Duration: 30 day(s) 05/14/2020 Active CoQ10 200 MG as directed orally o nce a day; Duration: 30 day(s) 05/11/2021 Active CPAP SUPPLIES DIRECTED 09/16/2020 Act hayley Mupirocin 2 % 1 application Externally Twice a day Not-Takin g Acetaminophen 325 MG 1 tablet as needed Orally every 6 hrs Active Amiodarone HCl 200 MG 1 tablet Orally On ce a day; Duration: 30 day(s) Not-Taking Metoprolol Tartrate 25 MG 1 tablet with food Orally Twice a day; Duration: 90 days Active Methocarbamol 500 MG 1 tablet Orally thr ee times a day as needed; Duration: 30 day(s) Not-Taking Rosuvastatin Calcium 20 MG TAKE 1 TABLET BY MOUTH EVERY NIGHT AT BEDTIME; Duration: 90 Active Vital Signs Blood pressure systolic 120 mm Hg 07/26/19 25 Blood pressure diastolic 80 mm Hg 025 Heart Rate 81 /min 07/26/2024 Height 69 in 07/26/2024 Weight 185.8 lbs 07/26/2024 BMI 27.43 kg/m2 07/26/2024 Encounters Encounter Location Date Provider Diagnosis [facility] [facility] 36 [facility] [address] [place] [id number] 07/26/2024 [address] Rodriguez Pure hypercholestero lemia E78.00 and Status post mitral valve repair Z98.890 Assessments Encounter Date Diagnosis (ICD Code) Assessment Notes Treatment Notes Treatment Clinical Notes Section Notes 07/26/2024 Pure hypercholesterolemia (ICD-10 - E78.00) 07/26/2024 Status post mitral v alve repair (ICD-10 - Z98.890) Plan Of Treatment Next Appt Details Follow Up: 3 Months, Reason: Provider Name:Lane Motley er, 05/20/2025 10:15:00 AM, [address] [facility] 36 [facility], [address], [place], [id number], Progress Notes * JORGE ALBERTO WHITE DDOB: [birth year] (69 yo M)Acc No.[id number]:07/26/2024 Progress Notes Patient: JORGE ALBERTO BISHOP Provider: Lane Rodriguez M.D. :1955 A ge:69 Y S ex:Male Date:07/26/2024 Address:[address] [place] [address], [place] [address] Subjective: * Chief Complaints: * 1 . 6 month check needs labs for CT scan BUN,Creatnine & DFR. 2. Needs flu vaccine. * HPI: C ardiology: Had Mitral valvular repair in February after I referred him back to Cardiology for follow-up on valvular heart disease. Dr. Ha, Vascular surgeon at performed repair. Also is being followed for aortic aneurysm, ascending. 4.5cm The patient is here for a check up. Pt states he is doing good except for the back pain. Pt states he is seeing pain management and is scheduled for an injection pending insurance coverage. Pt rates his pain about 9/10 at times. Pt states he is not fasting. Denies : Chest Pain. D enies : [...] Heart Surgery, Mitral Valve Repair 02/28/2024. * Hospitalization/Major Diagno stic Procedure: D enies [...] MOUTH EVERY NIGHT AT BEDTIME , Taking Metoprolol Tartrate 25 MG Tablet 1 tablet with food Orally Twice a day , Not-Taking Methocarbamol 500 MG Tablet 1 tablet Orally three times a day as needed , Not-Taking Amiodarone HCl 200 MG Tablet 1 tablet Orally Once a day , Not-Taking Mupirocin 2 % Ointment 1 application Externally Twice a day , Medication List reviewed and reconciled with the patient * Allergies: A dvil: excessive bleeding . Objective: * Vitals: W t:185.8, Temp:97.8, BP:120/80, HR:81, Nurse:CORTNEY, Ht: 69, BMI:27.43. * Examination: G eneral Examination: General Appearance: N AD. H EENT: u nremarkable.?Oral cavity: n o lesions, mucosa moist and WNL, no erythema. N ramirez: s upple, no lymphadenopathy. C hest: n ormal shape and expansion. H eart: R SR, midsystolic click, but the previous mitral murmur is absent. L ungs: c lear to auscultation. A bdomen: soft and nontender, no organomegaly or masses. N eurologic Exam: I ntact, gait normal. S kin: n ormal, no rash. P eripheral pulses: n ormal . B ack: normal, mild dorsal kyphosis. E xtremities: n o leg edema. Assessment: * Assessment: 1. P ure hypercholesterolemia - E78.00 (Primary) 2 . S tatus post mitral valve repair - Z98.890 Plan: * Treatment: Value Reference Range A /G Ratio 2.0 1.1-2.5 - * A lbumin 4.1 3.5-5.3 - g/dL * A lkaline Phosphatase 66 40-129 - IU/L * A LT (SGPT) 18 <5-55 - IU/L * A ST (SGOT) 17 <5-46 - IU/L * B ilirubin, Total 0.8 <0.2-1.2 - mg/dL * B UN 12 8-23 - mg/dL * C alcium 8.6 8.6-10.4 - mg/dL * C hloride 103 97-108 - mmol/L * C O2 25 22-32 - mmol/L * C reatinine 0.99 0.70-1.30 - mg/dL * G lucose 91 65-99 - mg/dL * P otassium 4.5 3.5-5.3 - mmol/L * S odium 136 135-145 - mmol/L * P rotein 6.2 6.0-8.3 - g/dL * e GFR by Creatinine 81 >59 - mL/min/1.73m2 * Dee Go 07/27/2024 10: 07:31 AM >Patient informed of normal results. ?LAB: P-Lipid Panel (Collection Date & Time - 07/26/2024 07:47 AM)?Normal* Value Reference Range C holesterol / HDL Ratio 2.59 0.00-4.99 - Ratio * C holesterol 150 <200 - mg/dL * H DL Cholesterol 58 >39 - mg/dL * L DL Cholesterol (Calculation) 75 <130 - mg/d L * L DL/HDL Ratio 1.3 <3.3 - Ratio * N on-HDL Cholesterol 92 <130 - mg/dL * T riglycerides 84 <150 - mg/dL * Dee oG 07/27/2024 10: 07:31 AM >Patient informed of normal results. ?LAB: CBC Venipuncture (in house) (Collection Date & Time - 07/26/2024)? Normal* Value Reference Range w bc 4.6 3.5 - 10 * l ymph 17.7 15 - 50 * m id 5.9 2 - 15 * g ran 76.4 35 - 80 * r bc 5.22 3.5 - 5.5 * h gb 14.6 11.5 - 16.5 * h ct 44.9 35 - 55 * m cv 86.1 75 - 100 * m ch 28.0 25 - 35 * m chc 32.6 31 - 38 * p latlet 211 100 - 400 * Harriett Hughes 07/26/2024 10:02 :07 AM > Dee Go 07/27/2024 10:07:31 AM >Patient informed of normal results. * Procedure Codes: G 2211 Complex e/[place] [address] CBC WITH AUTO DIFF, 52604 VENIPUNCT, ROUTINE* * Follow Up: 3 Months * Images: Billing Information: * Visit Code: 97825 Office Visit, Est Pt., Level 4. * Procedure Codes: G2211 Complex e/[place]. [address] CBC WITH AUTO DIFF. 29427 VENIPUNCT, ROUTINE*. * Electronic signature of Lane Rodriguez MD on 03/04/2025 at 09:21 AM EDT Sign off status: Pending * Provider: Lane Rodriguez M.D. Date: 0 07/26/2024 Generated for Jaxoni dakotah/Olga/eTransmitting on: 0 03/04/2025 09:21 AM EDT History and Physical Notes * HPI (History of Present Illness) Category Sub-Category Detail Notes Category Not es Cardiology Short of Breath Chest Pain Palpitations Dizziness Examination Category Sub-Category Detail Notes Category Not es General Examination HEENT: unremarkable Heart: RSR, midsystolic cli ck, but the previous mitral murmur is absent Lungs: clear to auscultatio n Abdomen: soft and nontender, no organomegaly or masses Extremities: no leg edema General Appearance: NAD Skin: normal, no rash Neurologic Exam: Intact, gait normal Neck: supple, no lymphaden opathy Oral cavity: no lesions, mucosa m oist and WNL, no erythema Peripheral pulses: normal Back: normal, mild dorsal kyphosis Chest: normal shape and exp ansion
--- OUTSIDE RECORDS SUMMARY | 2024-11-19 07:30 | XMS_ITS ---
Author Organization [facility] Address [address] [phone] Care Team Providers Care Mica Plate Layer Hand Name Role Phone Lane Rodriguez Primary Care Provider Allergies Allergen (clinical drug ingredient) Drug/Non Drug Allergy documented on EMR Reaction Allergy Type Onset Date Status ibuprofen Advil excessive bleeding Drug Allergy Active Results Component Value Reference Range Notes P-Comprehensive Metabolic Pa fadia (CMP) Reviewed date:11/22/2024 11:43:52 AM Interpretation:Normal Performing Lab: Notes/Report: Test performed by [facility] [address] [place] [address] , [address], [place] [address] Louie Cagle MD, Die Press Operator CLIA: [id number] Sodium 140 135-145 mmol/L Potassium 5.1 3.5-5.3 [...] Status Risk Notes Problem Paroxysmal atrial fibrillation (718670859) Paroxysmal atrial fibrillation (I48.0) Active confirmed Vital Signs Blood pressure systolic 114 mm Hg 11/20/19 25 Blood pressure diastolic 80 mm Hg 025 Heart Rate 79 /min 11/19/2024 Height 69 in 11/19/2024 Weight 180.8 lbs 11/19/2024 BMI 26.7 kg/m2 11/19/2024 Encounters Encounter Location Date Provider Diagnosis [facility] [address] [place] [phone] 11/19/2024 Lane Rodriguez Status post mitral valve [...] Motley , 05/20/2025 10:15:00 AM, [address], [address] , [place], [place], [phone], Progress Notes * JORGE ALBERTO WHITE DDOB: [birth year] (69 yo M)Acc No.[id number]:11/19/2024 Progress Notes Patient: JORGE ALBERTO BISHOP Provider: Lane Rodriguez M.D. :1955 A ge:69 Y S ex:Male Date:11/19/2024 Address:[address] [place] [address], [place] [address] Subjective: * Chief Complaints: * 1 . [...] atrial fibrillation - I48.0 8 . B [place] 26.0-26.9,adult - Z68.26 ? Plan: * Treatment: [...] * Images: Billing Information: * Visit Code: 30499 Office Visit, Est Pt., Level 4. * [...] 11/19/2024 Generated for Printi ng/Faemeraldg/eTransmitting on: 0 03/04/2025 09:21 AM EDT History [...]
--- OUTSIDE RECORDS SUMMARY | 2025-03-04 09:21 | XMS_ITS | Clinical Summary ---
Author Organization [facility] Address [address] 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 No 03/01/2024 Utilities Answer Date [...] Description 05/08/2025 11:15 AM EDT Office Visit [facility] [address], [facility] [address] [place] [address] Buddy Ruggiero MD [address] [place] [address] Health Maintenance Due Date Last Done Comments [facility]-Depression Screening 1955 [facility]-Hepatitis C Screening 1955 [facility]-Medicare Annual Wellness (AWV) 1955 [facility]-/Child/Adol SDOH Screenings 1955 [facility]- SDOH Screenings 1971 [facility]-Adult SDOH Screenings 1971 CT Colonography 1998 Colonoscopy 1998 FIT-DNA 1998 FIT 1998 FOBT 1998 Sigmoidoscopy 1998 [facility]-Colorectal Cancer Screening 1998 [facility]-RSV Vaccine: 60+ Years or (1 - Risk 60-74 years 1-dose series) 2013 [facility]-Zoster Vaccines (2 of 2) 07/10/2020 05/15/2020 [facility]-DTaP,Tdap,and Td Vaccines (1 - Tdap) 04/27/2022 04/26/2022 [id number] Vaccine (9 - 2023-25 season) 2024 04/28/2024, [...] this topic Medical Devices Implanted Type Area Time Study Technologist Device Identifier Shelf Expiration Date Model / Serial / Lot Ring Mitral Annuloplasty Physioflex 40mm - [id number] - [id number] Implanted:Qty: 1 on 02/28/2024 by Buddy Ruggiero MD at [facility]-[id number] 12/18/2024 [id number] / [id number] / [id number] Insurance MEDICARE ANTHEM Advance Directives Documents on File Type Date Recorded 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 Yes Care Teams Bass Guitar Teacher Relationship Specialty Start Date End Date Jamil Rodriguez MD [address] [facility], [facility] [address] [place] [address] PCP - General 02/20/24 Jamil Rodriguez MD [address] [place] [address] Referring Physician 02/20/24 Brandt [place] MD [address] [facility] [address] [place] [address] Referring Physician Cardiology 03/06/24
--- OUTSIDE RECORDS SUMMARY | 2025-03-04 09:21 | XMS_ITS | Clinical Summary ---
[facility] Address [address] [place] [address] Care Team Providers Care Bill Poster Installer Name Role Phone Jamil Rodriguez MD Primary Care Provider [phone] Medications gabapentin (NEURONTIN) 400 MG capsule Take 400 mg by mouth Daily. 2 02/21/2019 Active Immunizations Immunization Administration Dates Next Due Fluad Quad 65+ 04/26/2019 Social History Tobacco Use Types Packs/Day Years Used Date Smoking Tobacco: Never Assessed Abuse Screen Answer Date Recorded Unsafe at Home or Work/School Not on file Feels Threatened by Someone? Not on file 04/2023 Does Anyone Keep You from Co ntacting Others or Doint Things Outside the Home? Not on file 04/26/2023 Physical Sign of Abuse Present Not on file 1 Housing Stability Answer Date Recorded Current Living Arrangements Not on file 04/17 Potentially Unsafe Housing Conditions Not on aleks e 04/26/2023 Family and Community Support Answer Armando e Recorded Help with Day-to-Day Activities Not on file 04/26/2023 Lonely or Isolated Not on file 04/26/2023 Employment Answer Date Recorded Do you want help finding or keeping work or a carlyn b? Not on file 04/26/2023 Disabilities Answer Date Recorded Concentrating, Remembering, or Making Decisions Difficulty Not on file 04/26/2023 Doing Errands Independently Difficulty Not on fi le 04/26/2023 Education Answer Date Recorded Help with school or training? Not on file Preferred Language Not on file 04/26/2023 Sex and Gender Information Value Date Recorded Sex Assigned at Not on file Legal Sex Male 1:39 PM EDT Gender Identity Not on file Sexual Orientation Not on file Plan of Treatment Health Maintenance Due Date Last Done Comments TDAP/TD VACCINES (1 - Tdap) 1972 COLOGUARD 1998 COLON CANCER SCREENING 5 YEAR SIGMOIDOSCOPY 1998 COLONOSCOPY 1998 [address] CANCER SCREENING 1998 CT COLONOGRAPHY 1998 FECAL OCCULT BLOOD TEST 1998 FIT Testing (1 year) 1998 Pneumococcal Vaccine 50+ (1 of 1 - PCV) 2003 ZOSTER VACCINE (1 of 2) 2003 AAA SCREEN ONCE 2018 ANNUAL PHYSICAL 04/26/2019 HEPATITIS C SCREENING 04/26/2019 COVID-19 Vaccine ( season) 2024 INFLUENZA VACCINE 04/17/2025 04/26/2019 Insurance MEDICARE A & B Member Subscriber Plan / Payer (Ef fective 2018-Present) Name:Nabor Awan Member ID:[id number] Relation to Subscriber:Self Name:Nabor Awan Subscriber ID:[id number] Payer ID:[id number] Group ID:Not on file Type:Not on file Address: [address] Care Teams Bill Poster Installer Relationship Specialty Start Date End Date Jamil Rodriguez MD [address] [place] [address] PCP - General Family Medicine 02/11/21
--- OUTSIDE RECORDS SUMMARY | 2025-03-04 09:22 | XMS_ITS | Patient Health Record ---
Author Organization [facility] Address [address] [id number] Care Team Providers Care Chief Executive Name Role Phone Lane Rodriguez Primary Care Provider Humberto Enamorado Unavailable [phone] Marsha Thornton Unavailable [phone] Allergies Allergen (clinical drug ingredient) Drug/Non Drug [...] Interpretation:Normal Performing Lab: Notes/Report: Test performed by [employer], [facility] [address] [place] [address] , [address], [place] [address] Louie Cagle MD, Television Inspector CLIA: [id number] Sodium 136 135-145 mmol/L Potassium 4.5 3.5-5.3 [...] Interpretation:Normal Performing Lab: Notes/Report: Test performed by [employer], [address] , [address], [place] [address] Louie Cagle MD, Television Inspector CLIA: [id number] Cholesterol 150 <200 mg/dL Triglycerides 84 <150 [...] Results: 75 Units: mg/dL % Change: -15% CXR Reviewed date:03/16/2024 03:59:45 PM Interpretation:No pneumonia Performing Lab: Notes/Report: No pneumonia CBC Fingerstick (in house) Reviewed date:03/14/2024 04:19:40 [...] - 38 plat 434 100 - 400 P-Comprehensive Metabolic Pa fadia (CMP) Reviewed date:11/22/2024 11:43:52 AM Interpretation:Normal Performing Lab: Notes/Report: Test performed by [employer], [employer][note 3][address] [facility] , [address], [place] [address] Louie Cagle MD, Television Inspector CLIA: [id number] Sodium 140 135-145 mmol/L Potassium 5.1 3.5-5.3 [...] 0.8 <0.2-1.2 mg/dL A/G Ratio 1.9 1.1-2.5 CBC Fingerstick (in house) Reviewed date:03/22/2024 12:13:30 [...] 1 Parotid swelling (R6 0.9) Referral Organization [facility] Referring Provider First Name Marsha Referring Provider Last Name Norberto Referring Provider Speciality Physician Silica Spray Mixer Referred Provider ENT, . Referred Provider Specialty ENT General Notes Marsha Thornton 03/29 10:06:45 AM > Needs to see ENT Gilda KUMAR Shelia 03/29/2024 10:46:37 AM > referral faxed to ENT at [facility] Referral Priority Routine Diagnosis 1 Degenerative disc di sease, cervical (M50.30) Referral Organization Susie Referring Provider First Name Lane Tanner Referring Provider Last Name Michael Referring Provider Speciality Family Pra ctice Referred Provider Specialty Pain Managem ent General Notes Crista Burrell 024 12:25:45 PM > faxed to [facility] Pain Management, Crista Burrell 07/06/2024 9:14:47 AM > confirmed with office they received referral; calling today to set up appt Referral Priority Routine Reason Please use [facility] Diagnosis 1 Lumbago with sciatic a, right side (M54.41) Referral Organization [facility] Referring Provider First Name Humberto Referring Provider Last Name Kelsea Referring Provider Speciality Family Pra ctice Referred Provider Physical Therapy, . Referred Provider Specialty Physical The rapist General Notes Crista Burrell 024 9:11:45 AM > faxed to [facility] PT Referral Priority Routine Medications Medication SIG [...] a day; Duration: 30 day(s) 05/11/2021 Active Montelukast Sodium 10 MG 1 tablet Orally Once a day; Duration: 90 days Active Acetaminophen 325 MG 1 tablet as [...] ONCE A DAY; Duration: 30 days Active Immunizations Vaccine Route Administration Date Status Comme nts xFluzone High Dose-private (65yr&older) Unknown 04/28/2024 Administered Prevnar (PCV20) IM Intramuscular 11/17/2022 Administered Fluzone PF Quad (6-35 months) Unknown 04/15/2017 Administered Fluzone High Dose (65yr and older) Unknown 04/09/2020 Administered Fluzone High Dose (65yr and older) IM Intramuscular 2021 Administered Fluzone High Dose (65yr and older) IM Intramuscular 05/05/2022 Administered Fluzone High Dose (65yr and older) IM Intramuscular 05/03/2023 Administered COVID 19 Pfizer IM Intramuscular 09/10/2020 Administered COVID 19 Pfizer IM Intramuscular 10/04/2020 Administered COVID 19 Pfizer Unknown 04/20/2021 Administered COVID 19 Moderna Unknown 10/19/2021 Administered Shingrix Unknown 05/15/2020 Administered Problems Problem Type SNOMED Code ICD Code Onset Dates Problem Status W/U Status Risk Notes Problem Arthropathy of lumba r facet joint (992498247) Lumbar facet arthropathy (M47.816) Active confirmed Problem Obstructive sleep apnea (64616710) Obstructive sleep apnea (G47.33) Active confirmed Problem Paroxysmal atrial fibrillation (549107889) Paroxysmal atrial fibrillation (I48.0) Active confirmed Problem Memory loss (50058842) Memory loss (R41.3) Active confirmed Problem Sciatica (39745075) Lumbago with sciatica, right side (M54.41) Active confirmed Problem Chronic pain (08786943) Other chronic pain (G89.29) Active confirmed Problem Degeneration of cervical intervertebral disc (68675286) Degenerative disc disease, cervical (M50.30) Active confirmed Problem Chronic pain (93782337) Other chronic pain (G89.29) Active confirmed Problem Obstructive sleep apnea syndrome (42398131) Obstructive sleep apnea syndrome (G47.33) Active confirmed Problem Carpal tunnel syndrome of right wrist (386592361016876) Carpal tunnel syndrome of right wrist (G56.01) Active confirmed Problem Uncomplicated mild persistent asthma (376409441) Mild persistent asthma without complication (J45.30) Active confirmed Problem Exacerbation of moderate persistent asthma (disorder) (521706201) Moderate persistent asthma with acute exacerbation (J45.41) Active confirmed Problem Mitral valve disorde r (38313524) Mitral valve insufficiency, unspecified etiology (I34.0) Active confirmed Problem Occlusion and stenosis of multiple and bilateral cerebral arteries (393931992) Bilateral carotid artery stenosis (I65.23) Active confirmed Problem Allergic rhinitis (14837293) Seasonal allergic rhinitis due to other allergic trigger (J30.89) Active confirmed Problem Aortic valve sclerosis (12027971) Aortic valve sclerosis (I35.8) Active confirmed Problem Pure hypercholesterolemia (768024273) Pure hypercholesterolemia (E78.00) Active confirmed Problem Benign prostatic hypertrophy without outflow obstruction (045754905) Benign prostatic hyperplasia without lower urinary tract symptoms (N40.0) Active confirmed Problem Right inguinal pain (46781460909039130) Right inguinal pain (R10.31) Active confirmed Problem Seasonal allergic rhinitis (488586368) Seasonal allergic rhinitis, unspecified trigger (J30.2) Active confirmed Problem Degenerative lumbar spinal stenosis (383357085) Degenerative lumbar spinal stenosis (M48.061) Active confirmed Vital Signs Heart Rate 79 /min 11/19/2024 Blood pressure diastolic 80 mm Hg 11/19/2024 Height 69 in 11/19/2024 Blood pressure systolic 114 mm Hg 11/19/2024 Weight 180.8 lbs 11/19/2024 BMI 26.7 kg/m2 11/19/2024 Encounters Encounter Location Date Provider Diagnosis [facility] [facility] [facility] [address] [place], [place] [id number] 03/14/2024 Humberto Wayne Acute cough R05.1 [facility] [facility] [facility] [address] [place], [place] [id number] 03/22/2024 Marsha Crowdy Nasal sore J34.89 ; Nasal bleeding R04.0 and Parotid swelling R60.9 [facility] [facility] [facility] [address] [place], [place] [id number] 03/29/2024 Marsha Crowdy Nasal sore J34.89 ; Nasal bleeding R04.0 ; Parotid swelling R60.9 and Nasal swelling R22.0 [facility] [facility] [facility] [address] [place], [place] [id number] 06/22/2024 Marsha Crowdy Neck muscle spasm M6 2.838 [facility] [address] [facility] [address] [place] [id number] 07/07/2024 Humbetro Wayne Lumbago with sciatic a, right side M54.41 ; Other chronic pain G89.29 ; Degenerative lumbar spinal stenosis M48.061 ; Lumbar facet arthropathy M47.816 and Degeneration of intervertebral disc of lumbar region with discogenic back pain and lower extremity pain M51.362 [facility] [address] [place] [id number] 07/26/2024 Laen Rodriguez Pure hypercholestero lemia E78.00 and Status post mitral valve repair Z98.890 [facility] [address] [place] [id number] 11/19/2024 Lane Rodriguez Status post mitral v alve repair Z98.890 ; Lumbago with sciatica, right side M54.41 ; Memory loss R41.3 ; Other chronic pain G89.29 ; Seasonal allergic rhinitis, unspecified trigger J30.2 ; Obstructive sleep apnea syndrome G47.33 ; Paroxysmal atrial fibrillation I48.0 and BMI 26.0-26.9,adult Z68.26 [facility] [address] [place] [id number] 07/02/2024 Lane Rodriguez Degenerative disc di sease, cervical M50.30 [facility] [address] [place] [id number] 10/12/2024 Lane Rodriguez Assessments Encounter Date Diagnosis [...] [address], [address], [place], [id number], Insurance Providers Payer Name Payer Address Payer Phone Subscriber Number Group Number Insured Name Patient Relationship to Insured Coverage Start Date Coverage End Date MEDICARE PART B [address] [address] [place] [id number] JORGE ALBERTO WHITE Self - patient is the insured [facility] [address] [place] [address] [id number] [facility] JORGE ALBERTO WHITE Self - patient is the insured Medical (General) History Medical History History ICD Code Sleep Apnea Mitral Valve Prolapse - Dr. aLw Fx Ribs, Collar Bone Injury Thrown by Co w Back Pain- Dr. Cat Arthritis LT Torn Rotator Cuff Allergies Asthma low back pain, MRI 2020 Lumbar Disc Disease Lumbar facet arthropathy Spinal Stenosis Surgical History Surgery Date(Month/Year) Hernia Repair 1985 Open Heart Surgery, Mitral Valve Repair 02/28/2024
[2025-03-04 09:27] VITALS: BP 136/89; PULSE 63; RESP 16; O2SAT 96; BMI 26.6
--- NOTE | 2025-03-04 09:32 | EXP.PAIN.SOA ---
[facility] Disclaimer: The information contained in this section may have been updated after the patient was seen, as this information can be updated by other users. Medical History PAF (paroxysmal atrial fibrillation) Swelling of left parotid gland Atypical angina Carotid artery stenosis Ascending aorta dilation Severe mitral regurgitation Abnormal findings on diagnostic imaging of heart and coronary circulation Abnormal electrocardiogram [ECG] [EKG] Hyperlipidemia Fatigue Mitral regurgitation Abdominal bruit Aortic root dilatation Dyspnea on exertion Carotid bruit Cardiac murmur History of abdominal hernia Mild mitral valve prolapse BLANCA (obstructive sleep apnea) Surgical History Status post mitral valve annuloplasty S/P left atrial appendage ligation History of adenoidectomy History of open heart surgery Hx of thumb surgery History of colonoscopy History of tonsillectomy History of inguinal hernia repair History of repair of anterior cruciate ligament of left knee Family History Other Aneurysm Coronary artery disease Diabetes Hyperlipidemia Hypertension Social History Smoking Status: Never smoker alcohol intake: never substance use type: denies use current occupational status: other Travel in the last 8 weeks?: None household members: spouse housing: house lives independently: No marital status: education level: college service: No current occupational exposures/hazards: Yes caffeine: Yes do you feel safe at home: Yes victim of physical abuse: No victim of emotional abuse: No victim of sexual abuse: No would you like helpful sources: No Have you lived/traveled outside US in past 30 days?: No Contact w/someone who lives/traveled outside US past 30 days?: No Exposure to someone with infectious disease in past 14 days?: No Do you have a fever (greater than 100.4 F or 38 C)?: No Have you tested positive for COVID-19?: No Exposed to someone with COVID-19 in past 14 days?: No Do you have a sore throat?: No Do you have a cough?: No Do you have any weakness?: No Do you have any diarrhea?: No Are you experiencing any unusual bleeding?: No Do you have any muscle aches/pain?: No Do you have any abdominal pain?: No Are you experiencing loss of taste or smell?: No PM Subjective & Objective Subjective Subjective:: Patient is a pleasant 69-year-old male who presents today for worsening low back and leg pain. He rates it a 5 out of 10. He denies any new falls or injuries. He does state that it is still at constant aching, throbbing sensation that really affects his hips and will go into his legs. He states that it is typically worse with increased activity. He states even yesterday he had to ride the tractor for several hours and then when he got up and started moving around that he had a lot of difficulty even with simple movement and walking. Patient is still in the process of getting submitted for the minimally invasive lumbar decompression of L3-L4 L4-L5. Patient does state that he is still wanting to see about this procedure as nothing overall has changed. Patient states that some days are better than others. He does state that the pain does interfere with his ability perform activities of daily living such as cooking and cleaning. His Damon has been reviewed and is appropriate. Review of Systems: General: No recent weight changes, no fever, no sleep disturbances Respiratory: No cough, no shortness of air, no recurring pulmonary infections Cardiovascular/peripheral vascular: No chest pain, no palpitations, no edema, no shortness of breath Gastrointestinal: No new onset incontinence, normal bowel movements reported Genitourinary: No new onset incontinence Musculoskeletal: Low back pain, hip pain, leg pain Psychiatric: [Normal mood/affect] Neurological: [Denies weakness in extremities], [denies balance issues] Pain at rest (0-10 scale): 5 Objective Objective:: Physical Exam: General: Alert and oriented x3, no acute distress, pleasant and cooperative Lungs: Respirations even and unlabored, symmetrical chest expansion Eyes: PERRL Musculoskeletal: Flexion and extension of lumbar [spine] somewhat guarded secondary to pain, positive leg raise Neurological: Speech clear, no gross sensory deficit Has patient had previous pain injection?: No Conservative treatment options previously tried: Home exercise plan Length of treatment: Longer than 12 weeks Meds Home Medications and Allergies Home Medications ?Medication ?Instructions ?Recorded ?Confirmed ?Type aspirin 81 mg tablet,delayed 81 mg PO DAILY preventative 12/22/20 03/04/25 History release coenzyme Q10 400 mg capsule 400 mg PO DAILY Supplement 08/12/21 03/04/25 History fexofenadine 180 mg tablet 180 mg PO DAILY . 08/12/21 03/04/25 History montelukast 10 mg tablet 10 mg PO DAILY allergies 08/12/21 03/04/25 History rosuvastatin 20 mg tablet 20 mg PO DAILY Cholesterol 08/12/21 03/04/25 History fluticasone furoate 100 1 inh inhalation DAILY 01/06/24 03/04/25 History mcg-vilanterol 25 mcg/dose inhalation powder (Breo Ellipta) metoprolol tartrate 25 mg tablet 12.5 mg PO BID 04/02/24 03/04/25 History albuterol sulfate 90 mcg/actuation 1 puff inhalation ONCE PRN . 12/20/24 03/04/25 History aerosol inhaler New Prescriptions to Start Prescriptions: Allergies Allergy/AdvReac Type Severity Reaction Status Date / Time morphine Allergy Mild rash Verified 01/03/25 11:23 codeine Allergy Vomiting Verified 01/03/25 11:23 Assessment and Plan *Assessment and plan (1) Low back pain: Status: Acute Category: Medical Code(s): M54.50 - Low back pain, unspecified (2) Degenerative disc disease: Status: Acute Category: Medical (3) Spinal stenosis of lumbar region with neurogenic claudication: Status: Chronic Category: Medical Code(s): M48.062 - Spinal stenosis, lumbar region with neurogenic claudication (4) Lumbar radiculopathy: Status: Chronic Category: Medical Code(s): M54.16 - Radiculopathy, lumbar region Plan Patient is experiencing worsening pain in his low back with numbness and tingling into his lower extremities. Patient did have limited range of motion of his lumbar spine with a positive leg raise. I did discuss with patient that I do believe they would benefit from a lumbar epidural steroid injection. Risk and benefits were discussed with patient and the patient would like to proceed forward with this plan of care. Patient is not on any blood thinners. Patient has tried and failed conservative therapy including oral medications, heat and ice, topicals and continued at home stretching exercise for longer than 12 weeks between injections. Patient has had chronic back pain for longer than 6 months. Patient did previously have a lumbar epidural back in October that provided 90% relief and lasted longer than 3 months. We will schedule the patient for an LESI L4-L5 under fluoroscopy. I did curriculum counselor the patient that we are still trying to get approval for the lumbar decompression and we will reach out once we have an updated response from insurance. Patient agrees with this plan of care. Patient has been instructed to contact the clinic with any concerns before the next appointment. Dr. Luna has reviewed this note and agrees with this plan of care. This note was dictated using voice recognition software and make contain errors or omissions. All injections are used with Lidocaine, Bupivacaine and dexamethasone. Occasionally urine drug screen is needed to verify patient's compliance with our office pain contract. This is ordered based off specific treatments related to chronic pain with the potential to abuse certain medications.
== END 2025-03-04 23:59 | disposition home or self-care (01) ==
LOC: SC.PAIN 09:19
PROVIDERS: PCP Family Medicine; Visit Provider Nurse Practitioner Family
DX: M48.062 Spinal stenosis, lumbar region with neurogenic claudication (principal); M51.26 Other intervertebral disc displacement, lumbar region

== ENCOUNTER 2025-03-26 09:12 | Outpatient (CLI) | payer MEDICARE, BC, SELFPAY ==
--- OUTSIDE RECORDS SUMMARY | 2024-06-22 05:45 | XMS_ITS ---
Author Organization [facility] Address [address] [id number] Care Team Providers Care Store Lead Name Role Phone Lane Rodriguez Primary Care Provider [phone] Marsha Thornton Unavailable [phone] Allergies Allergen (clinical drug ingredient) Drug/Non Drug [...] 90 Active Mupirocin 2 % 1 application Electrical Tester Battery ally Twice a day Active Fexofenadine HCl [...] day; Duration: 30 day(s) Active Vital Signs Blood pressure systolic 100 mm Hg 06/22/20 24 Blood pressure diastolic 60 mm Hg 024 Heart Rate 86 /min 06/22/2024 Height 69 in 06/22/2024 Weight 181.2 lbs 06/22/2024 BMI 26.76 kg/m2 06/22/2024 Encounters Encounter Location Date Provider Diagnosis [facility] [address] [facility] 36 [facility] [address] [place] [id number] 06/22/2024 Marsha Thornton Neck muscle spasm M62.838 [...] Name:Lane Motley er, 05/20/2025 10:15:00 AM, 12[address] [facility] 36 [facility], [address], [place], [id number], Progress Notes * JORGE ALBERTO WHITE DDOB: [birth year] (69 yo M)Acc No.[id number]:06/22/2024 Progress Notes Patient: Rodrick JORGE ALBERTO Galdamez Provider: TENZIN Mejia :1955 A ge:69 Y S ex:Male Date:06/22/2024 Address:[address] [place] [address], [place] [address] Pcp:Lane Rodriguez Subjective: * Chief Complaints: * [...] * Images: Billing Information: * Visit Code: 43153 Office Visit, Est Pt., Level 3. * Procedure Codes: * Electronic signature of TENZIN Banuelos on 03/26/2025 at 09:23 AM EDT Sign off status: Pending * Provider: TENZIN Mejia Date: 1 08/23/2023 Generated for Juan claire/Olga/Madina on: 0 03/26/2025 09:23 AM EDT History and Physical Notes * [...]
--- OUTSIDE RECORDS SUMMARY | 2024-07-07 05:30 | XMS_ITS ---
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 Diagnosis 1 Lumbago with sciatic a, right side (M54.41) [facility] Referring Provider First Name Humberto Referring Provider Last Name Kelsea Referring Provider Speciality Family Pra ctice Referred Provider Physical Therapy, . Referred Provider Specialty Physical The rapist General Notes Crista Burrell 024 9:11:45 AM > faxed to [facility] PT Referral Priority Routine REASON FOR [...] Status W/U Status Risk Notes Problem Sciatica (01699324) Lumbago with sciatica, right side (M54.41) Active confirmed Problem Chronic pain (30665316) Other chronic pain (G89.29) Active confirmed Problem Degenerative lumbar spinal stenosis (814818720) Degenerative lumbar spinal stenosis (M48.061) Active confirmed Problem Arthropathy of lumbar facet joint (384179264) Lumbar facet arthropathy (M47.816) Active confirmed Vital Signs Blood pressure systolic 116 mm Hg 07/07/20 24 Blood pressure diastolic 78 mm Hg 024 Heart Rate 78 /min 07/07/2024 Height 69 in 07/07/2024 Weight 181.4 lbs 07/07/2024 BMI 26.79 kg/m2 07/07/2024 Encounters Encounter Location Date Provider Diagnosis [facility] [address] [place], [place] [id number] 07/07/2024 Humberto [place] Lumbago with sciatic a, right side M54.41 [...] Details 07/07/2024 07/07/2024, Please u se [facility], . Physical Therapy Next Appt Details Follow Up: via phone to repo rt progress, Reason: Provider Name:Lane Motley er, 05/20/2025 10:15:00 AM, [address] [facility] 36 [facility], [address] , [place], [place], [id number], Progress Notes * JORGE ALBERTO WHITE DDOB: [birth year] (69 yo M)Acc No.[id number]:07/07/2024 Progress Notes Patient: JORGE ALBERTO BISHOP Denice Provider: Tiffany Enamorado M.D. :1955 A ge:69 Y S ex:Male Date:07/07/2024 Address:[address] [place] [address], [place] [address] Pcp:Lane Rodriguez Subjective: * Chief Complaints: * [...] * Images: Billing Information: * Visit Code: 08121 Office Visit, Est Pt., Level 3. * Procedure Codes: G2211 Complex e/m visit add on. * Electronic signature of Millicent Enamorado MD on 03/26/2025 at 09:23 AM EDT Sign off status: Pending * Provider: Tiffany Enamorado M.D. Date: 1 09/07/2023 Generated for Juan claier/Olga/Aleshiaitting on: 0 03/26/2025 09:23 AM EDT History [...] [facility], . Zahida hyde [facility]
--- OUTSIDE RECORDS SUMMARY | 2024-07-26 11:45 | XMS_ITS ---
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 Range Operator Cloth Name Role Phone Lane Rodriguez Primary Care Provider [phone] Allergies Allergen (clinical drug ingredient) Drug/Non Drug [...] Interpretation:Normal Performing Lab: Notes/Report: Test performed by [facility], [facility]0 [facility] , [address], [place] [address] Louie Cagle MD, Garage Worker CLIA: [id number] Sodium 136 135-145 mmol/L Potassium 4.5 3.5-5.3 [...] Interpretation:Normal Performing Lab: Notes/Report: Test performed by [facility], [address] , [place] [address] Louie Cagle MD, Garage Worker CLIA: [id number] Cholesterol 150 <200 mg/dL Triglycerides 84 <150 [...] Encounter Location Date Provider Diagnosis [facility] 36 [facility] [address] [place] [id number] 07/26/2024 Lane Rodriguez Pure hypercholestero lemia E78.00 [...] Name:Lane Motley er, 05/20/2025 10:15:00 AM, 1210 [facility] 36 [facility], [address], [place], [id number], Progress Notes * JORGE ALBERTO WHITE DDOB: [birth year] (69 yo M)Acc No.[id number]:07/26/2024 Progress Notes Patient: JORGE ALBERTO BISHOP Provider: Lane Rodriguez M.D. :1955 A ge:69 Y S ex:Male Date:07/26/2024 Address:[address] [place] [address], [place] [address] Subjective: * Chief Complaints: * 1 . [...] G 2211 Complex e/[place], [address] CBC WITH AUTO DIFF, 48419 VENIPUNCT, ROUTINE* * Follow Up: 3 Months * Images: Billing Information: * Visit Code: 80206 Office Visit, Est Pt., Level 4. * Procedure Codes: G2211 Complex e/[place]. [address] CBC WITH AUTO DIFF. 75333 VENIPUNCT, ROUTINE*. * Electronic signature of Lane Rodriguez MD on 03/26/2025 at 09:23 AM EDT Sign off status: Pending * Provider: Lane Rodriguez M.D. Date: 0 07/26/2024 Generated for Jaxoni dakotah/Olga/eTransmitting on: 0 03/26/2025 09:23 AM EDT History [...]
--- OUTSIDE RECORDS SUMMARY | 2024-11-19 07:30 | XMS_ITS ---
Author Organization [facility] Address [address] [phone] Care Team Providers Care Thread Tool Grinder Set Up Operator Name Role Phone Lane Rodriguez Primary Care Provider [phone] Allergies Allergen (clinical drug ingredient) Drug/Non Drug Allergy documented on EMR Reaction Allergy Type Onset Date Status ibuprofen Advil excessive bleeding Drug Allergy Active Results Component Value Reference Range Notes P-Comprehensive Metabolic Pa fadia (CMP) Reviewed date:11/22/2024 11:43:52 AM Interpretation:Normal Performing Lab: Notes/Report: Test performed by [facility] [address] [place] [address] , [address], [place] [address] Louie Cagle MD, Ticketer CLIA: [id number] Sodium 140 135-145 mmol/L Potassium 5.1 3.5-5.3 [...] Status Risk Notes Problem Paroxysmal atrial fibrillation ([id number]) Paroxysmal atrial fibrillation (I48.0) Active confirmed Vital Signs Blood pressure systolic 114 mm Hg 11/20/19 25 Blood pressure diastolic 80 mm Hg 025 Heart Rate 79 /min 11/19/2024 Height 69 in 11/19/2024 Weight 180.8 lbs 11/19/2024 BMI 26.7 kg/m2 11/19/2024 Encounters Encounter Location Date Provider Diagnosis [facility] [address] [facility] [address] [place]ner[place] [phone] 11/19/2024 Lane Rodriguez Status post mitral valve [...] Motley , 05/20/2025 10:15:00 AM, [address], [address] , [place], [place], [phone], Progress Notes * JORGE ALBERTO WHITE DDOB: [birth year] (69 yo M)Acc No.[id number]:11/19/2024 Progress Notes Patient: JORGE ALBERTO BISHOP Provider: Lane Rodriguez M.D. :1955 A ge:69 Y S ex:Male Date:11/19/2024 Address:[address] [place] [address], [place] [address] Subjective: * Chief Complaints: * 1 . [...] atrial fibrillation - I48.0 8 . B HI 26.0-26.9,adult - Z68.26 ? Plan: * Treatment: [...] * Images: Billing Information: * Visit Code: 98438 Office Visit, Est Pt., Level 4. * Procedure Codes: G2211 Complex e/m visit add on. G8420 BMI<30 AND >=22 CALC & DOCU. 3074F SYST BP LT 130 MM HG. 3079F DIAST BP 80-89 MM HG. * Electronic signature of Lane Rodriguez MD on 03/26/2025 at 09:23 AM EDT Sign off status: Pending * Provider: Lane Rodriguez M.D. Date: 0 11/19/2024 Generated for Printi ng/Faemeraldg/eTransmitting on: 0 03/26/2025 09:23 AM EDT History [...]
[2025-03-26 09:20] VITALS: BMI 26.6
--- OUTSIDE RECORDS SUMMARY | 2025-03-26 09:26 | XMS_ITS | Clinical Summary ---
Author Organization [facility] Address [address] [place] [address] Care Team Providers Care Senior Shipping Clerk Name Role Phone Jamil Rodriguez MD Unavailable [phone] Jamil Rodriguez MD Primary Care Provider [phone] Brandt Burrell MD Unavailable [phone] Allergies Active Allergy Reactions Criticality Noted [...] and Family Not on file 03/01/2024 Attends [facility] Not on file 03/01 Active Member [...] Description 05/08/2025 11:15 AM EDT Office Visit [facility] [address], [facility] [address] [place] [address] Buddy Ruggiero MD [address] [place] [address] Health Maintenance Due Date Last [...] Td Vaccines (1 - Tdap) 04/27/2022 04/26/2022 [id number] Vaccine (9 - 2023-25 season) 2024 04/28/2024, [...] this topic Medical Devices Implanted Type Area Computer Recycling Worker Device Identifier Shelf Expiration Date Model / Serial / Lot Ring Mitral Annuloplasty Physioflex 40mm - [id number] - [id number] Implanted:Qty: 1 on 02/28/2024 by Buddy Ruggiero MD at [facility]-[id number] 12/18/2024 [id number] / [id number] / [id number] [place] [address] [employer] Advance Directives Documents on File Type Date Recorded Patient Central Supply Assistant Expl anation Advance Directives and Living Will 02/28/2024 Power of Rnp 02/28/2024 * Full Code (Latest Code Status on File) Date Activated Date Inactivated Comments 02/28/2024 2:51 PM 03/07/2024 2:05 PM Question Answer Comments Patient has decision-making capacity? Yes Care Teams Senior Shipping Clerk Relationship Specialty Start Date End Date Jamil Rodriguez MD [address] [facility] [address] [place] [address] PCP - General 02/20/24 Jamil Rodriguez MD [address] [place] [address] Referring Physician 02/20/24 Brandt Burrell MD [address] [facility] [address] [place] [address] Referring Physician Cardiology 03/06/24
--- OUTSIDE RECORDS SUMMARY | 2025-03-26 09:26 | XMS_ITS | Patient Health Record ---
Author Organization [facility] Address [address] [id number] Care Team Providers Care Ob Scrub Tech Name Role Phone Lane Rodriguez Primary Care Provider Humberto Enamorado Unavailable [phone] Marsha Thornton Unavailable [phone] Allergies Allergen (clinical drug ingredient) Drug/Non Drug [...] Interpretation:Normal Performing Lab: Notes/Report: Test performed by [facility], [place] [address] [place] [address] , [address], [place] [address] Louie Cagle MD, Dye Operator CLIA: [id number] Sodium 136 135-145 mmol/L Potassium 4.5 3.5-5.3 [...] Interpretation:Normal Performing Lab: Notes/Report: Test performed by [facility], [address] , [address], [place] [address] Louie Cagle MD, Dye Operator CLIA: [id number] Cholesterol 150 <200 mg/dL Triglycerides 84 <150 [...] Results: 75 Units: mg/dL % Change: -15% P-Comprehensive Metabolic Pa fadia (CMP) Reviewed date:11/22/2024 11:43:52 AM Interpretation:Normal Performing Lab: Notes/Report: Test performed by [facility] [address] , [address], [place] [address] Louie Cagle MD, Dye Operator CLIA: [id number] Sodium 140 135-145 mmol/L Potassium 5.1 3.5-5.3 [...] 1.9 1.1-2.5 CBC Fingerstick (in house) Reviewed date:03/29/2024 01:40:16 [...] 1 Parotid swelling (R6 0.9) [facility] Referring Provider First Name Marsha Referring Provider Last Name Norberto Referring Provider Speciality Physician Forestry Adviser Referred Provider ENT, . Referred Provider Specialty ENT General Notes Marsha Thornton 03/29 10:06:45 AM > Needs to see ENT Gilda KUMAR Shelia 03/29/2024 10:46:37 AM > referral faxed to ENT at [facility] Referral Priority Routine Diagnosis 1 Degenerative disc di sease, cervical (M50.30) [facility] Referring Provider First Name Lane Tanner Referring Provider Last Name Michael Referring Provider Speciality Family Pra ctnyla Referred Provider Specialty Pain Managem ent General Notes Crista Burrell 2023 12:25:45 PM > faxed to [facility] Pain Management, Crista Burrell 07/06/2024 9:14:47 AM > confirmed with office they received referral; calling today to set up appt Referral Priority Routine Reason Please use [facility] Diagnosis 1 Lumbago with sciatic a, right side (M54.41) [facility] Referring Provider First Name Humberto Referring Provider Last Name Kelsea Referring Provider Speciality Family Pra ctice Referred Provider Physical Therapy, . Referred Provider Specialty Physical The rapist General Notes Crista Burrell 024 9:11:45 AM > faxed to [facility] PT Referral Priority Routine Medications Medication SIG [...] Problem Arthropathy of lumba r facet joint (489689763) Lumbar facet arthropathy (M47.816) Active confirmed Problem Obstructive sleep apnea (41838723) Obstructive sleep apnea (G47.33) Active confirmed Problem Paroxysmal atrial fibrillation (817283649) Paroxysmal atrial fibrillation (I48.0) Active confirmed Problem Memory loss (92052797) Memory loss (R41.3) Active confirmed Problem Sciatica (97020461) Lumbago with sciatica, right side (M54.41) Active confirmed Problem Chronic pain (11847093) Other chronic pain (G89.29) Active confirmed Problem Degeneration of cervical intervertebral disc (62764693) Degenerative disc disease, cervical (M50.30) Active confirmed Problem Chronic pain (86549171) Other chronic pain (G89.29) Active confirmed Problem Obstructive sleep apnea syndrome (62818507) Obstructive sleep apnea syndrome (G47.33) Active confirmed Problem Carpal tunnel syndrome of right wrist (952596619042644) Carpal tunnel syndrome of right wrist (G56.01) Active confirmed Problem Uncomplicated mild persistent asthma (345884789) Mild persistent asthma without complication (J45.30) Active confirmed Problem Exacerbation of moderate persistent asthma (disorder) (469240299) Moderate persistent asthma with acute exacerbation (J45.41) Active confirmed Problem Mitral valve disorde r (24301536) Mitral valve insufficiency, unspecified etiology (I34.0) Active confirmed Problem Occlusion and stenosis of multiple and bilateral cerebral arteries (999341233) Bilateral carotid artery stenosis (I65.23) Active confirmed Problem Allergic rhinitis (03458532) Seasonal allergic rhinitis due to other allergic trigger (J30.89) Active confirmed Problem Aortic valve sclerosis (59230074) Aortic valve sclerosis (I35.8) Active confirmed Problem Pure hypercholesterolemia (895405356) Pure hypercholesterolemia (E78.00) Active confirmed Problem Benign prostatic hypertrophy without outflow obstruction (373633722) Benign prostatic hyperplasia without lower urinary tract symptoms (N40.0) Active confirmed Problem Right inguinal pain (06336454837579163) Right inguinal pain (R10.31) Active confirmed Problem Seasonal allergic rhinitis (737217594) Seasonal allergic rhinitis, unspecified trigger (J30.2) Active confirmed Problem Degenerative lumbar spinal stenosis (950307066) Degenerative lumbar spinal stenosis (M48.061) Active confirmed Vital Signs Heart Rate 79 /min 11/19/2024 Blood pressure diastolic 80 mm Hg 11/19/2024 Height 69 in 11/19/2024 Blood pressure systolic 114 mm Hg 11/19/2024 Weight 180.8 lbs 11/19/2024 BMI 26.7 kg/m2 11/19/2024 Encounters Encounter Location Date Provider Diagnosis [facility] [address] [facility] [address] [place] [id number] 03/29/2024 Marsha Thornton Nasal sore J34.89 ; Nasal bleeding R04.0 ; Parotid swelling R60.9 and Nasal swelling R22.0 [facility] [address] [facility] [address] [place] [id number] 06/22/2024 Marsha Thornton Neck muscle spasm M6 2.838 [facility] [address] [place] [id number] 07/07/2024 Humberto Sunflower Lumbago with sciatic a, right side M54.41 ; Other chronic pain G89.29 ; Degenerative lumbar spinal stenosis M48.061 ; Lumbar facet arthropathy M47.816 and Degeneration of intervertebral disc of lumbar region with discogenic back pain and lower extremity pain M51.362 [facility] [address] [place] [id number] 07/26/2024 Lane Rodriguez Pure hypercholestero lemia E78.00 and Status post mitral valve repair Z98.890 [facility] [address] [place] [id number] 11/19/2024 Lane Rodriguez Status post mitral v alve repair Z98.890 ; Lumbago with sciatica, right side M54.41 ; Memory loss R41.3 ; Other chronic pain G89.29 ; Seasonal allergic rhinitis, unspecified trigger J30.2 ; Obstructive sleep apnea syndrome G47.33 ; Paroxysmal atrial fibrillation I48.0 and BMI 26.0-26.9,adult Z68.26 [facility] [address] [place] [id number] 07/02/2024 Lane Rodriguez Degenerative disc di sease, cervical M50.30 [facility] [address] [facility] [address] [place] [id number] 10/12/2024 Lane Rodriguez Assessments Encounter Date Diagnosis [...] post mitral valve repair (ICD-10 - Z98.890) 03/29/2024 Nasal sore (ICD-10 - J34.89) 03/29/2024 Nasal bleeding (ICD- 10 - R04.0) Has improved. Has not had a bleed in 2 days. left naris still swollen. 03/29/2024 Parotid swelling (ICD-10 - R60.9) 11/19/2024 Memory loss (ICD-10 - R41.3) 07/07/2024 Degenerative lumbar spinal stenosis (ICD-10 - M48.061) 07/07/2024 Lumbar facet arthropathy (ICD-10 - M47.816) 03/29/2024 Nasal swelling (ICD- 10 - R22.0) 11/19/2024 Other chronic pain (ICD-10 - G89.29) [...] Of Treatment Next Appt Details Provider Name:Lane Yinradha er, 05/20/2025 10:15:00 AM, [address], [address], [place], [id number], Insurance Providers Payer Name Payer Address Payer Phone Subscriber Number Group Number Insured Name Patient Relationship to Insured Coverage Start Date Coverage End Date MEDICARE PART B [address] [address] [place] [id number] JORGE ALBERTO WHITE Self - patient is the insured [facility] [employer] [facility] [address] [place] [address] [id number] JORGE ALBERTO WHITE Self - [...]
--- OUTSIDE RECORDS SUMMARY | 2025-03-26 09:26 | XMS_ITS | Clinical Summary ---
[facility] Organization [facility] Address [address] [place] [address] Care Team Providers Care Knot Tier Name Role Phone Jamil Rodriguez MD Primary Care Provider [phone] Medications gabapentin (NEURONTIN) 400 MG capsule Take [...] C SCREENING 04/26/2019 COVID-19 Vaccine ( season) 2025 INFLUENZA VACCINE 04/17/2025 04/26/2019 Insurance MEDICARE A & B Member Subscriber Plan / Payer (Ef fective 2018-Present) Name:Nabor Awan Member ID:[id number] Relation to Subscriber:Self Name:Nabor Awan Subscriber ID:[id number] Payer ID:[id number] Group ID:Not on file Type:Not on file Address: [address] Care Teams Knot Tier Relationship Specialty Start Date End Date Jamil Rodriguez MD [address] [place] [address] PCP - General Family Medicine 02/11/21
[2025-03-26 10:01] LABS: Anion Gap 11.9 mEq/L (5-15); Blood Urea Nitrogen 15 mg/dl (9-20); Calcium 9.3 mg/dl (8.4-10.2); Carbon Dioxide 26 mmol/L (22.0-30.0); Chloride 104 mmol/L (98-107); Creatinine Clearance Estimated 78 mL/min (50-200); Creatinine,Serum 0.90 mg/dl (0.66-1.25); Estimated Glomerular Filt Rate 83 ml/min (>60); GFR (African American) 101 ML/MIN (>60); Glucose 147 mg/dl (74-100); Potassium 3.9 mmoL/L (3.5-5.1); Sodium 138 mmol/L (136-145)
[2025-03-26 10:09] LABS: Hematocrit 44.7 % (42.0-52.0); Hemoglobin 14.7 g/dL (14.1-18.0); Immature Granulocytes % 0.2 %; Mean Corpuscular HGB Conc 32.9 g/dL (31.8-35.4); Mean Corpuscular Hemoglobin 29.4 pg (27.0-31.2); Mean Corpuscular Volume 89.4 fl (80-94); Nucleated Red Blood Cells % 0 %; Platelet Count 169 K/mm3 (142-424); Red Blood Count 5.00 M/mm3 (4.60-6.20); Red Cell Distribution Width-SD 41.1 fL; White Blood Count 5.3 K/mm3 (4.8-10.8)
== END 2025-03-26 23:59 | disposition home or self-care (01) ==
LOC: PREOP 09:13
PROVIDERS: PCP Family Medicine; Visit Provider Anesthesiology
DX: Z01.812 Encounter for preprocedural laboratory examination (principal); Z01.818 Encounter for other preprocedural examination
CPT/HCPCS: 80048; 85025

== ENCOUNTER 2025-03-29 11:05 | Day surgery (SDC) | payer MEDICARE, BC, SELFPAY ==
[2025-03-26 13:10] VITALS: BMI 26.6
[2025-03-29 11:24] VITALS: BP 113/73; PULSE 74; RESP 18; TEMP 36.2; O2SAT 96
[2025-03-29] MEDS: LACTATED RINGERS 1000ML 1,000 ML 25 ML IV (11:37)
--- NOTE | 2025-03-29 14:03 | EXP.HP ---
History of Present Illness *Admission Date: 03/29/25 *Reason for visit:: Minimally invasive lumbar decompression bilateral L3-L4 and L4-L5 *History of present illness: This patient has lumbar spinal stenosis with neurogenic claudication symptoms. He presents for minimally invasive lumbar decompression today. [facility] Disclaimer: The information contained in this section may have been updated after the patient was seen, as this information can be updated by other users. Medical History PAF (paroxysmal atrial fibrillation) Swelling of left parotid gland Atypical angina Carotid artery stenosis Ascending aorta dilation Severe mitral regurgitation Abnormal findings on diagnostic imaging of heart and coronary circulation Abnormal electrocardiogram [ECG] [EKG] Hyperlipidemia Fatigue Mitral regurgitation Abdominal bruit Aortic root dilatation Dyspnea on exertion Carotid bruit Cardiac murmur History of abdominal hernia Mild mitral valve prolapse BLANCA (obstructive sleep apnea) Surgical History Status post mitral valve annuloplasty S/P left atrial appendage ligation History of adenoidectomy History of open heart surgery Hx of thumb surgery History of colonoscopy History of tonsillectomy History of inguinal hernia repair History of repair of anterior cruciate ligament of left knee Family History Other Aneurysm Coronary artery disease Diabetes Hyperlipidemia Hypertension Social History (Updated 03/29/25 @ 11:25 by Baylee Jones RN) Smoking Status: Never smoker alcohol intake: never substance use type: denies use current occupational status: employed Travel in the last 8 weeks?: None household members: spouse housing: house lives independently: No marital status: education level: college service: No current occupational exposures/hazards: Yes caffeine: Yes do you feel safe at home: Yes victim of physical abuse: No victim of emotional abuse: No victim of sexual abuse: No would you like helpful sources: No Have you lived/traveled outside US in past 30 days?: No Contact w/someone who lives/traveled outside US past 30 days?: No Exposure to someone with infectious disease in past 14 days?: No Do you have a fever (greater than 100.4 F or 38 C)?: No Have you tested positive for COVID-19?: No Exposed to someone with COVID-19 in past 14 days?: No Do you have a sore throat?: No Do you have a cough?: No Do you have any weakness?: No Are you experiencing any nausea/vomitting?: No Do you have any diarrhea?: No Are you experiencing any unusual bleeding?: No Do you have any muscle aches/pain?: No Do you have any abdominal pain?: No Are you experiencing loss of taste or smell?: No Other Medical History Have you received the Flu Vaccine for this season: Yes Have you received the Pneumonia Vaccine: Yes Review of Systems Review of Systems Review of systems:: pertinent systems reviewed and negative unless documented below Meds Home Medications and Allergies Home Medications ?Medication ?Instructions ?Recorded ?Confirmed ?Type aspirin 81 mg tablet,delayed 81 mg PO DAILY preventative 12/22/20 03/29/25 History release coenzyme Q10 400 mg capsule 400 mg PO DAILY Supplement 08/12/21 03/29/25 History fexofenadine 180 mg tablet 180 mg PO DAILY . 08/12/21 03/29/25 History montelukast 10 mg tablet 10 mg PO DAILY allergies 08/12/21 03/29/25 History rosuvastatin 20 mg tablet 20 mg PO DAILY Cholesterol 08/12/21 03/29/25 History fluticasone furoate 100 1 inh inhalation DAILY 01/06/24 03/29/25 History mcg-vilanterol 25 mcg/dose inhalation powder (Breo Ellipta) metoprolol tartrate 25 mg tablet 12.5 mg PO BID 04/02/24 03/29/25 History albuterol sulfate 90 mcg/actuation 1 puff inhalation ONCE PRN . 12/20/24 03/29/25 History aerosol inhaler New Prescriptions to Start Prescriptions: Allergies Allergy/AdvReac Type Severity Reaction Status Date / Time morphine Allergy Mild rash Verified 03/29/25 11:19 codeine Allergy Vomiting Verified 03/29/25 11:19 Exam Data for Last 24 hours Vital signs and Labs for Last 24 Hours: Temp Pulse Resp BP Pulse Ox O2 Del Method 97.2 F L 74 18 113/73 96 Room Air 03/29/25 11:24 03/29/25 11:24 03/29/25 11:24 03/29/25 11:24 03/29/25 11:03/29/25 11:24 I & O for Last 24 hours: Intake & Output 03/27/25 03/28/25 03/29/25 09/13/25 11:59 11:59 11:59 11:59 Weight 180 lb *Routine HEENT Exam Head: Present normocephalic Eye: Present EOMI ENT: Present mucous membranes moist *Routine Neck Exam Neck: Present supple and full ROM *Routine Respiratory Exam Respiratory: Present normal respiratory effort *Routine Cardiovascular Exam Cardiovascular: Present RRR, Normal S1 and Normal S2 *Routine Abdominal Exam Abdominal: Present soft *Routine Rectal Exam Rectal:: deferred *Routine Genitalia Exam Genitalia:: deferred Assessment and Plan *Assessment and plan (1) Spinal stenosis of lumbar region with neurogenic claudication: Status: Chronic Category: Medical Code(s): M48.062 - Spinal stenosis, lumbar region with neurogenic claudication Plan Minimally invasive lumbar decompression
[2025-03-29] MEDS: SODIUM CHLORIDE 0.9% 20ML VIAL 40 ML IV (14:31)
[2025-03-29] MEDS: LIDOCAINE 1% W/EPI 1:100,000 20ML VIAL 20 ML (14:31)
[2025-03-29] MEDS: GENTAMICIN 80 MG/2 ML VIAL (14:31)
[2025-03-29 15:01] VITALS: BP 114/66; PULSE 91; RESP 14; TEMP 36.2; O2SAT 96
[2025-03-29 15:11] VITALS: BP 105/66; PULSE 90; RESP 16; O2SAT 97
--- NOTE | 2025-03-29 15:18 | EXP.OP.NOTE ---
Date of procedure: 03/29/25 Pre-op Diagnosis:: Lumbar spinal stenosis with neurogenic claudication symptoms Post-op Diagnosis:: Same Procedure performed:: Minimally invasive lumbar decompression bilateral L3-L4 L4-L5 Surgeon:: Da Luna MD NET APPLICATIONS DEVELOPER:: John Paul Gilmore Anesthesia: MAC Estimated blood loss (mL): 2 Clinical Note:: The patient is a pleasant 69-year-old white male who we are treating for degenerative disease of lumbar spine with lumbar spinal stenosis and neurogenic claudication symptoms. He presents for minimally base of lumbar decompression bilateral L3-L4 and L4-L5 today. Operative findings:: None Operative note:: Informed consent was obtained and risks and benefits of the procedure was explained to the patient. The patient was taken to the operating room and placed prone on the procedure table. The patient was prepped and draped in sterile fashion. C-arm fluoroscopy was used to view the lumbar spine. The skin and subcutaneous tissues were anesthetized using lidocaine. A epidural needle was inserted and advanced into the L3-L4 interspace. After confirmation of needle placement in the epidural space, dye was injected in a contralateral oblique view. There was an epidurogram seen at L3-L4 and L4-L5. Significant stenosis was seen at L3-L4 and L4-L5. The skin and subcutaneous tissues again were anesthetized using lidocaine. An incision was made and a access trocar was inserted and advanced to contact at the superior aspect of the L4 lamina on the left side. And a contralateral oblique view the side was viewed. Using a bone rongeur and tissue sculptor we debulked bone from the L3-L4 and L4-L5 interspace on the left side. We then used the tissue sculptor to debulk ligament at the L3-L4 and L4-L5 interspace on the left side. We then moved over to the right side and debulked bone and ligament from L3-L4 and L4-L5 on the right side. There is opening of the stenosis at L3-L4 and L4-L5 bilaterally. The access trocar was removed. A total of 3 mL's of dye was used. There is good spread of dye above and below this level as well. We injected 80 mg Depo-Medrol through the epidural needle. The epidural needle was removed and dressings were placed. This encounter for exam is for normal comparison and control in a clinical research program Patient was taken to recovery in stable condition. Patient was discharged home neurologically intact and with good relief of pain symptoms. Plan and disposition: We will follow-up with this patient in 2 weeks. Will reevaluate symptoms at that time. Condition: stable Disposition: PACU Complications:: none
[2025-03-29 15:21] VITALS: BP 105/73; PULSE 90; RESP 16; O2SAT 95
[2025-03-29 15:31] VITALS: BP 112/88; PULSE 91; RESP 16; O2SAT 97
[2025-03-29] MEDS: methylPREDNISolone ACETATE 80MG/ML VIAL 80 MG (15:51)
== END 2025-03-29 15:32 | disposition home or self-care (01) ==
PROVIDERS: PCP Family Medicine; Visit Provider Anesthesiology
PROC: (CPT 63005; principal; 2025-03-29 13:00)
DX: M51.369 Other intervertebral disc degeneration, lumbar region without mention of lumbar back pain or lower extremity pain (principal); M48.062 Spinal stenosis, lumbar region with neurogenic claudication; E78.5 Hyperlipidemia, unspecified; I48.91 Unspecified atrial fibrillation; Z95.5 Presence of coronary angioplasty implant and graft; Z88.5 Allergy status to narcotic agent; Z79.899 Other long term (current) drug therapy; G47.33 Obstructive sleep apnea (adult) (pediatric); I48.0 Paroxysmal atrial fibrillation; Z98.890 Other specified postprocedural states
CPT/HCPCS: 0275T; 96374; 99221; C1889; J1010; J1580; J2003; J2004; J2371; J2704; J3010; J7120

== ENCOUNTER 2025-05-03 07:52 | Outpatient (CLI) | payer MEDICARE, BC, SELFPAY ==
--- OUTSIDE RECORDS SUMMARY | 2024-01-16 07:15 | XMS_ITS ---
Author Organization [facility] Address [address] [id number] Care Team Providers [place] Lifeguard Name Role Phone Lane Rodriguez Primary Care Provider Allergies Allergen (clinical drug ingredient) Drug/Non Drug Allergy documented on EMR Reaction Allergy Type Onset Date Status ibuprofen Advil excessive bleeding Drug Allergy Active Results Component Value Reference Range Notes P-Comprehensive Metabolic Pa fadia (CMP) Reviewed date:01/17/2024 11:11:16 AM Interpretation:satisfactory Performing Lab: Notes/Report: Test performed by [facility] [address] [place] [address] , [address], [place] [address] Louie Cagle MD, Tower Erector Helper CLIA: [id number] Sodium 140 135-145 mmol/L Potassium 5.0 3.5-5.3 mmol/L Chloride 106 97-108 mmol/L CO2 27 22-32 mmol/L Glucose 100 65-99 mg/dL BUN 11 8-23 mg/dL Creatinine 1.04 0.70-1.30 mg/dL Calcium 9.3 8.6-10.4 mg/dL eGFR by Creatinine 77 >59 mL/min/1.73m2 Protein 6.9 6.0-8.3 g/dL Albumin 4.5 3.5-5.3 g/dL Alkaline Phosphatase 73 40-129 IU/L ALT (SGPT) 17 <5-55 IU/L AST (SGOT) 18 <5-46 IU/L Bilirubin, Total 1.1 <0.2-1.2 mg/dL A/G Ratio 1.9 1.1-2.5 mg/dL P-Lipid Panel Reviewed date:01/17/2024 11:11:16 AM Interpretation:Normal Performing Lab: Notes/Report: Test performed by [facility] [address] [place] [address] Louie Cagle MD, Tower Erector Helper CLIA: [id number] Cholesterol 170 <200 mg/dL Triglycerides 70 <150 mg/dL HDL Cholesterol 67 >39 mg/dL Cholesterol / HDL Ratio 2.54 0.00-4.99 Ratio Non-HDL Cholesterol 103 <130 mg/dL LDL Cholesterol (Calculation) 89 <130 mg/dL LDL Cholesterol Levels* Less than 100 mg/dL Optimal 100 to 129 mg/dL Near Optimal/ Above Optimal 130 to 159 mg/dL Borderline High 160 to 189 mg/dL High 190 mg/dL and above Very High * Categories as recommended by the 2004 ATPIII guidelines LDL/HDL Ratio 1.3 <3.3 Ratio LDL Cholesterol Patient History Test Date: 01/16/2024 LDL Results: 89 Units: mg/dL % Change: - P-PSA Reviewed date:01/17/2024 11:11:17 AM Interpretation:Normal Performing Lab: Notes/Report: Test performed by [facility] [address] [place], [place] [address] Louie Cagle MD, Tower Erector Helper CLIA: [id number] PSA 1.26 <4.00 ng/mL Please note this is an ultrasensitive PSA assay with a lower limit of detection of 0.014 ng/mL. This test is performed by the Michele ECLIA methodology. Values obtained with different assay methods or kits cannot be directly compared. Reason For Referral Reason Needs to establish c are for valvular heart disease Diagnosis 1 Mitral valve insuffi ciency, unspecified etiology (I34.0) Referral Organization [facility] Referring Provider First Name Lane Ciro Referring Provider Last Name Michale Referring Provider Speciality Family Pra ctice Referred Provider Specialty Cardiovascul ar Disease General Notes Crista Burrell 4 12:43:48 PM > sent referral to [facility] Cardiology Referral Priority Routine REASON FOR VISIT 5 months, needs labs with PSA Medications Medication SIG (Take, Route, Frequency, Duration) Notes Start Date End Date Status Albuterol Sulfate HFA 108 (90 Base) MCG/ACT 2 inhalations Inhalation four times a day as needed 07/28/2023 Active valACYclovir HCl 500 MG 1 tab(s) orally Three times a day Active Fexofenadine HCl 180 MG TAKE 1 TABLET BY MOUTH EVERY DAY; Duration: 90 Active Montelukast Sodium 10 MG 1 tab(s) orally once at bedtime; Duration: 90 days Active Rosuvastatin Calcium 20 MG TAKE 1 TABLET BY MOUTH EVERY NIGHT AT BEDTIME; Duration: 90 Active Breo Ellipta 100-25 MCG/ACT 1 puff(s) in haled once a day; Duration: 30 day(s) Active CoQ10 200 MG as directed orally o nce a day; Duration: 30 day(s) 05/11/2021 Active CPAP SUPPLIES DIRECTED 09/16/2020 Act hayley Aspirin 81 MG 1 tab(s) orally once a day; Duration: 30 day(s) 05/14/2020 Active Vital Signs Weight 179.0 lbs 01/16/2024 Blood pressure systolic 120 mm Hg 01/16/20 24 Blood pressure diastolic 80 mm Hg 024 Heart Rate 58 /min 01/16/2024 Height 69 in 01/16/2024 BMI 26.43 kg/m2 01/16/2024 Encounters Encounter Location Date Provider Diagnosis [facility] [address] [facility] [address] [place], [place] [id number] 01/16/2024 Lane Rodriguez Mitral valve insuffi ciency, unspecified etiology I34.0 ; Aortic valve sclerosis I35.8 ; Obstructive sleep apnea G47.33 ; Memory loss R41.3 ; Benign prostatic hyperplasia without lower urinary tract symptoms N40.0 and Pure hypercholesterolemia E78.00 Assessments Encounter Date Diagnosis (ICD Code) Assessment Notes Treatment Notes Treatment Clinical Notes Section Notes 01/16/2024 Mitral valve insufficiency, unspecified etiology (ICD-10 - I34.0) continue current therapy 01/16/2024 Aortic valve scleros is (ICD-10 - I35.8) 01/16/2024 Obstructive sleep ap derek (ICD-10 - G47.33) 01/16/2024 Memory loss (ICD-10 - R41.3) 01/16/2024 Benign prostatic hyperplasia without lower urinary tract symptoms (ICD-10 - N40.0) 01/16/2024 Pure hypercholesterolemia (ICD-10 - E78.00) Plan Of Treatment Treatment Notes Assessment Notes Mitral valve insufficiency, unspecified etiology continue current therapy Referrals Referral Date Details 01/16/2024 01/16/2024, Needs to establish care for valvular heart disease Next Appt Details Follow Up: 6 Months, Reason: Provider Name:Lane Motley , 05/20/2025 10:15:00 AM, [address] [facility] [address] [facility], [address], [facility] [place], [phone], Progress Notes * JORGE ALBERTO WHITE DDOB: [birth year] (70 yo M)Acc No.[id number]:01/16/2024 Progress Notes Patient: JORGE ALBERTO BISHOP Denice Provider: Lane Rodriguez M.D. :1955 A ge:68 Y S ex:Male Date:01/16/2024 Address:[address] [place] [address], [place] [id number] Subjective: * Chief Complaints: * 1 . 5 months. 2. needs labs with PSA. * HPI: C ardiology: The patient is here for a check up on Hyperlipidemia. Pt states he is doing good and denies any new concerns today. Pt is fasting. Pt states he is needing refills sent to [facility] in [facility]. Denies : Chest Pain. D enies : Short of Breath. D enies : Dizziness. D enies : Palpitations. * ROS: D ERMATOLOGY: no R maggy. n o H bryan. G ASTROENTEROLOGY: no N ausea. n o V omiting. n o D iarrhea.? U ROLOGY: no D ifficulty urinating. n o B lood in urine. * Medical History: S leep Apnea, Mitral Valve Prolapse - Dr. Law, Fx Ribs, Collar Bone Injury Thrown by Cow, Back Pain- Dr. Cat, Arthritis, LT Torn Rotator Cuff, Allergies, Asthma. * Surgical History: H ernia Repair 1985. * Family History: F ather: , diagnosed with Diabetes, Hypertension, Heart Disease, Mental Illness. M other: . M aternal aunt: diagnosed with Mental Illness. 1 brother(s) , 1 sister(s) - healthy. 1 son(s) , 1 daughter(s) - healthy. . Pt father had dementia and Pt maternal aunt from Alzheimer's. * Social History: C URRENT TOBACCO USE: No . M arital Status: . * Medications: T aking Aspirin 81 MG Tablet Delayed Release 1 tab(s) orally once a day , Taking CPAP SUPPLIES DIRECTED , Taking CoQ10 200 MG Capsule as directed orally once a day , Taking Breo Ellipta 100-25 MCG/ACT Aerosol Powder Breath Activated 1 puff(s) inhaled once a day , Taking valACYclovir HCl 500 MG Tablet 1 tab(s) orally Three times a day , Taking Albuterol Sulfate HFA 108 (90 Base) MCG/ACT Aerosol Solution 2 inhalations Inhalation four times a day as needed , Taking Fexofenadine HCl 180 MG Tablet TAKE 1 TABLET BY MOUTH EVERY DAY , Taking Rosuvastatin Calcium 20 MG Tablet TAKE 1 TABLET BY MOUTH EVERY NIGHT AT BEDTIME , Taking Montelukast Sodium 10 MG Tablet 1 tab(s) orally once at bedtime , Medication List reviewed and reconciled with the patient * Allergies: A dvil: excessive bleeding . Objective: * Vitals: W t:179.0, Temp:97.8, BP:120/80, HR:58, Nurse:CORTNEY, Ht: 69, BMI:26.43. * Examination: G eneral Examination: General Appearance: N AD. H EENT: u nremarkable.?Oral cavity: n o lesions, mucosa moist and WNL, no erythema. N ramirez: s upple, no lymphadenopathy, carotid bruit, right, carotid bruit, left. C hest: n ormal shape and expansion. Heart: R SR, no ectopics, prominent murmurs, both mitral and aortic components, Echo and carotid studies reviewed.. L ungs: c lear to auscultation. A bdomen: soft and nontender. N eurologic Exam: I ntact, gait normal. S kin: n ormal, no rash. P eripheral pulses: n ormal . B ack: normal. E xtremities: n o leg edema. G enitalia: n ot examined. Assessment: * Assessment: 1. M itral valve insufficiency, unspecified etiology - I34.0 (Primary) 2 . A ortic valve sclerosis - I35.8 3 . O bstructive sleep apnea - G47.33 4 . M stevo loss - R41.3 5 . B enign prostatic hyperplasia without lower urinary tract symptoms - N40.0 6 . P ure hypercholesterolemia - E78.00 ? Plan: * Treatment: Value Reference Range A /G Ratio 1.9 1.1-2.5 - mg/dL * A lbumin 4.5 3.5-5.3 - g/dL * A lkaline Phosphatase 73 40-129 - IU/L * A LT (SGPT) 17 <5-55 - IU/L * A ST (SGOT) 18 <5-46 - IU/L * B ilirubin, Total 1.1 <0.2-1.2 - mg/dL * B UN 11 8-23 - mg/dL * C alcium 9.3 8.6-10.4 - mg/dL * C hloride 106 97-108 - mmol/L * C O2 27 22-32 - mmol/L * C reatinine 1.04 0.70-1.30 - mg/dL * G lucose 100 H 65-99 - mg/dL * P otassium 5.0 3.5-5.3 - mmol/L * S odium 140 135-145 - mmol/L * P rotein 6.9 6.0-8.3 - g/dL * e GFR by Creatinine 77 >59 - mL/min/1.73m2 * Dee Go 01/17/2024 11:1 1:05 AM >Patient informed of normal results. Notes: continue current therapy? Referral To:Cardiovascular Disease ?Reason:Needs toestablish care for valvular heart disease 2.?Aortic valve sclerosis?LAB: P-Comprehensive Metabolic Panel (CMP) (Collection Date & Time - 01/16/2024 11:35 AM)?satisfactory* Value Reference Range A /G Ratio 1.9 1.1-2.5 - mg/dL * A lbumin 4.5 3.5-5.3 - g/dL * A lkaline Phosphatase 73 40-129 - IU/L * A LT (SGPT) 17 <5-55 - IU/L * A ST (SGOT) 18 <5-46 - IU/L * B ilirubin, Total 1.1 <0.2-1.2 - mg/dL * B UN 11 8-23 - mg/dL * C alcium 9.3 8.6-10.4 - mg/dL * C hloride 106 97-108 - mmol/L * C O2 27 22-32 - mmol/L * C reatinine 1.04 0.70-1.30 - mg/dL * G lucose 100 H 65-99 - mg/dL * P otassium 5.0 3.5-5.3 - mmol/L * S odium 140 135-145 - mmol/L * P rotein 6.9 6.0-8.3 - g/dL * e GFR by Creatinine 77 >59 - mL/min/1.73m2 * Dee Go 01/17/2024 11:1 1:05 AM >Patient informed of normal results. 3.?Benign prostatic hyperplasia without lower urinary tract symptoms?LAB: P-PSA (Collection Date & Time - 01/16/2024 11:35 AM)?Normal* Value Reference Range P SA 1.26 <4.00 - ng/mL * Dee Go 01/17/2024 11:1 1:05 AM >Patient informed of normal results. 4.?Pure hypercholesterolemia?LAB: P-Lipid Panel (Collection Date & Time - 01/16/2024 11:35 AM)?Normal* Value Reference Range C holesterol / HDL Ratio 2.54 0.00-4.99 - Ratio * C holesterol 170 <200 - mg/dL * H DL Cholesterol 67 >39 - mg/dL * L DL Cholesterol (Calculation) 89 <130 - mg/d L * L DL/HDL Ratio 1.3 <3.3 - Ratio * N on-HDL Cholesterol 103 <130 - mg/dL * T riglycerides 70 <150 - mg/dL * Dee Go 01/17/2024 11:1 1:05 AM >Patient informed of normal results. * Follow Up: 6 Months * Images: Billing Information: * Visit Code: 94019 Office Visit, Est Pt., Level 4. * Procedure Codes: * Electronic signature of Lane Rodriguez MD on 05/03/2025 at 07:56 AM EDT Sign off status: Pending * Provider: Lane Rodriguez M.D. Date: 0 01/16/2024 Generated for Juan claire/Olga/Kasiasmitting on: 1 07:56 AM EDT History and Physical Notes * HPI (History of Present Illness) Category Sub-Category Detail Notes Category Not es Cardiology Short of Breath Chest Pain Palpitations Dizziness Examination Category Sub-Category Detail Notes Category Not es General Examination HEENT: unremarkable Heart: RSR, no ectopics, pr ominent murmurs, both mitral and aortic components, Echo and carotid studies reviewed. Lungs: clear to auscultatio n Abdomen: soft and nontender Extremities: no leg edema General Appearance: NAD Skin: normal, no rash Neurologic Exam: Intact, gait normal Neck: supple, no lymphaden opathy, carotid bruit, right, carotid bruit, left Oral cavity: no lesions, mucosa m oist and WNL, no erythema Peripheral pulses: normal Back: normal Genitalia: not examined Chest: normal shape and exp ansion Consultation Request Notes Referral Date Referring Provider Referred Provider Not es 01/16/2024 Lane Rodriguez , Needs to e stablish care for valvular heart disease
--- OUTSIDE RECORDS SUMMARY | 2024-03-14 10:30 | XMS_ITS ---
Author Organization [facility] Address [address] [id number] Care Team Providers Care Ash Collector Name Role Phone Lane Rodriguez Primary Care Provider Kelsea Humberto Unavailable [phone] Allergies Allergen (clinical drug ingredient) Drug/Non Drug Allergy documented on EMR Reaction Allergy Type Onset Date Status ibuprofen Advil excessive bleeding Drug Allergy Active Results Component Value Reference Range Notes CBC Fingerstick (in house) Reviewed date:03/14/2024 04:19:40 PM Interpretation: Performing Lab: Notes/Report: wbc 9.9 3.5 - 10 lym 9.7% 15 - 50 mid 2.5% 2 - 15 gran 87.8% 35 - 80 rbc 4.04 3.5 - 5.5 hgb 11.9 11.5 - 16.5 hct 37.0 35 - 55 mcv 91.6 75 - 100 mch 29.5 25 - 35 mchc 32.2 31 - 38 plat 434 100 - 400 CXR Reviewed date:03/16/2024 03:59:45 PM Interpretation:No pneumonia Performing Lab: Notes/Report: No pneumonia REASON FOR VISIT possible ear infection Medications Medication SIG (Take, Route, Frequency, Duration) Notes Start Date End Date Status Amiodarone HCl 200 MG 1 tablet Orally On ce a day; Duration: 30 day(s) Active Acetaminophen 325 MG 1 tablet as needed Orally every 6 hrs Active Aspirin 81 MG 1 tab(s) orally once a day; Duration: 30 day(s) 05/14/2020 Active Metoprolol Tartrate 25 MG 1 tablet with food Orally Twice a day; Duration: 30 day(s) Active Methocarbamol 500 MG 1.5 tablets Orally every 4 hrs; Duration: 30 day(s) Active valACYclovir HCl 500 MG 1 tab(s) orally Three times a day Active Albuterol Sulfate HFA 108 (90 Base) MCG/ACT 2 inhalations Inhalation four times a day as needed 07/28/2023 Active Fexofenadine HCl 180 MG TAKE 1 TABLET BY MOUTH EVERY DAY; Duration: 90 Active Rosuvastatin Calcium 20 MG TAKE 1 TABLET BY MOUTH EVERY NIGHT AT BEDTIME; Duration: 90 Active Montelukast Sodium 10 MG 1 tab(s) orally once at bedtime; Duration: 90 days Active CPAP SUPPLIES DIRECTED 09/16/2020 Act hayley CoQ10 200 MG as directed orally o nce a day; Duration: 30 day(s) 05/11/2021 Active Breo Ellipta 100-25 MCG/ACT 1 puff(s) in haled once a day; Duration: 30 day(s) Active Zithromax Z-Alvin 250 MG as directed Orall y once daily; Duration: 5 day(s) 03/14/2024 Active Vital Signs Weight 178 lbs 03/14/2024 Blood pressure systolic 92 mm Hg 03/14/20 24 Blood pressure diastolic 52 mm Hg 024 Heart Rate 78 /min 03/14/2024 Height 69 in 03/14/2024 BMI 26.28 kg/m2 03/14/2024 Encounters Encounter Location Date Provider Diagnosis [facility] [address] [facility] [address] [facility] [address] [place] [id number] 03/14/2024 Humberto Enamorado Acute cough R 05.1 Assessments Encounter Date Diagnosis (ICD Code) Assessment Notes Treatment Notes Treatment Clinical Notes Section Notes 03/14/2024 Acute cough (ICD-10 - R05.1) Plan Of Treatment Medication Medication Name Sig Start Date Stop Date Notes Zithromax Z-Alvin 250 MG as directed Orall y once daily; Duration: 5 day(s) 03/14/2024 Next Appt Details Follow Up: via phone to repo rt test results, Reason: Provider Name:Lane stack, 05/20/2025 10:15:00 AM, [address] [facility] [address], [place], [id number], Progress Notes * JORGE ALBERTO WHITE DDOB: [birth year] (70 yo M)Acc No.[id number]:03/14/2024 Progress Notes Patient: JORGE ALBERTO BISHOP Provider: Tiffany Enamorado M.D. :1955 A ge:68 Y S ex:Male Date:03/14/2024 Address:[address] [place] [address], [place] [address] Pcp:Lane Rodriguez Subjective: * Chief Complaints: * 1 . Possible ear infection. * HPI: E NT/respiratory: 68 year old male presents with c/o facial pain/pressure P t complains of lt side facial pressure and ear pain for 3-4 days. States he has also some nasal congestion and coughing. * ROS: D ERMATOLOGY: no R maggy. n o H bryan. G ASTROENTEROLOGY: no N ausea. n o V omiting. U ROLOGY: no D ifficulty urinating. n o B lood in urine. * Medical History: S leep Apnea, Mitral Valve Prolapse - Dr. Law, Fx Ribs, Collar Bone Injury Thrown by Cow, Back Pain- Dr. Cat, Arthritis, LT Torn Rotator Cuff, Allergies, Asthma, Red Cell Antibody with Anti-E Specificity. * Surgical History: H ernia Repair 1985. * Hospitalization/Major Diagno stic Procedure: D enies Past Hospitalization. * Family History: F ather: , diagnosed [...] arital Status: . * Medications: T aking Metoprolol Tartrate 25 MG Tablet 1 tablet with food Orally Twice a day , Taking Methocarbamol 500 MG Tablet 1.5 tablets Orally every 4 hrs , Taking Amiodarone HCl 200 MG Tablet 1 tablet Orally Once a day , Taking Acetaminophen 325 MG Tablet 1 tablet as needed Orally every 6 hrs , Taking Aspirin 81 MG Tablet Delayed Release 1 [...] excessive bleeding . Objective: * Vitals: W t:178, Temp:97.9, BP:92/52, HR:78, Nurse:chantal, Ht: 69, BMI:26.28. * Examination: E NT/Respiratory: General Appearance: N AD. S inuses : tender maxillary sinuses bilaterally. H eart : R RR. L ungs: g ood air movement, few crackles in the left base. Assessment: * Assessment: 1. A manave cough - R05.1 (Primary) Plan: * Treatment: Value Reference Range w bc 9.9 3.5 - 10 * l ym 9.7% 15 - 50 * m id 2.5% 2 - 15 * g ran 87.8% 35 - 80 * r bc 4.04 3.5 - 5.5 * h gb 11.9 11.5 - 16.5 * h ct 37.0 35 - 55 * m cv 91.6 75 - 100 * m ch 29.5 25 - 35 * m chc 32.2 31 - 38 * p lat 434 100 - 400 * Tiki Isaac 03/14/2024 2:33:25 PM > , Provider reviewed results while patient in office. ?Imaging: CXR (Performed Date - 03/14/2024)?No pneumonia* Humberto Enamorado 03/16/2024 9 :07:50 AM > Sent to [facility] to inform.Harriett Hughes 03/16/2024 3:59:00 PM > pts informed * Procedure Codes: G 2211 Complex e/[place], [address] CAPILLARY BLOOD DRAW, 54970 CBC WITH AUTO DIFF * Follow Up: v ia phone to report test results * Images: Billing Information: * Visit Code: 42138 Office Visit, Est Pt., Level 3. * Procedure Codes: G2211 Complex e/[place]. [address] CAPILLARY BLOOD DRAW. 18006 CBC WITH AUTO DIFF. * Electronic signature of Millicent Enamorado MD on 05/03/2025 at 07:55 AM EDT Sign off status: Pending * Provider: Tiffany Enamorado M.D. Date: 0 03/14/2024 Generated for Juan claire/Olga/Aleshiaitting on: 1 07:55 AM EDT History and Physical Notes * HPI (History of Present Illness) Category Sub-Category Detail Notes Category Not es ENT/respiratory facial pain/pressure Pt complain s of lt side facial pressure and ear pain for 3-4 days. States he has also some nasal congestion and coughing Examination Category Sub-Category Detail Notes Category Not es ENT/Respiratory Sinuses : tender maxillary sinuses bilaterally Heart : RRR Lungs: good air movement, f ew crackles in the left base General Appearance: NAD
--- OUTSIDE RECORDS SUMMARY | 2024-03-22 06:15 | XMS_ITS ---
Author Organization [facility] Address [address] [id number] Care Team Providers Care Tutor Name Role Phone Lane Rodriguez Primary Care Provider Marsha Thornton Unavailable [phone] Allergies Allergen (clinical drug ingredient) Drug/Non Drug Allergy documented on EMR Reaction Allergy Type Onset Date Status ibuprofen Advil excessive bleeding Drug Allergy Active Results Component Value Reference Range Notes CBC Fingerstick (in house) Reviewed date:03/22/2024 12:13:30 PM Interpretation: Performing Lab: Notes/Report: wbc 7.2 3.5 - 10 lym 13.7 15 - 50 mid 4.0 2 - 15 gran 82.3 35 - 80 rbc 4.28 3.5 - 5.5 hgb 12.4 11.5 - 16.5 hct 38.7 35 - 55 mcv 90.5 75 - 100 mch 29.1 25 - 35 mchc 32.1 31 - 38 plat 216 100 - 400 REASON FOR VISIT follow up on ears Medications Medication SIG (Take, Route, Frequency, Duration) Notes Start Date End Date Status valACYclovir HCl 500 MG 1 tab(s) orally Three times a day Active Albuterol Sulfate HFA 108 (90 Base) MCG/ACT 2 inhalations Inhalation four times a day as needed 07/28/2023 Active Montelukast Sodium 10 MG 1 tab(s) orally once at bedtime; Duration: 90 days Active Fexofenadine HCl 180 MG TAKE 1 TABLET BY MOUTH EVERY DAY; Duration: 90 Active Rosuvastatin Calcium 20 MG TAKE 1 TABLET BY MOUTH EVERY NIGHT AT BEDTIME; Duration: 90 Active Cefdinir 300 MG 1 cap(s) Orally Two times a day; Duration: 7 days 03/22/2024 Active CPAP SUPPLIES DIRECTED 09/16/2020 Act hayley Mupirocin 2 % 1 application Aquatics Coordinator ally Twice a day 03/22/2024 Active CoQ10 200 MG as directed orally o nce a day; Duration: 30 day(s) 05/11/2021 Active Breo Ellipta 100-25 MCG/ACT 1 puff(s) in haled once a day; Duration: 30 day(s) Active Aspirin 81 MG 1 tab(s) orally once a day; Duration: 30 day(s) 05/14/2020 Active Acetaminophen 325 MG 1 tablet as needed Orally every 6 hrs Active Methocarbamol 500 MG 1.5 tablets Orally every 4 hrs; Duration: 30 day(s) Active Amiodarone HCl 200 MG 1 tablet Orally On ce a day; Duration: 30 day(s) Active Metoprolol Tartrate 25 MG 1 tablet with food Orally Twice a day; Duration: 30 day(s) Active Zithromax Z-Alvin 250 MG as directed Orall y once daily; Duration: 5 day(s) 03/14/2024 Active Vital Signs Weight 177.0 lbs 03/22/2024 Blood pressure systolic 110 mm Hg 03/22/20 24 Blood pressure diastolic 76 mm Hg 024 Heart Rate 77 /min 03/22/2024 Height 69 in 03/22/2024 BMI 26.14 kg/m2 03/22/2024 Encounters Encounter Location Date Provider Diagnosis [facility] [address] [id number] 03/22/2024 Marsha Thornton Nasal sore J34.89 ; Nasal bleeding R04.0 and Parotid swelling R60.9 Assessments Encounter Date Diagnosis (ICD Code) Assessment Notes Treatment Notes Treatment Clinical Notes Section Notes 03/22/2024 Nasal sore (ICD-10 - J34.89) 03/22/2024 Nasal bleeding (ICD-10 - R04.0) Will use nasal saline and apply the mupirocin to get the sore/scab to heal. Likely from having oxygen while in the hospital. 03/22/2024 Parotid swelling (ICD-10 - R60.9) Plan Of Treatment Medication Medication Name Sig Start Date Stop Date Notes Cefdinir 300 MG 1 cap(s) Orally Two times a day; Duration: 7 days 03/22/2024 Mupirocin 2 % 1 application Externally Twice a day 024 Treatment Notes Assessment Notes Nasal bleeding Will use nasal salin e and apply the mupirocin to get the sore/scab to heal. Likely from having oxygen while in the hospital. Next Appt Details Follow Up: 1 Week, Reason: Provider Name:Lane Motley er, 05/20/2025 10:15:00 AM, [address] [facility] [address], [address], [place], [place], [id number], Progress Notes * JORGE ALBERTO WHITE DDOB: [birth year] (70 yo M)Acc No.[id number]:03/22/2024 Progress Notes Patient: JORGE ALBERTO BISHOP Provider: TENZIN Mejia :1955 A ge:68 Y S ex:Male Date:03/22/2024 Address:[address] [place] [address], [place] [address] Pcp:Lane Rodriguez Subjective: * Chief Complaints: * 1 . Follow up on ears. * HPI: E NT/respiratory: 68 year old male presents with c/o ear pain P t sts he is still having trouble with pain in front of his left ear and radiating into his jaw. Pt had open heart surgery on February 27, and sts he is doing well after the surgery. They did call the surgeon about this pain and he directed them to their PCP. Pt sts he is also having nose bleeds on the left side. He sts he goes back to the surgeon next week.. * ROS: D ERMATOLOGY: no R maggy. [...] 1 tab(s) orally once at bedtime , Taking Zithromax Z-Alvin 250 MG Tablet as directed Orally once daily , Medication List reviewed and reconciled with the patient * Allergies: A dvil: excessive bleeding . Objective: * Vitals: W t:177.0, Temp:98.4, BP:110/76, HR:77, Nurse:DAVON, Ht: 69, BMI:26.14. * Examination: E NT/Respiratory: General Appearance: N AD. E ars: a uditory canals normal bilaterally, TM's WNL. N ose : sore/scab in the left naris. S inuses : non tender bilaterally. O ral cavity : n o erythema or exudate seen on pharynx, gums nontender. Neck : n o cervical lymphadenopathy, there is some swelling and tenderness along the left parotid gland. H eart : R RR, normal S1 S2, no murmurs. L ungs: c lear to auscultation bilaterally. Assessment: * Assessment: 1. N lisa sore - J34.89 (Primary) 2 . N lisa bleeding - R04.0 ?3. P arotid swelling - R60.9 Plan: * Treatment: 2. N lisa bleeding Notes: Will use nasal saline and apply the mupirocin to get the sore/scab to heal. Likely from having oxygen while in the hospital. 3. P arotid swelling Start Cefdinir Capsule, 300 MG, 1 cap(s), Orally, Two times a day, 7 days, 14 Capsule, Refills 0.? L AB: CBC Fingerstick (in house) (Collection Date & Time - 03/22/2024) Value Reference Range w bc 7.2 3.5 - 10 * l ym 13.7 15 - 50 * m id 4.0 2 - 15 * g ran 82.3 35 - 80 * r bc 4.28 3.5 - 5.5 * h gb 12.4 11.5 - 16.5 * h ct 38.7 35 - 55 * m cv 90.5 75 - 100 * m ch 29.1 25 - 35 * m chc 32.1 31 - 38 * p lat 216 100 - 400 * Harriett Hughes 03/22/2024 11:01 :52 AM >Marsha Thornton 03/22/2024 12:13:25 PM > * Procedure Codes: 3 6416 CAPILLARY BLOOD DRAW, [address] CBC WITH AUTO DIFF * Follow Up: 1 Week * Images: Billing Information: * Visit Code: 22098 Office Visit, Est Pt., Level 3. * Procedure Codes: 82937 CAPILLARY BLOOD DRAW. [address]0743 CBC WITH AUTO DIFF. * Electronic signature of TENZIN Banuelos on 05/03/2025 at 07:54 AM EDT Sign off status: Pending * Provider: TENZIN Mejia Date: 0 03/22/2024 Generated for Printi ng/Faemeraldg/eTransmitting on: 1 07:54 AM EDT History and Physical Notes * HPI (History of Present Illness) Category Sub-Category Detail Notes Category Not es ENT/respiratory ear pain Pt sts he is sti ll having trouble with pain in front of his left ear and radiating into his jaw. Pt had open heart surgery on February 27, and sts he is doing well after the surgery. They did call the surgeon about this pain and he directed them to their PCP. Pt sts he is also having nose bleeds on the left side. He sts he goes back to the surgeon next week. Examination Category Sub-Category Detail Notes Category Not es ENT/Respiratory Oral cavity : no erythema or e xudate seen on pharynx, gums nontender Sinuses : non tender bilateral ly Ears: auditory canals norm al bilaterally, TM's WNL Neck : no cervical lymphade nopathy, there is some swelling and tenderness along the left parotid gland Heart : RRR, normal S1 S2, n o murmurs Lungs: clear to auscultatio n bilaterally General Appearance: NAD Nose : sore/scab in the lef t naris
--- OUTSIDE RECORDS SUMMARY | 2024-03-29 05:30 | XMS_ITS ---
Author Organization [facility] Address [address] [facility] [address] [id number] Care Team Providers Care Claim Processor Name Role Phone Lane Rodriguez Primary Care Provider Marsha Thornton Unavailable [phone] Allergies Allergen (clinical drug ingredient) Drug/Non Drug Allergy documented on EMR Reaction Allergy Type Onset Date Status ibuprofen Advil excessive bleeding Drug Allergy Active Results Component Value Reference Range Notes CBC Fingerstick (in house) Reviewed date:03/29/2024 01:40:16 PM Interpretation: Performing Lab: Notes/Report: wbc 7.1 3.5 - 10 lym 12.2 15 - 50 mid 2.7 2 - 15 gran 85.1 35 - 80 rbc 4.55 3.5 - 5.5 hgb 13.0 11.5 - 16.5 hct 40.4 35 - 55 mcv 88.8 75 - 100 mch 28.6 25 - 35 mchc 32.2 31 - 38 plat 194 100 - 400 Reason For Referral Diagnosis 1 Parotid swelling (R6 0.9) [facility]erring Provider First Name Marsha Referring Provider Last Name Norberto Referring Provider Speciality Physician Driver Messenger Referred Provider ENT, . Referred Provider Specialty ENT General Notes Marsha Thornton 03/29 10:06:45 AM > Needs to see ENT Gilda KUMAR Shelia 03/29/2024 10:46:37 AM > referral faxed to ENT at [facility] Referral Priority Routine REASON FOR VISIT 1 week Medications Medication SIG (Take, Route, Frequency, Duration) Notes Start Date End Date Status Mupirocin 2 % 1 application Fleet Service Manager ally Twice a day Active Amoxicillin-Pot Clavulanate 875-125 MG 1 tablet Orally every 12 hrs; Duration: 10 day(s) 03/29/2024 Active Methocarbamol 500 MG 1.5 tablets Orally every 4 hrs; Duration: 30 day(s) Active Metoprolol Tartrate 25 MG 1 tablet with food Orally Twice a day; Duration: 30 day(s) Active Fexofenadine HCl 180 MG TAKE 1 TABLET BY MOUTH EVERY DAY; Duration: 90 Active Albuterol Sulfate HFA 108 (90 Base) MCG/ACT 2 inhalations Inhalation four times a day as needed 07/28/2023 Active Montelukast Sodium 10 MG 1 tab(s) orally once at bedtime; Duration: 90 days Active Rosuvastatin Calcium 20 MG TAKE 1 TABLET BY MOUTH EVERY NIGHT AT BEDTIME; Duration: 90 Active Zithromax Z-Alvin 250 MG as directed Orall y once daily; Duration: 5 day(s) 03/14/2024 Active valACYclovir HCl 500 MG 1 tab(s) orally Three times a day Active Breo Ellipta 100-25 MCG/ACT 1 puff(s) in haled once a day; Duration: 30 day(s) Active CoQ10 200 MG as directed orally o nce a day; Duration: 30 day(s) 05/11/2021 Active CPAP SUPPLIES DIRECTED 09/16/2020 Act hayley Aspirin 81 MG 1 tab(s) orally once a day; Duration: 30 day(s) 05/14/2020 Active Acetaminophen 325 MG 1 tablet as needed Orally every 6 hrs Active Amiodarone HCl 200 MG 1 tablet Orally On ce a day; Duration: 30 day(s) Active Vital Signs Weight 174.4 lbs 03/29/2024 Blood pressure systolic 120 mm Hg 03/29/20 24 Blood pressure diastolic 60 mm Hg 024 Heart Rate 85 /min 03/29/2024 Height 69 in 03/29/2024 BMI 25.75 kg/m2 03/29/2024 Encounters Encounter Location Date Provider Diagnosis [facility] [address] [facility] [address] [place] [address], [place] [id number] 03/29/2024 Marsha Crowdy Nasal sore J34.89 ; Nasal bleeding R04.0 ; Parotid swelling R60.9 and Nasal swelling R22.0 Assessments Encounter Date Diagnosis (ICD Code) Assessment Notes Treatment Notes Treatment Clinical Notes Section Notes 03/29/2024 Nasal sore (ICD-10 - J34.89) 03/29/2024 Nasal bleeding (ICD-10 - R04.0) Has improved. Has not had a bleed in 2 days. left naris still swollen. 03/29/2024 Parotid swelling (ICD-10 - R60.9) 03/29/2024 Nasal swelling (ICD-10 - R22.0) Plan Of Treatment Medication Medication Name Sig Start Date Stop Date Notes Mupirocin 2 % 1 application Fleet Service Manager ally Twice a day Amoxicillin-Pot Clavulanate 875-125 MG 1 tablet Orally every 12 hrs; Duration: 10 day(s) 03/29/2024 Treatment Notes Assessment Notes Nasal bleeding Has improved. Has no t had a bleed in 2 days. left naris still swollen. Referrals Referral Date Details 03/29/2024 03/29/2024, . ENT Next Appt Details Follow Up: 1 Week, Reason: Provider Name:Lane Motley er, 05/20/2025 10:15:00 AM, [address] [facility] [address] [facility], [address] , [place], [place], [id number], Progress Notes * JORGE ALBERTO WHITE DDOB: [birth year] (70 yo M)Acc No.[id number]:03/29/2024 Progress Notes Patient: JORGE ALBERTO BISHOP Provider: TENZIN Mejia :1955 A ge:68 Y S ex:Male Date:03/29/2024 Address:[address] [place] [address], [place] [address] Pcp:Lane Rodriguez Subjective: * Chief Complaints: * 1 . 1 week. * HPI: E NT/respiratory: 68 year old male presents with c/o ear pain P t presents today for a 1 week follow up. Pt sts he is having less pain in his ear now. Pt sts he has not had a nose bleed in two days. Pt sts that his jaw pain and the swelling is still there, but sts that it is less than before. * ROS: D ERMATOLOGY: no R maggy. [...] Tablet as directed Orally once daily , Taking Mupirocin 2 % Ointment 1 application Externally Twice a day , Discontinued Cefdinir 300 MG Capsule 1 cap(s) Orally Two times a day , Medication List reviewed and reconciled with the patient * Allergies: A dvil: excessive bleeding . Objective: * Vitals: W t:174.4, Temp:97.1, BP:120/60, HR:85, Nurse:DAVON, Ht: 69, BMI:25.75. * Examination: E NT/Respiratory: General Appearance: N AD. E ars: a uditory canals normal bilaterally, TM's WNL. N ose : s ore/scab in the left naris with swelling. S inuses : non tender bilaterally. O ral cavity : n o erythema or exudate seen on pharynx, gums nontender. N ramirez : n o cervical lymphadenopathy, there is some swelling and tenderness along the left parotid gland. H eart : R RR, normal S1 S2, no murmurs. L ungs: c lear to auscultation bilaterally. Assessment: * Assessment: 1. N lisa sore - J34.89 (Primary) 2 . N lisa bleeding - R04.0 ?3. P arotid swelling - R60.9 4 . N lisa swelling - R22.0 ? Plan: * Treatment: 2. N lisa bleeding Notes: Has improved. Has not had a bleed in 2 days. left naris still swollen. 3. P arotid swelling Start Amoxicillin-Pot Clavulanate Tablet, 875-125 MG, 1 tablet, Orally, every 12 hrs, 10 day(s), 20 Tablet, Refills 0. L AB: CBC Fingerstick (in house) (Collection Date & Time - 03/29/2024) Value Reference Range w bc 7.1 3.5 - 10 * l ym 12.2 15 - 50 * m id 2.7 2 - 15 * g ran 85.1 35 - 80 * r bc 4.55 3.5 - 5.5 * h gb 13.0 11.5 - 16.5 * h ct 40.4 35 - 55 * m cv 88.8 75 - 100 * m ch 28.6 25 - 35 * m chc 32.2 31 - 38 * p lat 194 100 - 400 * Tiki Isaac 03/29/2024 9:47:23 AM >Marsha Thornton 03/29/2024 1:40:14 PM > ? Referral To:. ENT??ENT ?Reason: * Procedure Codes: 3 6416 CAPILLARY BLOOD DRAW, [address] CBC WITH AUTO DIFF * Follow Up: 1 Week * Images: Billing Information: * Visit Code: 82379 Office Visit, Est Pt., Level 3. * Procedure Codes: 04519 CAPILLARY BLOOD DRAW. 99643 CBC WITH AUTO DIFF. * Electronic signature of TENZIN Banuelos on 05/03/2025 at 07:55 AM EDT Sign off status: Pending * Provider: TENZIN Mejia Date: 0 03/29/2024 Generated for Printi ng/Faxing/eTransmitting on: 1 07:55 AM EDT History and Physical Notes * HPI (History of Present Illness) Category Sub-Category Detail Notes Category Not es ENT/respiratory ear pain Pt presents toda y for a 1 week follow up. Pt sts he is having less pain in his ear now. Pt sts he has not had a nose bleed in two days. Pt sts that his jaw pain and the swelling is still there, but sts that it is less than before Examination Category Sub-Category Detail Notes Category Not [...] : sore/scab in the lef t naris with swelling Consultation Request Notes Referral Date Referring Provider Referred Provider Not es 03/29/2024 Marsha Thornton ENT, .
--- OUTSIDE RECORDS SUMMARY | 2024-04-05 05:00 | XMS_ITS ---
Author Organization [facility] Address [address] [place] [address] [address] [place], [place] [id number] Care Team Providers Care Automation Engineering Manager Name Role Phone Lane Rodriguez Primary Care Provider Marsha Thornton [phone] REASON FOR VISIT 1 week Encounters Encounter Location Date Provider Diagnosis [facility] [address] [facility] [address] [facility] [address] [place], [place] [phone] 04/05/2024 Marsha Thornton Plan Of Treatment Next Appt Details Provider Name:Lane Motley er, 05/20/2025 10:15:00 AM, [address], [address], [place], [place], [id number], Progress Notes * JORGE ALBERTO WHITE DDOB: [birth year] (70 yo M)Acc No.[id number]:04/05/2024 Progress Notes Patient: JORGE ALBERTO BISHOP Denice Provider: TENZIN Mejia :1955 A ge:69 Y S ex:Male Date:04/05/2024 Address:[address] [place], [place] [phone] Pcp:Lane Rodriguez Subjective: * Chief Complaints: * 1 . 1 week. * Medical History: Objective: * Vitals: Assessment: Plan: * Treatment: * Images: Billing Information: * Visit Code: * Procedure Codes: * Electronic signature of TENZIN Banuelos on 05/03/2025 at 07:55 AM EDT Sign off status: Pending * Provider: TENZIN Mejia Date: 0 04/05/2024 Generated for Juan claire/Olga/Madina on: 1 07:55 AM EDT
--- OUTSIDE RECORDS SUMMARY | 2024-06-22 05:45 | XMS_ITS ---
Author Organization [facility] Address [address] [id number] Care Team Providers Care Molding Line Operator Name Role Phone Lane Rodriguez Primary Care Provider Marsha Thornton Unavailable [phone] Allergies Allergen (clinical drug ingredient) Drug/Non Drug Allergy documented on EMR Reaction Allergy Type Onset Date Status ibuprofen Advil excessive bleeding Drug Allergy Active REASON FOR VISIT stiff neck Medications Medication SIG (Take, Route, Frequency, Duration) Notes Start Date End Date Status Montelukast Sodium 10 MG TAKE 1 TABLET B Y MOUTH EVERY NIGHT AT BEDTIME; Duration: 90 Active Breo Ellipta 100-25 MCG/ACT INHALE 1 PUF F ONCE A DAY; Duration: 30 Active Medrol 4 MG as directed orally d aily; Duration: 6 days 06/22/2024 Active Methocarbamol 500 MG 1 tablet Orally thr ee times a day as needed; Duration: 30 day(s) Active Rosuvastatin Calcium 20 MG TAKE 1 TABLET BY MOUTH EVERY NIGHT AT BEDTIME; Duration: 90 Active Mupirocin 2 % 1 application Fuller Brush Worker ally Twice a day Active Fexofenadine HCl 180 MG TAKE 1 TABLET BY MOUTH EVERY DAY; Duration: 90 Active Albuterol Sulfate HFA 108 (90 Base) MCG/ACT 2 inhalations Inhalation four times a day as needed 07/28/2023 Active valACYclovir HCl 500 MG 1 tab(s) orally Three times a day Active CoQ10 200 MG as directed orally o nce a day; Duration: 30 day(s) 05/11/2021 Active Metoprolol Tartrate 25 MG 1 tablet with food Orally Twice a day; Duration: 30 day(s) Active CPAP SUPPLIES DIRECTED 09/16/2020 Act hayley Aspirin 81 MG 1 tab(s) orally once a day; Duration: 30 day(s) 05/14/2020 Active Acetaminophen 325 MG 1 tablet as needed Orally every 6 hrs Active Amiodarone HCl 200 MG 1 tablet Orally On ce a day; Duration: 30 day(s) Active Vital Signs Weight 181.2 lbs 06/22/2024 Blood pressure systolic 100 mm Hg 06/22/20 24 Blood pressure diastolic 60 mm Hg 024 Heart Rate 86 /min 06/22/2024 Height 69 in 06/22/2024 BMI 26.76 kg/m2 06/22/2024 Encounters Encounter Location Date Provider Diagnosis [facility] [address] [facility] 36 [facility] [address] [place] [id number] 06/22/2024 Marsha Thornton Neck muscle spasm M62.838 Assessments Encounter Date Diagnosis (ICD Code) Assessment Notes Treatment Notes Treatment Clinical Notes Section Notes 06/22/2024 Neck muscle spasm (ICD-10 - M62.838) Patient was on muscle relaxants after his heart surgery but has not been on any since that time. Will refill the methocarbamol and start on a steroid dosepack. Plan Of Treatment Medication Medication Name Sig Start Date Stop Date Notes Medrol 4 MG as directed orally d aily; Duration: 6 days 06/22/2024 Methocarbamol 500 MG 1 tablet Orally thr ee times a day as needed; Duration: 30 day(s) Treatment Notes Assessment Notes Neck muscle spasm Patient was on muscl e relaxants after his heart surgery but has not been on any since that time. Will refill the methocarbamol and start on a steroid dosepack. Next Appt Details Follow Up: prn, Reason: Provider Name:Lane Motley er, 05/20/2025 10:15:00 AM, [address] [facility] 36 [facility], [address], [place], [id number], Progress Notes * JORGE ALBERTO WHITE DDOB: [birth year] (70 yo M)Acc No.[id number]:06/22/2024 Progress Notes Patient: Rodrick JORGE ALBERTO Galdamez Provider: TENZIN Mejia :1955 A ge:69 Y S ex:Male Date:06/22/2024 Address:[address] [place] [address], [place] [address] Pcp:Lane Rodriguez Subjective: * Chief Complaints: * 1 . Stiff neck. * HPI: N ramirez: 69 year old male presents with c/o pain P t is here today for c/o stiff neck. Pt sts he has had this for 3 weeks now. Pt sts he is unsure of what has caused this. He states he did some trimming outside and a few days later his neck was stiff.. c/o tingling/ numbness B oth hands have tingled. Pt sts the pain in his neck radiates to his head. * ROS: D ERMATOLOGY: no R maggy. [...] food Orally Twice a day , Taking Amiodarone HCl 200 MG Tablet 1 tablet Orally Once a day , Taking Acetaminophen 325 MG Tablet 1 tablet as needed Orally every 6 hrs , Taking Aspirin 81 MG Tablet Delayed Release 1 tab(s) orally once a day , Taking CPAP SUPPLIES DIRECTED , Taking CoQ10 200 MG Capsule as directed orally once a day , Taking valACYclovir HCl 500 MG Tablet 1 tab(s) orally Three times a day , Taking Albuterol Sulfate HFA 108 (90 Base) MCG/ACT Aerosol Solution 2 inhalations Inhalation four times a day as needed , Taking Fexofenadine HCl 180 MG Tablet TAKE 1 TABLET BY MOUTH EVERY DAY , Taking Mupirocin 2 % Ointment 1 application Externally Twice a day , Taking Breo Ellipta 100-25 MCG/ACT Aerosol Powder Breath Activated INHALE 1 PUFF ONCE A DAY , Taking Montelukast Sodium 10 MG Tablet TAKE 1 TABLET BY MOUTH EVERY NIGHT AT BEDTIME , Taking Rosuvastatin Calcium 20 MG Tablet TAKE 1 TABLET BY MOUTH EVERY NIGHT AT BEDTIME , Not-Taking Methocarbamol 500 MG Tablet 1.5 tablets Orally every 4 hrs , Medication List reviewed and reconciled with the patient * Allergies: A dvil: excessive bleeding . Objective: * Vitals: W t:181.2, Temp:97.6, BP:100/60, HR:86, Nurse:DAVON, Ht: 69, BMI:26.76. * Examination: N ramirez: Vertebral spine tenderness: a bsent. P araspinal muscle spasm: present bilaterally. R marj of motion of neck: limited in all directions.?Trapezius tenderness: present bilaterally, at spinal insertion, at the base of the skull, at shoulder. S houlder joint: n ormal ROM. R eflexes: 2 plus bilaterally. S ensations: n ormal bilaterally. M otor strength: n ormal. Assessment: * Assessment: 1. N ramirez muscle spasm - M62.838 (Primary) Plan: * Treatment: * Follow Up: p rn * Images: Billing Information: * Visit Code: 25603 Office Visit, Est Pt., Level 3. * Procedure Codes: * Electronic signature of TENZIN Banuelos on 05/03/2025 at 07:55 AM EDT Sign off status: Pending * Provider: TENZIN Mejia Date: 08/23/2023 Generated for Juan claire/Olga/Madina on: 07:55 AM EDT History and Physical Notes * HPI (History of Present Illness) Category Sub-Category Detail Notes Category Not es Neck tingling/ numbness Both hands platt ve tingled. Pt sts the pain in his neck radiates to his head pain Pt is here today for c/o stiff neck. Pt sts he has had this for 3 weeks now. Pt sts he is unsure of what has caused this. He states he did some trimming outside and a few days later his neck was stiff. Examination Category Sub-Category Detail Notes Category Not es Neck Vertebral spine tenderness: absent Paraspinal muscle spasm: present bilater ally Range of motion of neck: limited in all directions Trapezius tenderness: present bilaterall y, at spinal insertion, at the base of the skull, at shoulder Shoulder joint: normal ROM Reflexes: 2 plus bilaterally Sensations: normal bilaterally Motor strength: normal
--- OUTSIDE RECORDS SUMMARY | 2024-07-07 05:30 | XMS_ITS ---
[facility] [address] [id number] Care Team Providers Care Steel Turner Name Role Phone Lane Rodriguez Primary Care Provider Humberto Enamorado Unavailable [phone] Allergies Allergen (clinical drug ingredient) Drug/Non Drug Allergy documented on EMR Reaction Allergy Type Onset Date Status ibuprofen Advil excessive bleeding Drug Allergy Active Reason For Referral Reason Please use [facility] Diagnosis 1 Lumbago with sciatic a, right side (M54.41) [facility] Referring Provider First Name Humberto Referring Provider Last Name Kelsea Referring Provider Speciality Family Pra ctice Referred Provider Physical Therapy, . Referred Provider Specialty Physical The rapist General Notes Crista Burrell 024 9:11:45 AM > faxed to [facility] PT Referral Priority Routine REASON FOR [...] Status W/U Status Risk Notes Problem Sciatica (17374640) Lumbago with sciatica, right side (M54.41) Active confirmed Problem Chronic pain (91698567) Other chronic pain (G89.29) Active confirmed Problem Degenerative lumbar spinal stenosis (413861753) Degenerative lumbar spinal stenosis (M48.061) Active confirmed Problem Arthropathy of lumbar facet joint (058070252) Lumbar facet arthropathy (M47.816) Active confirmed Vital Signs Weight 181.4 lbs 07/07/2024 Blood pressure systolic 116 mm Hg 07/07/20 24 Blood pressure diastolic 78 mm Hg 024 Heart Rate 78 /min 07/07/2024 Height 69 in 07/07/2024 BMI 26.79 kg/m2 07/07/2024 Encounters Encounter Location Date Provider Diagnosis [facility] [address] [place], [place] [id number] 07/07/2024 Humberto [place] Lumbago with sciatic a, right side M54.41 [...] Date Details 07/07/2024 07/07/2024, Please u se [facility], . Physical Therapy Next Appt Details Follow Up: via phone to repo rt progress, Reason: Provider Name:Lane Motley er, 05/20/2025 10:15:00 AM, [address] [place] [facility], [address] , [place], [place], [id number], Progress Notes * JORGE ALBERTO WHITE DDOB: [birth year] (70 yo M)Acc No.[id number]:07/07/2024 Progress Notes Patient: JORGE ALBERTO BISHOP [place]ice Provider: Tiffany Enamorado M.D. :1955 A ge:69 Y S ex:Male Date:07/07/2024 Address:[address] [place] [address], [place] [address] Pcp:Lane Rodriguez Subjective: * Chief Complaints: * [...] * Images: Billing Information: * Visit Code: 51085 Office Visit, Est Pt., Level 3. * Procedure Codes: G2211 Complex e/m visit add on. * Electronic signature of Millicent Enamorado MD on 05/03/2025 at 07:55 AM EDT Sign off status: Pending * Provider: Tiffany Enamorado M.D. Date: 09/07/2023 Generated for Juan claire/Olga/Aleshiaitting on: 07:55 AM EDT History and Physical [...] Humberto Enamorado Physical Therapy, . Zahida hyde [facility]
--- OUTSIDE RECORDS SUMMARY | 2024-07-26 11:45 | XMS_ITS ---
Author Organization [facility] Address [address] [id number] Care Team Providers Care Straddle Bug Name Role Phone Lane Rodriguez Primary Care [...] Interpretation:Normal Performing Lab: Notes/Report: Test performed by [facility], [facility]0 [facility] , [address], [place] [address] Louie Cagle MD, National Sales Director CLIA: [id number] Sodium 136 135-145 mmol/L Potassium 4.5 3.5-5.3 [...] Interpretation:Normal Performing Lab: Notes/Report: Test performed by [facility], [address] , [place] [address] Louie Cagle MD, National Sales Director CLIA: [id number] Cholesterol 150 <200 mg/dL Triglycerides 84 <150 [...] AT BEDTIME; Duration: 90 Active Vital Signs Weight 185.8 lbs 07/26/2024 Blood pressure systolic 120 mm Hg 07/26/19 25 Blood pressure diastolic 80 mm Hg 025 Heart Rate 81 /min 07/26/2024 Height 69 in 07/26/2024 BMI 27.43 kg/m2 07/26/2024 Encounters Encounter Location Date Provider Diagnosis [facility] [facility] 36 [address] [place] [id number] 07/26/2024 Lane Rodriguez Pure hypercholestero lemia E78.00 [...] Name:Lane Motley er, 05/20/2025 10:15:00 AM, 12[address] [facility] 36 Psychiatric, [address], [place], [id number], Progress Notes * JORGE ALBERTO WHITE DDOB: [birth year] (70 yo M)Acc No.[id number]:07/26/2024 Progress Notes Patient: JORGE ALBERTO BISHOP Provider: Lane Rodriguez M.D. :1955 A ge:69 Y S ex:Male Date:07/26/2024 Address:[address] [place] [address], [place] [address] Subjective: * Chief Complaints: * 1 . [...] riglycerides 84 <150 - mg/dL * Dee Go 07/27/2024 10: 07:31 AM [...] G 2211 Complex e/[place], [address] CBC WITH AUTO DIFF, 38466 VENIPUNCT, ROUTINE* * Follow Up: 3 Months * Images: Billing Information: * Visit Code: 25332 Office Visit, Est Pt., Level 4. * Procedure Codes: G2211 Complex e/[place]. [address] CBC WITH AUTO DIFF. 85078 VENIPUNCT, ROUTINE*. * Electronic signature of Lane Rodriguez MD on 05/03/2025 at 07:55 AM EDT Sign off status: Pending * Provider: Lane Rodriguez M.D. Date: 0 07/26/2024 Generated for Jaxoni dakotah/Olga/eTransmitting on: 07:55 AM EDT History and Physical [...]
--- OUTSIDE RECORDS SUMMARY | 2024-11-19 07:30 | XMS_ITS ---
Author Organization [facility] Address [address] [id number] Care Team Providers Care Equipment Installation Professional Name Role Phone Lane Rodriguez Primary Care Provider [phone] Allergies Allergen (clinical drug ingredient) Drug/Non Drug Allergy documented on EMR Reaction Allergy Type Onset Date Status ibuprofen Advil excessive bleeding Drug Allergy Active Results Component Value Reference Range Notes P-Comprehensive Metabolic Pa fadia (CMP) Reviewed date:11/22/2024 11:43:52 AM Interpretation:Normal Performing Lab: Notes/Report: Test performed by [facility] [address] [place] [address] , [address], [place] [address] Louie Cagle MD, Solvent Plant Treater CLIA: [id number] Sodium 140 135-145 mmol/L Potassium 5.1 3.5-5.3 mmol/L Chloride 105 97-108 mmol/L CO2 26 22-32 mmol/L Glucose 99 65-99 mg/dL BUN 14 8-23 mg/dL Creatinine 1.02 0.70-1.30 mg/dL Calcium 9.2 8.6-10.4 mg/dL eGFR by Creatinine 78 >59 mL/min/1.73m2 Protein 6.6 6.0-8.3 g/dL Albumin 4.3 3.5-5.3 g/dL Alkaline Phosphatase 69 40-129 IU/L ALT (SGPT) 21 <5-55 IU/L AST (SGOT) 17 <5-46 IU/L Bilirubin, Total 0.8 <0.2-1.2 mg/dL A/G Ratio 1.9 1.1-2.5 REASON FOR VISIT 3 month check up, Needs labs & Prevnar vaccine Medications Medication SIG (Take, Route, Frequency, Duration) Notes Start Date End Date Status Rosuvastatin Calcium 20 MG TAKE 1 TABLET BY MOUTH EVERY NIGHT AT BEDTIME; Duration: 90 Active Mupirocin 2 % 1 application Externally Twice a day Not-Takin g Methocarbamol 500 MG 1 tablet Orally thr ee times a day as needed; Duration: 30 day(s) Not-Taking Amiodarone HCl 200 MG 1 tablet Orally On ce a day; Duration: 30 day(s) Not-Taking Montelukast Sodium 10 MG TAKE 1 TABLET B Y MOUTH EVERY NIGHT AT BEDTIME; Duration: 90 Active Fexofenadine HCl 180 MG TAKE 1 TABLET BY MOUTH EVERY DAY; Duration: 90 Active Metoprolol Tartrate 25 MG 1 tablet with food Orally Twice a day; Duration: 90 days Active valACYclovir HCl 500 MG 1 tab(s) orally Three times a day Active Albuterol Sulfate HFA 108 (90 Base) MCG/ACT 2 inhalations Inhalation four times a day as needed 07/28/2023 Active Breo Ellipta 100-25 MCG/ACT INHALE 1 PUFF ONCE A DAY; Duration: 30 days Active CPAP SUPPLIES DIRECTED 09/16/2020 Act hayley CoQ10 200 MG as directed orally o nce a day; Duration: 30 day(s) 05/11/2021 Active Acetaminophen 325 MG 1 tablet as needed Orally every 6 hrs Active Aspirin 81 MG 1 tab(s) orally once a day; Duration: 30 day(s) 05/14/2020 Active rOPINIRole HCl 0.25 MG 1 tablet 1 to 3 h ours before bedtime Orally Once a day Active Problems Problem Type SNOMED Code ICD Code Onset Dates Problem Status W/U Status Risk Notes Problem Paroxysmal atrial fibrillation (207144845) Paroxysmal atrial fibrillation (I48.0) Active confirmed Vital Signs Weight 180.8 lbs 11/19/2024 Blood pressure systolic 114 mm Hg 11/20/19 25 Blood pressure diastolic 80 mm Hg 025 Heart Rate 79 /min 11/19/2024 Height 69 in 11/19/2024 BMI 26.7 kg/m2 11/19/2024 Encounters Encounter Location Date Provider Diagnosis [facility] [address] [place]neros [phone] 11/19/2024 Lane Rodriguez Status post mitral valve repair Z98.890 ; Lumbago with sciatica, right side M54.41 ; Memory loss R41.3 ; Other chronic pain G89.29 ; Seasonal allergic rhinitis, unspecified trigger J30.2 ; Obstructive sleep apnea syndrome G47.33 ; Paroxysmal atrial fibrillation I48.0 and BMI 26.0-26.9,adult Z68.26 Assessments Encounter Date Diagnosis (ICD Code) Assessment Notes Treatment Notes Treatment Clinical Notes Section Notes 11/19/2024 Status post mitral valve repair (ICD-10 - Z98.890) 11/19/2024 Lumbago with sciatica, right side (ICD-10 - M54.41) 11/19/2024 Memory loss (ICD-10 - R41.3) 11/19/2024 Other chronic pain (ICD-10 - G89.29) 11/19/2024 Seasonal allergic rhinitis, unspecified trigger (ICD-10 - J30.2) 11/19/2024 Obstructive sleep apnea syndrome (ICD-10 - G47.33) 11/19/2024 Paroxysmal atrial fibrillation (ICD-10 - I48.0) 11/19/2024 BMI 26.0-26.9,adult (ICD-10 - Z68.26) Plan Of Treatment Next Appt Details Follow Up: 6 Months, Reason: Provider Name:Lane Motley , 05/20/2025 10:15:00 AM, [address], [address] , [place], [place], [id number], Progress Notes * JORGE ALBERTO WHITE DDOB: [birth year] (70 yo M)Acc No.[id number]:11/19/2024 Progress Notes Patient: JORGE ALBERTO BISHOP Provider: Lane Rodriguez M.D. :1955 A ge:69 Y S ex:Male Date:11/19/2024 Address:[address] [place] [address], [place] [address] Subjective: * Chief Complaints: * 1 . 3 month check up. 2. Needs labs & Prevnar vaccine. * HPI: C ardiology: The pt is here today for a check-up on Hyperlipidemia. Pt states he is doing good and denies any new concerns. Pt states he is fasting. Pt states pain management started him on Ropinirole, and he took his first dose last night. Has follow-up with Cardiology. Hx valve repair. Denies : Chest Pain. D enies : Short of Breath. D enies : Dizziness. D enies : Palpitations. L ower back: Low Back Pain S eeing Pain Management for injections.. E NT/respiratory: NO RECENT ASTHMATIC SYMPTOMS. * ROS: D ERMATOLOGY: no R maggy. [...] arital Status: . * Medications: T aking rOPINIRole HCl 0.25 MG Tablet 1 tablet 1 to 3 hours before bedtime Orally Once a day , Taking Acetaminophen [...] TABLET BY MOUTH EVERY DAY , Taking Metoprolol Tartrate 25 MG Tablet 1 tablet with food Orally Twice a day , Taking Breo Ellipta 100-25 MCG/ACT Aerosol Powder Breath Activated INHALE 1 PUFF ONCE A DAY , Taking Montelukast Sodium 10 MG Tablet TAKE 1 TABLET BY MOUTH EVERY NIGHT AT BEDTIME , Taking Rosuvastatin Calcium 20 MG Tablet TAKE 1 TABLET BY MOUTH EVERY NIGHT AT BEDTIME , Not-Taking Methocarbamol 500 MG Tablet 1 tablet Orally three times a day as needed , Not-Taking Amiodarone HCl 200 MG Tablet 1 tablet Orally Once a day , Not-Taking Mupirocin 2 % Ointment 1 application Externally Twice a day , Medication List reviewed and reconciled with the patient * Allergies: A dvil: excessive bleeding. Objective: * Vitals: W t: 180.8, Temp: 97.9, BP: 114/80, HR: 79, Nurse: CORTNEY, Ht: 69, BMI:26.7. * Examination: G eneral Examination: General Appearance: N AD. H EENT: u nremarkable.?Oral cavity: n o lesions, mucosa moist and WNL, no erythema. N ramirez: s upple, no lymphadenopathy. C hest: n ormal shape and expansion. H eart: R SR. L ungs: c lear to auscultation. A bdomen: soft and nontender, no organomegaly or masses. N eurologic Exam: I ntact, gait normal. S kin: n ormal, no rash. P eripheral pulses: n ormal . B ack: normal, mild dorsal kyphosis. E xtremities: n o leg edema. Assessment: * Assessment: 1. S tatus post mitral valve repair - Z98.890 (Primary) 2 . L umbago with sciatica, right side - M54.41 3 . M stevo loss - R41.3 4 . O ther chronic pain - G89.29 5 . S easonal allergic rhinitis, unspecified trigger - J30.2 6 . O bstructive sleep apnea syndrome - G47.33 7 . P aroxysmal atrial fibrillation - I48.0 8 . B WI 26.0-26.9,adult - Z68.26 ? Plan: * Treatment: Value Reference Range A /G Ratio 1.9 1.1-2.5 - * A lbumin 4.3 3.5-5.3 - g/dL * A lkaline Phosphatase 69 40-129 - IU/L * A LT (SGPT) 21 <5-55 - IU/L * A ST (SGOT) 17 <5-46 - IU/L * B ilirubin, Total 0.8 <0.2-1.2 - mg/dL * B UN 14 8-23 - mg/dL * C alcium 9.2 8.6-10.4 - mg/dL * C hloride 105 97-108 - mmol/L * C O2 26 22-32 - mmol/L * C reatinine 1.02 0.70-1.30 - mg/dL * G lucose 99 65-99 - mg/dL * P otassium 5.1 3.5-5.3 - mmol/L * S odium 140 135-145 - mmol/L * P rotein 6.6 6.0-8.3 - g/dL * e GFR by Creatinine 78 >59 - mL/min/1.73m2 * Dee Go 11/22/2024 11: 43:42 AM > Patient informed of normal results. * Procedure Codes: G 2211 Complex e/m visit add on, G8420 BMI<30 AND >=22 CALC & DOCU, 3074F SYST BP LT 130 MM HG, 3079F DIAST BP 80-89 MM HG * Follow Up: 6 Months * Images: Billing Information: * Visit Code: 31291 Office Visit, Est Pt., Level 4. * Procedure Codes: G2211 Complex e/m visit add on. G8420 BMI<30 AND >=22 CALC & DOCU. 3074F SYST BP LT 130 MM HG. 3079F DIAST BP 80-89 MM HG. * Electronic signature of Lane Rodrigeuz MD on 05/03/2025 at 07:56 AM EDT Sign off status: Pending * Provider: Lane Rodriguez M.D. Date: 0 11/19/2024 Generated for Printi ng/Faemeraldg/eTransmitting on: 1 07:56 AM EDT History and Physical Notes * HPI (History of Present Illness) Category Sub-Category Detail Notes Category Not es ENT/respiratory NO RECENT THMATIC SYMPTOMS. Cardiology Short of Breath Chest Pain Palpitations Dizziness Lower back Low Back Pain Seeing Pain Management for injections. Examination Category Sub-Category Detail Notes Category Not es General Examination HEENT: unremarkable Heart: RSR Lungs: clear to auscultatio n Abdomen: soft [...]
--- OUTSIDE RECORDS SUMMARY | 2025-05-03 07:55 | XMS_ITS | Clinical Summary ---
Author Organization [facility] Address [address] [place] [address] Care Team Providers Care Bioinformatics Support Specialist Name Role Phone Jamil Rodriguez MD Unavailable [phone] Jamil Rodriguez MD Primary Care Provider [phone] Brandt Burrell MD Unavailable [phone] Allergies Active Allergy Reactions Criticality Noted [...] regurgitation 03/05/2024 Grade II diastolic dysfunction 03/05/2024 Cardiac volume overload 03/05/2024 Acute blood loss anemia 03/05/2024 RBBB 03/05/2024 Hypocalcemia 03/05/2024 Atrial fibrillation 03/01/2024 Overview [...] (02/28/2024): 02/27 - plan to resume tomorrow BMI 25.0-25.9,adult 02/22/2024 Overview (02/28/2024): Complicates all aspects of care Mitral valve prolapse 02/22/2024 Resolved Problems Problem Noted Date Diagnosed Date Resolved Date Hypokalemia 03/06/2024 03/07/2024 Left atrial dilation 03/05/2024 025 Dyspnea 03/05/2024 03/07/2024 Fatigue 03/05/2024 03/07/2024 S/P left atrial appendage ligation 03/05/2024 04/07/2025 Overweight 03/05/2024 04/07/2025 Hypermagnesemia 03/05/2024 03/07/2024 Hyponatremia 03/05/2024 03/07/2024 Transient [...] drain 02/[address] output S/P MVR (mitral valve repair) 02/28/2024 04/07/2025 Overview (03/01/2024): 02/27 - s/p MV repair [...] status - Mobilization with PT/OT as appropriate Acute hypoxemic respiratory failure 02/28/2024 02/29/2024 Overview [...] and Family Not on file 03/01/2024 Attends [employer] Not on file 03/01 Active Member [...] place to sleep or slept in a snf (including now)? No 03/01/2024 Utilities Answer Date [...] Care Team (Late st Contact Info) Description 05/15/2025 10:00 AM EDT Office Visit [facility] [address], [address] [place] [id number] Buddy Ruggiero MD [address] [place] [address] Health Maintenance Due Date Last [...] Td Vaccines (1 - Tdap) 04/27/2022 04/26/2022 [id number] Vaccine (9 - season) 2025 04/28/2024, 12/06/2023, 04/15/2023, Additional history exists UKY-Influenza [...] this topic Medical Devices Implanted Type Area Tube Man Device Identifier Shelf Expiration Date Model / Serial / Lot Ring Mitral Annuloplasty Physioflex 40mm - [id number] - [id number] Implanted:Qty: 1 on 02/28/2024 by Buddy Ruggiero MD at [facility]-[id number] 12/18/2024 [id number] / [id number] / [id number] [place] [address] [place] [address] ANTHEM Advance Directives Documents on File Type Date Recorded Patient Litigation Docket Manager Expl anation Advance Directives and Living Will 02/28/2024 Power of Tying In Machine Operator 02/28/2024 * Full Code (Latest Code Status on File) Date Activated Date Inactivated Comments 02/28/2024 2:51 PM 03/07/2024 2:05 PM Question Answer Comments Patient has decision-making capacity? Yes Care Teams Bioinformatics Support Specialist Relationship Specialty Start Date End Date Jamil Rodriguez MD [address] [facility] [address] [place], [place] [address] PCP - General 02/20/24 Jamil Rodriguez MD [address] [facility] [address] [place] [address] Referring Physician 02/20/24 Brandt Burrell MD [address] [facility] [address] [place] [address] Referring Physician Cardiology 03/06/24
--- NOTE | 2025-05-03 07:56 | CA_ITS ---
APPROVED REPORT EXAM: Comprehensive 2D, Doppler, and color-flow Echocardiogram Parking Enforcer: Seda Jovel RDCS Ht: 5 ft 9 in Wt: 180lbs BSA: 1.98 BP: 120/73 mmHg Indications: MR REPAIR RING 2D Dimensions LA Volume 88.50 mL LA Volume Index 44.70 mL/m2 (M/F) 16-34 M-Mode Dimensions RVDd 1.51 cm (0.9-2.6) LA Diam 4.44 cm (1.9-4.0) LVDd 6.07 cm (3.5-5.7) LVDs 4.28 cm (3.5-5.7) IVSd 0.81 cm (0.6-1.1) PWd 0.85 cm (0.6-1.1) EF (Teich) 55.50% EPSs 4.32 cm FS 29.50% EDV (Teich) 184.80 mL ESV (Teich) 82.20 mL LV Diastology E Decel Time 377 (160-240 msec) E/A Ratio 0.7 Aortic Valve AI PHT 484.00 ms Mitral Valve MV E Max Toby. 97.0 (40-130 cm/s) MV A Velocity 143.0 (40-130 cm/s) E/A Ratio 0.67 MV PHT 110.0 ms Left Ventricle The left ventricle is normal size. Left ventricular systolic function is normal. The left ventricular ejection fraction is within the normal range. There is increased left ventricular wall thickness. There is normal LV segmental wall motion. The left ventricular diastolic function is indeterminate. LVEF is 55%. Right Ventricle The right ventricle is moderately dilated. The right ventricular systolic function is mildly reduced. Atria The left atrium is severely dilated. The right atrium is mildly dilated. There is no color Doppler evidence of interatrial shunt. Aortic Valve The aortic valve is mildly thickened. There is no hemodynamically significant aortic valvular stenosis. Mild aortic regurgitation is present. Mitral Valve s/p MV repair with annuloplasty ring. Mild mitral stenosis is present. Mean MV gradient 5 mmHg (HR 68 bpm). MVA by PHT method is 2.0 cm2. Trace mitral regurgitation is present. Tricuspid Valve The tricuspid valve leaflets are thin and pliable. Trace tricuspid regurgitation. There is insufficient TR jet to estimate RVSP. Pulmonic Valve The pulmonary valve is grossly normal in structure. Mild pulmonic valve regurgitation is present. Great Vessels The aortic root is normal in size. IVC is normal in size and collapses >50% with inspiration. Pericardium There is no pericardial effusion. Other Information Study Quality: Fair Conclusion Normal LV systolic function. Moderate RV dilation with mild reduction in RV function. Biatrial dilation. s/p MV repair with annuloplasty ring. No MR. Mild MS (mean MV gradient 5 mmHg at HR 68 bpm, MVA by PHT is 2.0 cm2). Mild AI, mild PI. Compared to prior study from 04/23/2024, there are no significant changes to biventricular function or transmitral hemodynamics. Electronically signed by : Maki Burrell MD 05/09/2025 12:20:28
--- OUTSIDE RECORDS SUMMARY | 2025-05-03 07:56 | XMS_ITS | Data Portability ---
Author Organization [place] - [facility] - [place] [facility] [place] [facility] Address [address] [place] [id number] Assessment No assessment recorded. Plan of Treatment Reminders Order Date Submit Date Provider Last Modified By Organization Details Last Modified Time Details Appointments None record ed. Lab None record ed. Referral None record ed. Procedures None record ed. Surgeries None record ed. Imaging None record ed. Medication Orders None record ed. Patient TargetsNo targets recorded. Patient Instructions Encounter Date Encounter Id Patient Instructions Last Modified By Organization Details Last Modified Time 03/24/2023 [id number] made sublingual drops Not available 03/24/2023 09:53:11 04/18/2023 [id number] made sublingual drops [email or web address] Not available 04/18/2023 12:02:04 11/09/2023 [id number] made sublingual drops [email or web address] Not available 11/09/2023 11:05:28 04/20/2024 [id number] made sublingual drops [email or web address] Not available 04/20/2024 09:33:03 Reason for Referral None Reported. Medical Equipment None Reported. Medications Name Sig Start Date Stop Date Status Note LastModified by Organization Details LastModified Time clindamycin HCl 300 mg capsule TAKE 1 CAPSULE BY MOUTH EVERY 12 HOURS FOR 7 DAYS active Not Available Not Available N ot Available fexofenadine 180 mg tablet TAKE 1 TABLET BY MOUTH EVERY DAY active Not Available Not Available No t Available valacyclovir 500 mg tablet TAKE 1 TABLET BY MOUTH THREE TIMES A DAY active Not Available Not Available Not Available ciprofloxaci n 500 mg tablet TAKE 1 TABLET BY MOUTH EVERY 12 HOURS FOR 10 DAYS active Not Available Not Available Not Available sulfamethoxa zole 800 mg-trimethop rim 160 mg tablet TAKE 1 TABLET BY MOUTH EVERY 12 HOURS FOR 7 DAYS active Not Available Not Available N ot Available sulfacetamid e sodium 10 % eye drops INSTILL 1 DROP INTO THE AFFECTED EYE(S) EVERY 4 HOURS FOR 7 DAYS active Not Available Not Available No t Available montelukast 10 mg tablet TAKE 1 TABLET BY MOUTH EVERYDAY AT BEDTIME active Not Available Not Available No t Available methylpredni solone 4 mg tablets in a dose pack TAKE 6 TABLETS ON DAY 1 DIRECTED ON PACKAGE AND DECREASE BY 1 TAB EACH DAY FOR A TOTAL OF 6 DAYS active Not Available Not Available No t Available nabumetone 500 mg tablet TAKE 2 TABLETS EVERY DAY active Not Available Not Available No t Available amoxicillin 500 mg-potassium clavulanate 125 mg tablet 1 TAB ORALLY THREE TIMES A DAY FOR 7 DAYS active Not Available Not Available No t Available rosuvastatin 20 mg tablet TAKE 1 TABLET BY MOUTH EVERY NIGHT AT BEDTIME active Not Available Not Available No t Available GaviLyte-G 236 gram-22.74 gram-6.74 gram-5.86 gram oral solution TAKE 240 ML EVERY 10 MINUTES UNTIL FECAL EFFLUENT IS CLEAR-- FOLLOW MAILED INSTRUCTION S active Not Available Not Available No t Available Breo Ellipta 100 mcg-25 mcg/dose powder for inhalation INHALE 1 PUFF ONCE A DAY active Not Available Not Available No t Available Vitals None Recorded Social History None recorded. Functional Status None recorded. Mental Status None recorded. Family History Nothing Reported. Medical History No medical history recorded. Past Encounters Encounter ID Performer Location Encounter Start Date Encounter Closed Date Diagnosis/Indication Diagnosis SNOMED-CT Code Diagnosis ICD10 Code Diagnosis IMO Codes Diagnosis Note [id number] Shira Lawrence MD [facility] [address] [place] [address] [place] [id number] 04/27/2022 14:45:45 04/27/2022 15:02:26 Allergic rhinitis 93070148 J30.9 [id number] Shira Lawrence MD [facility] [address] [place] [address] [place] [id number] 08/13/2022 09:58:19 08/13/2022 10:00:11 Allergic rhinitis 79515251 J30.9 [id number] Shira Lawrence MD [facility] [address] [place] [address] 12/09/2022 13:34:36 12/09/2022 13:36:38 Allergic rhinitis 43036580 J30.9 [id number] Shira Lawrence MD [facility] [address] [place] [address] 03/24/2023 09:47:31 03/24/2023 09:53:39 Allergic rhinitis 64933007 J30.9 [id number] Shira Lawrence MD [facility] [place] [address] [address] [facility] [place] [address] 04/12/2023 09:15:04 04/12/2023 10:51:39 Allergic rhinitis 30788060 J30.9 Patient here for repeat allergy testing. Last tested in 2013. Please see scanned in document for results. Patient would like to continue allergy drops. [id number] Shira Lawrence MD [facility] [address] [place] [address] [place], [place] [id number] 04/18/2023 12:00:32 04/18/2023 12:03:20 Allergic rhinitis 96713330 J30.9 [id number] Shira Lawrence MD [facility] [address] [place] [address] [place] [id number] 11/09/2023 11:04:24 11/09/2023 11:05:52 Allergic rhinitis 33843393 J30.9 [id number] Shira Lawrence MD [facility] [address] [place] [address] [place] [id number] 04/20/2024 09:31:57 04/20/2024 09:33:30 Allergic rhinitis 47771783 J30.9 Health Concerns Section Related Observation LastModified by Organization Detai ls LastModified Time None Recorded Concern Status LastModified by Organization Details LastModified Time None Recorded Advance Directives Directive None Recorded Payers Insurance Date Sequence Insurance Name Policy Number Policy Blue Covered Member ID Blue Member ID Guarantor Name 04/20/2024 2 [place] [id number] Nabor Awan [id number] Nabor Awan 04/20/2024 1 [place] Nabor Awan [id number] Nabor Awan 04/12/2023 1 *SELF PAY* Gill Awan
--- OUTSIDE RECORDS SUMMARY | 2025-05-03 07:56 | XMS_ITS | Patient Health Record ---
Author Organization [facility] Address [address] [id number] Care Team Providers Care Bingo Checker Name Role Phone Lane Rodriguez Primary Care Provider Humberto Enamorado Unavailable [phone] Marsha Thornton Unavailable [phone] Allergies Allergen (clinical drug ingredient) Drug/Non Drug [...] Interpretation:Normal Performing Lab: Notes/Report: Test performed by [facility], [facility] [address] [place] [address] , [address], [place] [address] Louie Cagle MD, [employer] CLIA: [id number] Sodium 136 135-145 mmol/L Potassium 4.5 3.5-5.3 [...] Interpretation:Normal Performing Lab: Notes/Report: Test performed by [facility], [address] , [address], [place] [address] Louie Cagle MD, [employer] CLIA: [id number] Cholesterol 150 <200 mg/dL Triglycerides 84 <150 [...] date:11/22/2024 11:43:52 AM Interpretation:Normal Performing Lab: Notes/Report: CLIA: [id number] Louie Cagle MD, [employer] [address] [place] [address] , [address], [place] [address] Test performed by [facility], [facility] Sodium 140 135-145 mmol/L Potassium 5.1 3.5-5.3 [...] 1.9 1.1-2.5 Reason For Referral Diagnosis 1 Degenerative disc di sease, cervical (M50.30) Referral Organization [facility] Referring Provider First Name Lane Tanner Referring Provider Last Name Michael Referring Provider Speciality Family Pra ctice Referred Provider Specialty Pain Managem ent General Notes Crista Burrell 024 12:25:45 PM > faxed to [facility] Pain Management, Crista Burrell 07/06/2024 9:14:47 AM > confirmed with office they received referral; calling today to set up appt Referral Priority Routine Reason Please use [facility] Diagnosis 1 Lumbago with sciatic a, right side (M54.41) Referral Organization [facility] Referring Provider First Name Humberto Referring Provider Last Name Kelsea Referring Provider Speciality [facility] ctice Referred Provider Physical Therapy, . Referred Provider Specialty Physical The rapist General Notes Crista Burrell 2023 9:11:45 AM > faxed to [facility] PT Referral Priority Routine Medications [...] xFluzone High Dose-private (65yr&older) Unknown 04/28/2024 Administered Shingrix Unknown 05/15/2020 Administered Prevnar (PCV20) IM Intramuscular 11/17/2022 Administered [...] Administered COVID 19 Moderna Unknown 10/19/2021 Administered Problems Problem Type SNOMED Code ICD Code Onset Dates Problem Status W/U Status Risk Notes Problem Arthropathy of lumba r facet joint (487939384) Lumbar facet arthropathy (M47.816) Active confirmed Problem Obstructive sleep apnea (04074862) Obstructive sleep apnea (G47.33) Active confirmed Problem Paroxysmal atrial fibrillation (829588657) Paroxysmal atrial fibrillation (I48.0) Active confirmed Problem Memory loss (88147613) Memory loss (R41.3) Active confirmed Problem Sciatica (94219090) Lumbago with sciatica, right side (M54.41) Active confirmed Problem Chronic pain (52541271) Other chronic pain (G89.29) Active confirmed Problem Degeneration of cervical intervertebral disc (50933578) Degenerative disc disease, cervical (M50.30) Active confirmed Problem Chronic pain (47904615) Other chronic pain (G89.29) Active confirmed Problem Obstructive sleep apnea syndrome (30799679) Obstructive sleep apnea syndrome (G47.33) Active confirmed Problem Carpal tunnel syndrome of right wrist (705499494630468) Carpal tunnel syndrome of right wrist (G56.01) Active confirmed Problem Uncomplicated mild persistent asthma (061432273) Mild persistent asthma without complication (J45.30) Active confirmed Problem Exacerbation of moderate persistent asthma (disorder) (032894894) Moderate persistent asthma with acute exacerbation (J45.41) Active confirmed Problem Mitral valve disorde r (48121836) Mitral valve insufficiency, unspecified etiology (I34.0) Active confirmed Problem Occlusion and stenosis of multiple and bilateral cerebral arteries (516355745) Bilateral carotid artery stenosis (I65.23) Active confirmed Problem Allergic rhinitis (08338536) Seasonal allergic rhinitis due to other allergic trigger (J30.89) Active confirmed Problem Aortic valve sclerosis (57849444) Aortic valve sclerosis (I35.8) Active confirmed Problem Pure hypercholesterolemia (996287316) Pure hypercholesterolemia (E78.00) Active confirmed Problem Benign prostatic hypertrophy without outflow obstruction (375897062) Benign prostatic hyperplasia without lower urinary tract symptoms (N40.0) Active confirmed Problem Right inguinal pain (77376455694348186) Right inguinal pain (R10.31) Active confirmed Problem Seasonal allergic rhinitis (041730787) Seasonal allergic rhinitis, unspecified trigger (J30.2) Active confirmed Problem Degenerative lumbar spinal stenosis (605623502) Degenerative lumbar spinal stenosis (M48.061) Active confirmed Vital Signs Heart Rate 79 /min 11/19/2024 Blood pressure diastolic 80 mm Hg 11/19/2024 Height 69 in 11/19/2024 Blood pressure systolic 114 mm Hg 11/19/2024 Weight 180.8 lbs 11/19/2024 BMI 26.7 kg/m2 11/19/2024 Encounters Encounter Location Date Provider Diagnosis [facility] [address] [facility] [address] [place] [id number] 06/22/2024 Marsha Crowdy Neck muscle spasm M6 2.838 [facility] [address] [place], [place] [id number] 07/07/2024 Humberto Noble Lumbago with sciatic a, right side M54.41 ; Other chronic pain G89.29 ; Degenerative lumbar spinal stenosis M48.061 ; Lumbar facet arthropathy M47.816 and Degeneration of intervertebral disc of lumbar region with discogenic back pain and lower extremity pain M51.362 [facility] [address] [facility] [address] [place], [place] [id number] 07/26/2024 Lane Rodriguez Pure hypercholestero lemia E78.00 and Status post mitral valve repair Z98.890 [facility] [address] [place] [address] [place] [id number] 11/19/2024 Lane Rodriguez Status post mitral v alve repair Z98.890 ; Lumbago with sciatica, right side M54.41 ; Memory loss R41.3 ; Other chronic pain G89.29 ; Seasonal allergic rhinitis, unspecified trigger J30.2 ; Obstructive sleep apnea syndrome G47.33 ; Paroxysmal atrial fibrillation I48.0 and BMI 26.0-26.9,adult Z68.26 [facility] [address], [place] [id number] 07/02/2024 Lane Rodriguez Degenerative disc di sease, cervical M50.30 [facility] [address] [place], [place] [id number] 10/12/2024 Lane Rodriguez Assessments Encounter Date Diagnosis (ICD Code) Assessment Notes Treatment Notes Treatment Clinical Notes Section Notes 07/26/2024 Pure hypercholesterolemia (ICD-10 - E78.00) 07/26/2024 Status post mitral valve repair (ICD-10 - Z98.890) 11/19/2024 Lumbago with sciatic a, right side (ICD-10 - M54.41) 11/19/2024 Status post mitral valve repair (ICD-10 - Z98.890) 06/22/2024 Neck muscle spasm (ICD-10 - M62.838) [...] Degenerative lumbar spinal stenosis (ICD-10 - M48.061) 11/19/2024 Memory loss (ICD-10 - R41.3) 11/19/2024 Other chronic pain (ICD-10 - G89.29) 07/07/2024 Lumbar facet arthropathy (ICD-10 - M47.816) 07/07/2024 Degeneration of intervertebral disc of lumbar region with discogenic back pain and lower extremity pain (ICD-10 - M51.362) 11/19/2024 Seasonal allergic rhinitis, unspecified trigger (ICD-10 - J30.2) 11/19/2024 Obstructive sleep ap derek syndrome (ICD-10 - G47.33) 11/19/2024 Paroxysmal atrial fibrillation (ICD-10 - I48.0) 11/19/2024 BMI 26.0-26.9,adult (ICD-10 - Z68.26) Plan Of Treatment Next Appt Details Provider Name:Lane Tanner Tolu er, 05/20/2025 10:15:00 AM, [address], [address], [place], [place], [id number], Insurance Providers Payer Name Payer Address Payer Phone Subscriber Number Group Number Insured Name Patient Relationship to Insured Coverage Start Date Coverage End Date MEDICARE PART B [address] [address] [place] [phone] [id number] JORGE ALBERTO WHITE Self - patient is the insured [facility] [address] [place] [id number] [id number] [facility] JORGE ALBERTO WHITE Self - patient [...]
--- OUTSIDE RECORDS SUMMARY | 2025-05-03 07:56 | XMS_ITS | Clinical Summary ---
[facility] Organization [facility] Address [address] [place] [address] Care Team Providers Care Bouffant Curtain Machine Tender Name Role Phone Jamil Rodriguez MD Primary Care Provider [phone] Medications gabapentin (NEURONTIN) 400 MG capsule Take [...] ANNUAL PHYSICAL 04/26/2019 HEPATITIS C SCREENING 04/26/2019 INFLUENZA VACCINE 02/15/2025 04/26/2019 COVID-19 Vaccine ( season) 2025 Insurance MEDICARE A & B Member Subscriber Plan / Payer (Ef fective 2018-Present) Name:Nabor Awan Member ID:[id number] Relation to Subscriber:Self Name:Nabor Awan Subscriber ID:[id number] Payer ID:[id number] Group ID:Not on file Type:Not on file Address: [address] Care Teams Bouffant Curtain Machine Tender Relationship Specialty Start Date End Date Jamil Rodriguez MD [address] [place] [address] PCP - General Family Medicine 02/11/21
== END 2025-05-03 23:59 | disposition home or self-care (01) ==
LOC: RT 07:53
PROVIDERS: PCP Family Medicine; Visit Provider Thoracic Surgery (Cardiothoracic Vascular Surgery)
DX: I08.8 Other rheumatic multiple valve diseases (principal); Z98.890 Other specified postprocedural states
CPT/HCPCS: 93306